=== PATIENT | female | born 1935 | race Caucasian/White ===

== ENCOUNTER 2017-06-17 20:29 | Inpatient (IN) | payer MEDICARE ==
[~2017-06-17] VITALS: Ht 157.5 cm; Wt 78.5 kg
[~2017-06-17 20:29] MED LIST: ACCUNEB0.63 MG/3; ADVIL200 M1 PO; ANASTROZOLE1 GM PO; ASPIR 8181 MG PO; AZOR 10-20 MG1 EACH PO; BETIMOL5 M1 OU; CARVEDILOL6.25 MG PO; CLOPIDOGREL75 MG PO; FEXOFENADINE H180 MG PO; FLONASE16 GM; GLIPIZIDE ER2.5 MG PO; GLUCOPHAGE500 MG PO; HYDROCHLOROTH12.5 MG PO; NEXIUM40 MG PO; OMEPRAZOLE20 M1 PO; PANTOPRAZOLE SO40 MG PO; PROAIR HFA INH8.5 GM IH; REGLAN10 MG PO; SIMVASTATIN20 MG PO; SYMBICORT 80-10.2 GM INH; VITAMIN C60 MG PO; VITAMIN D400 UNIT PO; ZYRTEC5 M1 PO; [UNRECOGNIZED DRUG - OTHER] PO; nasacort
[2017-06-17] MEDS ORDERED: ASPIRIN 81 MG CHEW TAB PO ONE (20:45)
[2017-06-17] MEDS ORDERED: NITROGLYCERIN 2% OINT 1 GM PKT TOP ONE (20:45)
[2017-06-17] MEDS ORDERED: ASPIRIN 81 MG CHEW TAB ONE (20:54)
[2017-06-17 21:00] LABS: BASOPHILS # (AUTO) 0.1 (0.0-0.1); BASOPHILS % 0.6 % (0.0-1.0); EOSINOPHILS # (AUTO) 0.2 (0.0-0.4); EOSINOPHILS % 1.5 % (0.0-6.0); HEMATOCRIT 43.5 % (34.2-44.1); HEMOGLOBIN 14.6 g/dL (12.0-16.0); LYMPHOCYTES # (AUTO) 1.7 (1.0-3.2); MEAN CORPUSCULAR HEMOGLOBIN 29.6 pg (28-32); MEAN CORPUSCULAR HGB CONC 33.6 g/dL (31-35); MEAN CORPUSCULAR VOLUME 88.1 fL (81-99); MONOCYTES # (AUTO) 0.5 (0.2-0.8); MONOCYTES % 5.4 % (4.4-11.3); NEUTROPHILS # (AUTO) 7.5 (2.1-6.9); NEUTROPHILS % 74.9 % (38.7-80.0); PLATELET COUNT 231 x10e3/uL (140-360); RED BLOOD COUNT 4.94 x10e6/uL (3.6-5.1); RED CELL DISTRIBUTION WIDTH 14.5 % (11.7-14.4)
[2017-06-17 21:03] LABS: BILIRUBIN,URINE NEGATIVE (NEGATIVE); CLARITY,URINE CLEAR (CLEAR); COLOR,URINE YELLOW (YELLOW); KETONES,URINE NEGATIVE (NEGATIVE); LEUKOCYTE ESTERASE ,URINE NEGATIVE (NEGATIVE); NITRITE,URINE NEGATIVE (NEGATIVE); PROTEIN,URINE DIPSTICK NEGATIVE (NEGATIVE); URINE UROBILINOGEN 0.2 mg/dL (0.2 - 1)
[2017-06-17 21:12] LABS: ALANINE AMINOTRANSFERASE 8 IU/L (0-55); ALBUMIN 3.7 g/dL (3.5-5.0); ALBUMIN/GLOBULIN RATIO 1.1 (0.8-2.0); ALKALINE PHOSPHATASE 84 IU/L (40-150); ANION GAP 15.7 mmol/L (8-16); BLOOD UREA NITROGEN 15 mg/dL (7-26); BUN/CREATININE RATIO 18 (6-25); CALCIUM 8.9 mg/dL (8.4-10.2); CARBON DIOXIDE 22 mmol/L (22-29); CHLORIDE 107 mmol/L (98-107); CREATINE KINASE 49 IU/L (29-168); CREATININE, SERUM 0.85 mg/dL (0.57-1.11); EST GLOMERULAR FILTRATION RATE > 60 ML/MIN (60-); GLUCOSE 156 mg/dL (74-118); POTASSIUM 3.7 mmol/L (3.5-5.1); SODIUM 141 mmol/L (136-145)
[2017-06-17] MEDS ORDERED: BIVALIRUDIN 250 MG/VIAL IV ONE ×2 (21:23→23:12)
[2017-06-17] MEDS ORDERED: HEPARIN SOD (PORCINE) 1000 UNIT/ML 30ML ONE (21:23)
[2017-06-17] MEDS ORDERED: NITROGLYCERIN/D5W 200 MCG/ML 0 ML ONE (21:24)
[2017-06-17] MEDS ORDERED: LIDOCAINE HCL 2% LOCAL 20 ML VIAL ONE (21:24)
[2017-06-17] MEDS ORDERED: HEPARIN SOD/SOD CHLORIDE 2,000 ML ONE (21:24)
[2017-06-17] MEDS ORDERED: SODIUM CHLORIDE 0.9% 1000ML 1,000 ML ONE ×2 (21:24→22:27)
[2017-06-17] MEDS ORDERED: IOPAMIDOL 300MG/ML 100 ML INFUS..BTL IV ONE (21:25)
--- OUTSIDE RECORDS SUMMARY | 2017-06-17 21:29 | XMS REPORT | Continuity of Care Document ---
Author Author [facility] Organization [facility] Address [address] [place] [address] Phone Unavailable Care Team Providers Care Mangle Tender Cloth Name Role Phone NONSTAFF PCP Unavailable Insurance Providers Guarantor Silverio Polanco Address [address] [place] [address] Email NONE Payer [employer] Medicare Advantage Policy Number [id number] Subscriber's Name Silverio Polanco Relationship 18 Self / Same As Patient Effective Date 13 Advance Directives Directive Response Recorded Date/Time Does the patient have an advance directive? No 02/13/16 5:15pm If yes, is advance directive on file with [facility]? No 02/13/16 5:15pm If not on file with [facility] will patient provide a copy? Yes 06/17/17 8:33pm Do you have a Directive to Physician? No 06/17/17 8:33pm Do you have a Medical Power of Ledger Clerk? No 06/17/17 8:33pm Do you have an out of hospital Do Not Resuscitate Order? No 06/17/17 8:33pm Do you have any special needs we should be aware of? No 06/17/17 8:33pm Do you have a support person here with you today? Yes 06/17/17 8:33pm Did patient receive Notice of Privacy Practices? Yes 06/17/17 8:33pm Did patient receive patient rights and responsibilities? Yes 06/17/17 8:33pm Problems Medical Problem Onset Date Status Esophageal stricture 02/24/2015 Acute History of esophageal stricture 02/24/2015 Acute History of esophageal stricture 02/24/2015 Acute History of esophageal stricture 02/24/2015 Acute Stricture esophagus 02/24/2015 Acute Stricture esophagus 02/24/2015 Acute Vomiting 02/24/2015 Acute Medications Current Home Medications Medication Dose Units Route Directions Days Qty Instructions Start Date Albuterol Sulfate (Proair Hfa Inhaler*) 8.5 Gm Inh 2 Inh Inhalation Every 6 Hours for Shortness Of Breath Amlodipine Bes/Olmesartan Med (Tushar 10-20 Mg Tablet) 1 Each Tablet 5 Mg Oral Twice A Day Anastrozole 1 Gm Powder 1 Mg Oral Daily Budesonide/Formoterol Fumarate (Symbicort 80-4.5 Mcg Inhaler) 10.2 Gm Hfa.aer.ad 1 Each Inhalation Twice A Day Carvedilol 6.25 Mg Tablet 6.25 Mg Oral Twice A Day Cholecalciferol (Vitamin D3) (Vitamin D) 400 Unit Capsule Oral Daily Clopidogrel Bisulfate (Clopidogrel) 75 Mg Tablet 75 Mg Oral Daily 30 Tab Fexofenadine Hcl 180 Mg Tablet 180 Mg Oral Bedtime THERAPEUTICALLY SUBSTITUTED WITH LORATIDINE Glipizide (Glipizide Er) 2.5 Mg Tab.er.24 2.5 Mg Oral Am Ibuprofen (Advil) 200 Mg Capsule 200 Mg Oral As Needed Metoclopramide Hcl (Reglan) 10 Mg Tablet 10 Mg Oral Before Meals And At Bedtime 30 Days 02/26/15 Nasacort 1 [place] Nasal Daily as needed for Nasal Congestion Pantoprazole Sodium (Protonix) 40 Mg Tablet.dr 40 Mg Oral Daily Simvastatin 20 Mg Tablet 20 Mg Oral Qhs Timolol (Betimol) 5 Ml Drops 0.5 Past Home Medications Medication Directions Ordered Status Albuterol Sulfate (Accuneb) 0.63 Mg/3 Ml Vial.neb, 90 Mcg Four Times Daily Discontinued Ascorbic Acid (Vitamin C) 60 Mg Lozenge, Oral Daily Discontinued Aspirin (Aspir 81) 81 Mg Tablet.dr, 81 Mg Oral Daily Discontinued Cetirizine Hcl (Zyrtec) 5 Mg Tab.chew, Oral Daily Discontinued Esomeprazole Magnesium (Nexium) 40 Mg Capsule.dr, 40 Mg Oral Before Breakfast 02/26/15 Discontinued Fluticasone Propionate (Flonase) 16 Gm [place].susp, 2 Daily Discontinued Hydrochlorothiazide 12.5 Mg Tablet, 12.5 Mg Oral Daily 02/26/15 Discontinued Metformin Hcl (Glucophage) 500 Mg Tablet, 500 Mg Oral Twice A Day Discontinued Omeprazole 20 Mg Tablet.dr, 20 Mg Oral Daily Discontinued Pseudoephed/Chlorpheniramine (Chlorphen-Pse Drops) 30 Ml Drops, Oral Discontinued Social History Social History Problem Response Recorded Date/Time Onset Date Status Hx Psychiatric Problems No 02/13/2016 5:15pm Not Applicable Not Applicable Hx Eating Disorder No 02/13/2016 5:15pm Not Applicable Not Applicable Hx Substance Use Disorder No 02/13/2016 5:15pm Not Applicable Not Applicable Hx Depression No 02/13/2016 5:15pm Not Applicable Not Applicable Hx Alcohol Use No 02/13/2016 5:15pm Not Applicable Not Applicable Hx Substance Use Treatment No 02/13/2016 5:15pm Not Applicable Not Applicable Hx Physical Abuse No 02/13/2016 5:15pm Not Applicable Not Applicable Smoking Status Start Date Stop Date Never Smoker Hospital Discharge Instructions No hospital discharge instruction information available. Plan of Care Discharge Date 06/17/17 9:08pm Disposition ADMITTED Condition at Discharge Stable Forms Provided Work/School Excuse Prescriptions See Medication Section Functional Status No functional status information available. Allergies, Adverse Reactions, Alerts Allergen Type Severity Reaction Status Last Updated Tramadol Adverse Reaction Unknown NAUSEA Active 02/13/16 ALPHANGAN Allergy Intermediate ITCHING Active 02/13/16 PCN Allergy Unknown UNKNOWN Active 02/13/16 Immunizations No immunization information available. Vital Signs Acute Vital Signs Vital Response Date/Time Height 5 ft 3 in 06/17/2017 8:32pm Weight 163 lb 06/17/2017 8:32pm Body Mass Index 28.9 kg/m^2 06/17/2017 8:32pm Results Laboratory Results Test Name Result Units Flags Reference Collection Date/Time Result Date/ Time Comments White Blood Count 9.97 x10e3/uL 4.8-10.8 06/17/2017 8:45pm 06/17/2017 9 :06pm Red Blood Count 4.94 x10e6/uL 3.6-5.1 06/17/2017 8:45pm 06/17/2017 9: 06pm Hemoglobin 14.6 g/dL 12.0-16.0 06/17/2017 8:45pm 06/17/2017 9:06pm Hematocrit 43.5 % 34.2-44.1 06/17/2017 8:45pm 06/17/2017 9:06pm Mean Corpuscular Volume 88.1 fL 81-99 06/17/2017 8:45pm 06/17/2017 9: 06pm Mean Corpuscular Hemoglobin 29.6 pg 28-32 06/17/2017 8:45pm 06/17/2017 9:06pm Mean Corpuscular Hemoglobin Concent 33.6 g/dL 31-35 06/17/2017 8:45pm 06/17/2017 9:06pm Red Cell Distribution Width 14.5 % H 11.7-14.4 06/17/2017 8:45pm 2017 9:06pm Platelet Count 231 x10e3/uL 140-360 06/17/2017 8:45pm 06/17/2017 9: 06pm Neutrophils (%) (Auto) 74.9 % 38.7-80.0 06/17/2017 8:45pm 06/17/2017 9: 06pm Lymphocytes (%) (Auto) 17.0 % L 18.0-39.1 06/17/2017 8:45pm 06/17/2017 9 :06pm Monocytes (%) (Auto) 5.4 % 4.4-11.3 06/17/2017 8:45pm 06/17/2017 9: 06pm Eosinophils (%) (Auto) 1.5 % 0.0-6.0 06/17/2017 8:45pm 06/17/2017 9: 06pm Basophils (%) (Auto) 0.6 % 0.0-1.0 06/17/2017 8:45pm 06/17/2017 9:06pm IM GRANULOCYTES % 0.6 % 0.0-1.0 06/17/2017 8:45pm 06/17/2017 9:06pm Neutrophils # (Auto) 7.5 H 2.1-6.9 06/17/2017 8:45pm 06/17/2017 9: 06pm Lymphocytes # (Auto) 1.7 1.0-3.2 06/17/2017 8:45pm 06/17/2017 9:06pm Monocytes # (Auto) 0.5 0.2-0.8 06/17/2017 8:45pm 06/17/2017 9:06pm Eosinophils # (Auto) 0.2 0.0-0.4 06/17/2017 8:45pm 06/17/2017 9:06pm Basophils # (Auto) 0.1 0.0-0.1 06/17/2017 8:45pm 06/17/2017 9:06pm Absolute Immature Granulocyte (auto 0.06 x10e3/uL 0-0.1 06/17/2017 8: 45pm 06/17/2017 9:06pm Urine Color YELLOW YELLOW 06/17/2017 8:45pm 06/17/2017 9:05pm Urine Clarity CLEAR CLEAR 06/17/2017 8:45pm 06/17/2017 9:05pm Urine Specific [place] 1.020 1.010-1.025 06/17/2017 8:45pm 2017 9:05pm Urine pH 6.5 5 - 7 06/17/2017 8:45pm 06/17/2017 9:05pm Urine Leukocyte Esterase NEGATIVE NEGATIVE 06/17/2017 8:45pm 2017 9:05pm Urine Nitrite NEGATIVE NEGATIVE 06/17/2017 8:45pm 06/17/2017 9:05pm Urine Protein NEGATIVE NEGATIVE 06/17/2017 8:45pm 06/17/2017 9:05pm Urine Glucose (UA) TRACE H NEGATIVE 06/17/2017 8:45pm 06/17/2017 9: 05pm Urine Ketones NEGATIVE NEGATIVE 06/17/2017 8:45pm 06/17/2017 9:05pm Urine Urobilinogen 0.2 mg/dL 0.2 - 1 06/17/2017 8:45pm 06/17/2017 9: 05pm Urine Bilirubin NEGATIVE NEGATIVE 06/17/2017 8:45pm 06/17/2017 9: 05pm Urine Blood TRACE H NEGATIVE 06/17/2017 8:45pm 06/17/2017 9:05pm Sodium Level 141 mmol/L 136-145 06/17/2017 8:45pm 06/17/2017 9:13pm Potassium Level 3.7 mmol/L 3.5-5.1 06/17/2017 8:45pm 06/17/2017 9:13pm Chloride Level 107 mmol/L 98-107 06/17/2017 8:45pm 06/17/2017 9:13pm Carbon Dioxide Level 22 mmol/L 22-29 06/17/2017 8:45pm 06/17/2017 9: 13pm Anion Gap 15.7 mmol/L 8-16 06/17/2017 8:45pm 06/17/2017 9:13pm Blood Urea Nitrogen 15 mg/dL 7-26 06/17/2017 8:45pm 06/17/2017 9:13pm Creatinine 0.85 mg/dL 0.57-1.11 06/17/2017 8:45pm 06/17/2017 9:13pm BUN/Creatinine Ratio 18 6-25 06/17/2017 8:45pm 06/17/2017 9:13pm Estimat Glomerular Filtration Rate > 60 ML/MIN 60- 06/17/2017 8:45pm 9:13pm Ranges were taken from the National Kidney Disease Education Program and the National Kid[employer] Foundation literature. Reference ranges: 60 or greater: Normal 16-59 (for 3 consecutive months): Chronic kidney disease 15 or less: Kidney failure Glucose Level 156 mg/dL H 74-118 06/17/2017 8:45pm 06/17/2017 9:13pm Calcium Level 8.9 mg/dL 8.4-10.2 06/17/2017 8:45pm 06/17/2017 9:13pm Total Bilirubin 0.5 mg/dL 0.2-1.2 06/17/2017 8:45pm 06/17/2017 9:13pm Aspartate Amino Transf (AST/SGOT) 13 IU/L 5-34 06/17/2017 8:45pm 2017 9:13pm Alanine Aminotransferase (ALT/SGPT) 8 IU/L 0-55 06/17/2017 8:45pm 06/17 9:13pm Total Protein 7.2 g/dL 6.5-8.1 06/17/2017 8:45pm 06/17/2017 9:13pm Albumin 3.7 g/dL 3.5-5.0 06/17/2017 8:45pm 06/17/2017 9:13pm Globulin 3.5 g/dL 2.3-3.5 06/17/2017 8:45pm 06/17/2017 9:13pm Albumin/Globulin Ratio 1.1 0.8-2.0 06/17/2017 8:45pm 06/17/2017 9: 13pm Alkaline Phosphatase 84 IU/L 40-150 06/17/2017 8:45pm 06/17/2017 9: 13pm Creatine Kinase 49 IU/L 29-168 06/17/2017 8:45pm 06/17/2017 9:13pm Procedures No procedure information available. Encounters Encounter Location Arrival/Admit Date Discharge/Depart Date Attending Provider Departed Emergency Room [facility] 06/17/17 8:29pm 9:08pm LEONORA BUTTERFIELD MD
--- NOTE | 2017-06-17 21:32 | Diagnostic Imaging Report ---
EXAMINATION: CHEST SINGLE (PORTABLE) INDICATION: Chest pain COMPARISON: None FINDINGS: TUBES and LINES: None. LUNGS: Lungs are not well inflated. There are bibasilar atelectasis. Scarring at the level of the right suprahilar region PLEURA: No pleural effusion or pneumothorax. HEART AND MEDIASTINUM: The cardiomediastinal silhouette is remarkable for right hilar calcification, most likely postsurgical. There are atherosclerotic calcifications within the aorta. BONES AND SOFT TISSUES: No acute osseous lesion. Dextrorotoscoliosis of the thoracic spine. Soft tissues are unremarkable. UPPER ABDOMEN: No free air under the diaphragm. IMPRESSION: 1. No acute thoracic abnormality. 2. Postsurgical changes noted in the right hilar region with prominent calcification compatible with lymph node Signed by: Dr. Jamie Cevallos M.D. on 06/17/2017 9:29 PM
[2017-06-17] MEDS ORDERED: SODIUM CHLORIDE 0.9% 100 ML 100 ML ONE ×2 (21:35→23:12)
[2017-06-17 21:52] LABS: BACTERIA,URINE FEW /HPF; EPITHELIAL CELLS,URINE MODERATE /LPF; RBC,URINE 0-5 /HPF (0-5); WBC,URINE (MAN) 0-5 /HPF (0-5)
[2017-06-17] MEDS ORDERED: MORPHINE SULFATE 2 MG/ML SYR ONE (22:09)
[2017-06-17] MEDS ORDERED: ATROPINE SULFATE 0.1 MG/ML 10ML SYR ONE ×2 (22:20→22:22)
[2017-06-17] MEDS ORDERED: NOREPINEPHRINE BITARTRATE/ NS 250 ML ONE (22:30)
[2017-06-17] MEDS ORDERED: ASPIRIN 325 MG TAB ONE (22:36)
[2017-06-17] MEDS ORDERED: CLOPIDOGREL BISULFATE 75 MG TAB ONE (22:36)
[2017-06-17] MEDS ORDERED: ONDANSETRON HCL INJ 2 MG/ML VIAL ONE ×2 (22:47→23:21)
[2017-06-17 23:54] VITALS: BP 65/40
--- OUTSIDE RECORDS SUMMARY | 2017-06-17 23:54 | XMS REPORT ---
[facility] Address Unknown Phone Unavailable Care Team Providers Care Food Safety Field Specialist Name Role Phone PAULINE HUGHES Unavailable Unavailable Problems This patient has no known problems. Allergies, Adverse Reactions, Alerts This patient has no known allergies or adverse reactions. Medications This patient has no known medications. Results Test Description Test Time Test Comments Text Results Atomic Results Result Comments CHEST SINGLE (PORTABLE) [place] [address] Patient Name: SILVERIO SANTOS MR #: [id number] : 1935 Age/Sex: 81/F Req #: [id number] Adm Physician: Ordered by: LEONORA BUTTERFIELD MD Report #: [id number] Location: COMPLETION ENGINEER Room/Bed: Procedure: [id number] DX/CHEST SINGLE (PORTABLE) Exam Date: Exam Time: 2100 REPORT STATUS: Signed EXAMINATION: CHEST SINGLE (PORTABLE) INDICATION: Chest pain COMPARISON: None FINDINGS: TUBES and LINES: None. LUNGS: Lungs are not well inflated. There are bibasilar atelectasis. Scarring at the level of the right suprahilar region PLEURA: No pleural effusion or pneumothorax. HEART AND MEDIASTINUM: The cardiomediastinal silhouette is remarkable for right hilar calcification, most likely postsurgical. There are atherosclerotic calcifications within the aorta. BONES AND SOFT TISSUES: No acute osseous lesion. Dextrorotoscoliosis of the thoracic spine. Soft tissues are unremarkable. UPPER ABDOMEN: No free air under the diaphragm. IMPRESSION: 1. No acute thoracic abnormality. 2. Postsurgical changes noted in the right hilar region with prominent calcification compatible with lymph node Signed by: Dr. Jamie Cevallos M.D. on 06/17/2017 9:29 PM Dictated By: JAMIE MENDOZA MD 28 Transcribed By: FLORENCIO on 06/17/172128 COPY TO: LEONORA BUTTERFIELD MD
[2017-06-18] VITALS (51 sets, daily range): BP systolic 65–141; BP diastolic 40–129
--- NOTE | 2017-06-18 01:13 | Operative Report ---
DATE OF PROCEDURE: June 17, 2017 PROCEDURES: 1. Left heart catheterization. 2. Selective coronary angiogram. 3. Balloon angioplasty of the right coronary artery. 4. Stent placement in the right coronary artery. INDICATIONS: Acute inferolateral wall myocardial infarction. ANESTHESIA: 2% lidocaine for local anesthesia. BLOOD LOSS: 20 mL. DESCRIPTION OF PROCEDURE: After informed consent, patient was brought to the cardiac catheterization laboratory and placed on table. Both groins were painted and draped in a sterile fashion. Lidocaine was injected in the right groin for local anesthesia. Right femoral artery was accessed by Seldinger technique. However, a J-wire would not advance and so a Wholey wire was used. Wholey wire also would not advance and the needle had to be flushed. Subsequently, the Wholey wire would advance. There was calcification in the artery, which was pretty obvious while accessing the artery. The Wholey wire buckled in the right iliac artery. A 6-Bolivian sheath was placed in the right femoral artery. The Wholey wire was manipulated and advanced into the aorta. The right coronary artery was cannulated using a JR4 5-Bolivian catheter. A coronary angiogram was performed and images obtained in multiple views. The left main was cannulated using JL4 5-Bolivian catheter. Coronary angiogram was performed and images were obtained in multiple views. The catheters were exchanged over THE Wholey wire. Attempts were made to cannulate the right coronary artery using an AL 0.75 and JR4 6-Bolivian guides. However, it would access the ostium very partially without good support. It was difficult to manipulate the guides and also the guide was kinking. So, the 6-Bolivian sheath on the femoral artery was removed and exchanged for a long 6-Bolivian sheath. The right coronary artery was eventually cannulated using a hockey stick 6-Bolivian guide with side holes. A Runthrough wire was advanced through the right coronary artery and placed in the distal posterior descending artery. The lesion was dilated at 8 to 10 atmospheres using a 2 x 12 mm Emerge balloon. Multiple dilatations were performed. Subsequently, attempts were made to pass a 2.75 x 20 mm Synergy drug-eluting stent. However, the stent would not advance beyond the lesion. So, a ChoICE PT wire used as a daren wire. Since the position of the ChoICE PT wire was in a better position, the 2 x 12 mm Emerge balloon was advanced and the lesion was dilated again multiple times. Still the stent would not advance. So, a 2.5 x 12 mm Emerge balloon was advanced over the wire and the lesion was dilated at 8 atmospheres for about 15 to 20 seconds. The balloon was removed and subsequently a 2.75 x 20 mm Emerge stent was deployed across the lesion at 8 atmospheres for about 15 to 20 seconds. All this was performed under constant fluoroscopic guidance. High-pressure inflation was not performed due to the sizing of the vessel. Excellent results were obtained and there was ALLIE-3 flow into the distal right coronary artery. Patient was given Angiomax, aspirin, and Plavix during the procedure. Patient tolerated the procedure without any complications. REPORT: LEFT MAIN: Normal caliber, has luminal irregularities. LEFT ANTERIOR DESCENDING: Normal caliber, has luminal irregularities. LEFT CIRCUMFLEX: Normal caliber, has luminal irregularities. RIGHT CORONARY ARTERY: Normal caliber. There is 20% to 30% proximal lesion and a 100% distal lesion which did appear to be calcified. BALLOON USED: A 2 x 12 mm Emerge and a 2.5 x 12 mm Emerge. STENT USED: A 2.75 x 20 mm Synergy drug-eluting stent in the distal right coronary artery. There was ALLIE-3 flow and less than 10% residual stenosis. Job#: [id number] DR MENG
[2017-06-18] MEDS ORDERED: DEXTROSE 50% SYRINGE 50 ML IV PRN (01:30)
[2017-06-18] MEDS ORDERED: ONDANSETRON HCL INJ 2 MG/ML VIAL IV PRN (01:30)
[2017-06-18] MEDS ORDERED: MORPHINE SULFATE 4 MG/ML SYR IV PRN (01:30)
[2017-06-18] MEDS: SODIUM CHLORIDE 0.45% 1,000 ML IV SCH ×2 (01:51→14:50)
[2017-06-18 01:56] LABS: BILIRUBIN,URINE NEGATIVE (NEGATIVE); KETONES,URINE 1+ (NEGATIVE); LEUKOCYTE ESTERASE ,URINE NEGATIVE (NEGATIVE); NITRITE,URINE NEGATIVE (NEGATIVE); PROTEIN,URINE DIPSTICK NEGATIVE (NEGATIVE); URINE UROBILINOGEN 0.2 mg/dL (0.2 - 1)
[2017-06-18 03:06] LABS: CLARITY,URINE CLEAR (CLEAR); COLOR,URINE YELLOW (YELLOW)
[2017-06-18 03:08] LABS: EPITHELIAL CELLS,URINE RARE /LPF; RBC,URINE 0-5 /HPF (0-5); WBC,URINE (MAN) 0-5 /HPF (0-5)
[2017-06-18] MEDS ORDERED: MORPHINE SULFATE 2 MG/ML SYR IV PRN (03:22)
[2017-06-18] MEDS: MORPHINE SULFATE 2 MG/ML SYR IV PRN ×2 (03:23→05:18)
[2017-06-18 05:48] LABS: BASOPHILS % 0.3 % (0.0-1.0); HEMATOCRIT 37.5 % (34.2-44.1); HEMOGLOBIN 12.8 g/dL (12.0-16.0); LYMPHOCYTES # (AUTO) 1.5 (1.0-3.2); LYMPHOCYTES % 11.7 % (18.0-39.1); MEAN CORPUSCULAR HEMOGLOBIN 29.8 pg (28-32); MEAN CORPUSCULAR HGB CONC 34.1 g/dL (31-35); MEAN CORPUSCULAR VOLUME 87.4 fL (81-99); MONOCYTES # (AUTO) 1.1 (0.2-0.8); MONOCYTES % 8.3 % (4.4-11.3); NEUTROPHILS # (AUTO) 10.1 (2.1-6.9); PLATELET COUNT 231 x10e3/uL (140-360); RED BLOOD COUNT 4.29 x10e6/uL (3.6-5.1); RED CELL DISTRIBUTION WIDTH 14.2 % (11.7-14.4)
--- NOTE | 2017-06-18 05:55 | Consultation ---
DATE OF CONSULTATION: June 17, 2017 REQUESTING PHYSICIAN: Dr. Soliz. REASON FOR CONSULT: Inferolateral myocardial infarction. HISTORY OF PRESENT ILLNESS: Ms. Polanco is an 81-year-old lady with past medical history as listed below, reportedly developed chest pain at 4 p.m. this evening. She thought it was heartburn; so, the daughter gave her some antacids. The pain continued to persist; so, they called [facility] where she goes in and they were asked to call 911. However, the patient refused and so the daughter brought her by ambulance. On her EKG, patient was noted to have ST elevations in the inferolateral leads and so I was called for cardiac catheterization and possible PCI. Patient is much more comfortable apparently after she was placed on oxygen. Her pain has decreased and almost resolved. She was a little short of breath. Denies any abdominal pain, vomiting, or diarrhea. REVIEW OF SYMPTOMS CONSTITUTIONAL: Has some fatigue and weakness. HEENT: No headache, blurring of vision, seizures, or syncope. CARDIOVASCULAR: Had chest pain. Has some dyspnea. No orthopnea or PND. RESPIRATORY: No cough, fever, or expectoration. GI: No abdominal pain, vomiting, or diarrhea. : No dysuria, frequency, or incontinence. ALLERGIES: SEE LIST. MEDICATIONS: See list. PAST MEDICAL HISTORY 1. History of hypertension. 2. History of PAD. SOCIAL HISTORY: Quit smoking some 12 years back. Does not drink alcohol. FAMILY HISTORY: Noncontributory. PHYSICAL EXAMINATION GENERAL: Well built, nourished lady, alert, oriented, not in obvious distress. VITALS: Heart rate is 84, blood pressure is 126/74. HEENT: Atraumatic. NECK: No JVD, bruit, thyromegaly, or lymphadenopathy. CARDIOVASCULAR: First and 2nd heart sounds heard. No murmurs, rubs, or gallops appreciated. CHEST: Decreased air entry at the bases. No adventitious sounds appreciated. ABDOMEN: Soft and nontender. EXTREMITIES: No edema. LABS: EKG shows sinus rhythm at 88 beats per minute. Normal axis, normal intervals. ST elevations at 1 to 3 mm, II, III, aVF, V3 to V6 and ST depression I, aVL, V1 and V2. Other labs are pending. IMPRESSIONS 1. Acute inferolateral wall myocardial infarction. 2. History of hypertension. 3. Tobacco use. 4. Peripheral arterial disease. PLAN 1. Due to EKG changes and symptoms, patient is being taken to the cardiac catheterization laboratory for cardiac cath and possible primary PCI. Patient and the family have been explained about the procedure, risks, benefits, complications, and alternatives. They understand and agree to it. 2. Will treat patient with appropriate medications including aspirin, statins, beta blockers, anticoagulants, antiplatelet agents, etc., as indicated. 3. At the time of dictation, patient is being brought from the ER the research lab assistant. As always, I appreciate and thank you very much for your referral. Job#: [id number] CF
[2017-06-18 06:09] LABS: ALANINE AMINOTRANSFERASE 14 IU/L (0-55); ALBUMIN 3.1 g/dL (3.5-5.0); ALBUMIN/GLOBULIN RATIO 1.1 (0.8-2.0); ALKALINE PHOSPHATASE 63 IU/L (40-150); ANION GAP 14.9 mmol/L (8-16); BLOOD UREA NITROGEN 14 mg/dL (7-26); BUN/CREATININE RATIO 18 (6-25); CALCIUM 7.6 mg/dL (8.4-10.2); CARBON DIOXIDE 18 mmol/L (22-29); CHLORIDE 107 mmol/L (98-107); EST GLOMERULAR FILTRATION RATE > 60 ML/MIN (60-); GLUCOSE 253 mg/dL (74-118); SODIUM 137 mmol/L (136-145)
[2017-06-18 06:13] LABS: POTASSIUM 2.9 mmol/L (3.5-5.1)
[2017-06-18] MEDS ORDERED: POTASSIUM CHLORIDE 20 MEQ TAB CR PO STA (06:21)
[2017-06-18 06:56] LABS: ALBUMIN 3.1 g/dL (3.5-5.0); BILIRUBIN,DIRECT 0.4 mg/dL (0.0-0.5); CHOL/HDL RATIO 2.5 (3.0-3.6)
[2017-06-18] MEDS: INSULIN LISPRO 100 UNIT/1 ML 3ML VIAL SQ SCH ×4 (07:30→21:00)
[2017-06-18] MEDS ORDERED: POTASSIUM CHLORIDE 20 MEQ TAB CR PO SCH (07:30)
[2017-06-18] MEDS: FAMOTIDINE 20 MG/2 ML VIAL IV SCH ×2 (09:00→17:00)
[2017-06-18] MEDS: CLOPIDOGREL BISULFATE 75 MG TAB PO SCH (09:00)
[2017-06-18] MEDS: ASPIRIN 325 MG TAB PO SCH (09:00)
[2017-06-18] MEDS ORDERED: POTASSIUM CHLORIDE 10 MEQ TABCR PO ONE (15:00)
[2017-06-18] MEDS: ATORVASTATIN 20 MG TAB PO SCH (21:55)
[2017-06-19] VITALS (15 sets, daily range): BP systolic 94–123; BP diastolic 52–73
[2017-06-19] MEDS: SODIUM CHLORIDE 0.45% 1,000 ML IV SCH ×2 (04:10→11:30)
[2017-06-19 06:00] LABS: BASOPHILS % 0.4 % (0.0-1.0); EOSINOPHILS # (AUTO) 0.1 (0.0-0.4); EOSINOPHILS % 1.8 % (0.0-6.0); HEMATOCRIT 32.4 % (34.2-44.1); HEMOGLOBIN 10.4 g/dL (12.0-16.0); LYMPHOCYTES # (AUTO) 1.5 (1.0-3.2); LYMPHOCYTES % 19.5 % (18.0-39.1); MEAN CORPUSCULAR HEMOGLOBIN 29.7 pg (28-32); MEAN CORPUSCULAR HGB CONC 32.1 g/dL (31-35); MEAN CORPUSCULAR VOLUME 92.6 fL (81-99); MONOCYTES # (AUTO) 0.8 (0.2-0.8); MONOCYTES % 10.5 % (4.4-11.3); NEUTROPHILS # (AUTO) 5.1 (2.1-6.9); NEUTROPHILS % 67.5 % (38.7-80.0); PLATELET COUNT 160 x10e3/uL (140-360); RED CELL DISTRIBUTION WIDTH 14.9 % (11.7-14.4)
[2017-06-19 06:20] LABS: ANION GAP 10.2 mmol/L (8-16); BLOOD UREA NITROGEN 8 mg/dL (7-26); BUN/CREATININE RATIO 12 (6-25); CALCIUM 7.6 mg/dL (8.4-10.2); CARBON DIOXIDE 23 mmol/L (22-29); CHLORIDE 113 mmol/L (98-107); CREATININE, SERUM 0.69 mg/dL (0.57-1.11); EST GLOMERULAR FILTRATION RATE > 60 ML/MIN (60-); GLUCOSE 103 mg/dL (74-118); POTASSIUM 4.2 mmol/L (3.5-5.1); SODIUM 142 mmol/L (136-145)
[2017-06-19] MEDS: INSULIN LISPRO 100 UNIT/1 ML 3ML VIAL SQ SCH ×4 (07:30→20:46)
[2017-06-19] MEDS: ASPIRIN 325 MG TAB PO SCH (09:00)
[2017-06-19] MEDS: CLOPIDOGREL BISULFATE 75 MG TAB PO SCH (09:00)
[2017-06-19] MEDS: FAMOTIDINE 20 MG/2 ML VIAL IV SCH (09:00)
[2017-06-19] MEDS: FAMOTIDINE 20 MG TAB PO SCH (17:16)
[2017-06-19] MEDS: ATORVASTATIN 20 MG TAB PO SCH (20:46)
[2017-06-20] VITALS: BP 126/58
[2017-06-20 04:00] VITALS: BP 119/56
[2017-06-20] MEDS: INSULIN LISPRO 100 UNIT/1 ML 3ML VIAL SQ SCH (07:30)
[2017-06-20] MEDS: FAMOTIDINE 20 MG TAB PO SCH (07:30)
[2017-06-20 08:35] VITALS: BP 129/60
--- NOTE | 2017-06-20 08:58 | Discharge Summary ---
FINAL DIAGNOSES 1. ST-elevation myocardial infarction. 2. Status post right coronary artery drug-eluting stent placement. 3. Systolic congestive heart failure. Ejection fraction 35%, compensated. 4. Peripheral vascular disease. 5. Diabetes. 6. Chronic obstructive pulmonary disease. 7. History of breast cancer. 8. History of lung cancer. 9. Previous esophageal dilation. 10. Dyslipidemia. CONSULTANTS: Dr. Webber, cardiology. PROCEDURES/STUDIES PERFORMED: Left heart catheterization. PRIMARY CARE DOCTOR: Dr. Ubaldo Ching. HOSPITAL COURSE: The patient was admitted with ST-elevation AR. The patient was emergently taken to the blood bank laboratory technologist by Dr. Webber. A drug-eluting stent was placed in the right coronary artery. Briefly, the patient was on dopamine drip for transient cardiogenic shock. Her EF is 35%. I have informed the family potentially in a month or 2 her EF may bounce back some after her acute AR. At the time of discharge, her blood pressure is much better. I will send her out on very low dose Coreg and lisinopril. The patient is to continue aspirin and Plavix and statin. I have also informed the patient how important it is to be on both aspirin and Plavix for 1 year. As far as her peripheral vascular disease, I had discussed this with Dr. Webber. She needs to continue her outpatient followup with her [facility] specialist. The patient was seen and examined today. It took 33 minutes total to discharge this patient. I have updated her PCP as well of this hospitalization. PARDEEP GUZMAN M.D. Job#: [id number] RI cc: UBALDO CHING MD
[2017-06-20] MEDS: CLOPIDOGREL BISULFATE 75 MG TAB PO SCH (09:00)
[2017-06-20] MEDS: ASPIRIN 325 MG TAB PO SCH (09:00)
== END 2017-06-20 09:40 | disposition home or self-care (01) | DRG 246 ==
LOC: ER 20:29 → CATH LAB 21:08 → ICU 23:45 → MED/SURG 06-19 15:48
PROVIDERS: ADMIT Internal Medicine; ATTEND Internal Medicine
PROC: 4A023N7 Measurement of Cardiac Sampling and Pressure, Left Heart, Percutaneous Approach (ICD-10-PCS; principal; 2017-06-17)
PROC: 027034Z Dilation of Coronary Artery, One Artery with Drug-eluting Intraluminal Device, Percutaneous Approach (ICD-10-PCS; 2017-06-17)
PROC: 02703ZZ Dilation of Coronary Artery, One Artery, Percutaneous Approach (ICD-10-PCS; 2017-06-17)
PROC: B2111ZZ Fluoroscopy of Multiple Coronary Arteries using Low Osmolar Contrast (ICD-10-PCS; 2017-06-17)
DX: I21.19 ST elevation (STEMI) myocardial infarction involving other coronary artery of inferior wall (principal); I50.23 Acute on chronic systolic (congestive) heart failure; R57.0 Cardiogenic shock; E11.51 Type 2 diabetes mellitus with diabetic peripheral angiopathy without gangrene; J44.9 Chronic obstructive pulmonary disease, unspecified; I11.0 Hypertensive heart disease with heart failure; Z79.4 Long term (current) use of insulin; E78.5 Hyperlipidemia, unspecified; Z87.891 Personal history of nicotine dependence; E87.6 Hypokalemia
CPT/HCPCS: 36140; 36415; 51701; 71045; 77002; 80048; 80053; 80061; 80076; 81001; 82550; 82553; 82948; 83735; 84484; 85025; 85347; 92920; 93005; 93306; 93458; 93925; 96361; 99284; C1766; C9600; J0583; J1644; J2001; J2270; J2405; J7030; Q9967

== ENCOUNTER 2017-07-01 17:33 | Inpatient (IN) | payer MEDICARE ==
[~2017-07-01] VITALS: Ht 157.5 cm; Wt 77.1 kg
[2017-07-01] VITALS (8 sets, daily range): BP systolic 115–156; BP diastolic 69–88
--- OUTSIDE RECORDS SUMMARY | 2017-07-01 17:36 | XMS REPORT | Continuity of Care Document ---
Author Author [facility] Organization [facility] Address [address] [place] [address] Phone Unavailable Care Team Providers Care Actuarial Mathematician Name Role Phone NONSTAFF PCP Unavailable Insurance Providers Guarantor Silverio Polanco Address [address] [place] [address] Email [email or web address] [email or web address] [employer] Medicare Advantage Policy Number [id number] Subscriber's Name CollinSilverio Hill Relationship 18 Self / Same As Patient Effective Date 13 Advance Directives Directive Response Recorded Date/Time Does the patient have an advance directive? No 06/18/17 12:31am If yes, is advance directive on file with [facility]? No 06/18/17 12:31am If not on file with [facility] will patient provide a copy? No 06/18/17 12:31am Do you have a Directive to Physician? No 06/17/17 8:33pm Do you have a Medical Power of Hair Boiler Operator? No 06/17/17 8:33pm Do you have an [...] At Bedtime 30 Days 02/26/15 Nasacort 1 [place] Nasal Daily as needed for Nasal Congestion [...] 02/26/15 Discontinued Fluticasone Propionate (Flonase) 16 Gm [place].susp, 2 Daily Discontinued Hydrochlorothiazide 12.5 Mg Tablet, 12.5 Mg Oral Daily 02/26/15 Discontinued Metformin Hcl (Glucophage) 500 Mg Tablet, 500 Mg Oral Twice A Day Discontinued Omeprazole 20 Mg Tablet.dr, 20 Mg Oral Daily Discontinued Pseudoephed/Chlorpheniramine (Chlorphen-Pse Drops) 30 Ml Drops, Oral Discontinued Social History Social History Problem Response Recorded Date/Time Onset Date Status Hx Psychiatric Problems No 06/18/2017 12:31am Not Applicable Not Applicable Hx Eating Disorder No 06/18/2017 12:31am Not Applicable Not Applicable Hx Substance Use Disorder No 06/18/2017 12:31am Not Applicable Not Applicable Hx Depression No 06/18/2017 12:31am Not Applicable Not Applicable Hx Alcohol Use No 06/18/2017 12:31am Not Applicable Not Applicable Hx Substance Use Treatment No 06/18/2017 12:31am Not Applicable Not Applicable Hx Physical Abuse No 06/18/2017 12:31am Not Applicable Not Applicable Smoking Status Start Date Stop Date Former smoker Hospital Discharge Instructions No hospital discharge instruction information available. Plan of Care Discharge Date 06/20/17 9:40am Disposition HOME, SELF-CARE Instructions/Education Provided Chest Pain - Chest Wall Prescriptions See Medication Section Additional Instructions/Education CONTINUE CARDIAC DIET AND ACTIVITY TOLERATED. FOLLOW UP WITH DR GUZMAN AND DR WEBBER IN ONE WEEK. Functional Status Query Response Date Recorded Assistive Devices None June 18, 2017 12:00am Ambulation Ability Standby Assistance June 18, 2017 12:00am Toileting Ability Total Assistance June 19, 2017 7:15am Allergies, Adverse Reactions, Alerts Allergen Type Severity Reaction Status Last Updated Penicillin Allergy Unknown Active 06/19/17 Tramadol Adverse Reaction Unknown NAUSEA Active 02/13/16 Brimonidine Allergy Intermediate ITCHING/ ALLERGIC TO "ALPHANGAN" Active 06/19/17 ALPHANGAN Allergy Intermediate ITCHING Active 02/13/16 Immunizations No immunization information available. Vital Signs Acute Vital Signs Vital Response Date/Time Temperature (Fahrenheit) 98.4 degrees F (97.6 - 99.5) 06/20/2017 8:35am Pulse Pulse Rate (adult) 75 bpm (60 - 90) 06/20/2017 8:35am Respiratory Rate 18 bpm (12 - 24) 06/20/2017 8:35am Blood Pressure 129/60 mm Hg 06/20/2017 8:35am Height 5 ft 2 in 06/18/2017 12:31am Weight 173 lb 06/18/2017 1:00am Body Mass Index 31.6 kg/m^2 06/18/2017 1:00am Results Laboratory Results Test Name Result Units Flags Reference Collection Date/Time Result Date/ Time Comments White Blood Count 7.59 x10e3/uL 4.8-10.8 06/19/2017 5:50am 06/19/2017 6 :13am Red Blood Count 3.50 x10e6/uL L 3.6-5.1 06/19/2017 5:50am 06/19/2017 6: 13am Hemoglobin 10.4 g/dL L 12.0-16.0 06/19/2017 5:50am 06/19/2017 6:13am Hematocrit 32.4 % L 34.2-44.1 06/19/2017 5:50am 06/19/2017 6:13am Mean Corpuscular Volume 92.6 fL # 81-99 06/19/2017 5:50am 06/19/2017 6: 13am Mean Corpuscular Hemoglobin 29.7 pg 28-32 06/19/2017 5:50am 06/19/2017 6:13am Mean Corpuscular Hemoglobin Concent 32.1 g/dL 31-35 06/19/2017 5:50am 06/19/2017 6:13am Red Cell Distribution Width 14.9 % H 11.7-14.4 06/19/2017 5:50am 2017 6:13am Platelet Count 160 x10e3/uL 140-360 06/19/2017 5:50am 06/19/2017 6: 13am Neutrophils (%) (Auto) 67.5 % 38.7-80.0 06/19/2017 5:50am 06/19/2017 6: 13am Lymphocytes (%) (Auto) 19.5 % 18.0-39.1 06/19/2017 5:50am 06/19/2017 6: 13am Monocytes (%) (Auto) 10.5 % 4.4-11.3 06/19/2017 5:50am 06/19/2017 6: 13am Eosinophils (%) (Auto) 1.8 % 0.0-6.0 06/19/2017 5:50am 06/19/2017 6: 13am Basophils (%) (Auto) 0.4 % 0.0-1.0 06/19/2017 5:50am 06/19/2017 6:13am IM GRANULOCYTES % 0.3 % 0.0-1.0 06/19/2017 5:50am 06/19/2017 6:13am Neutrophils # (Auto) 5.1 2.1-6.9 06/19/2017 5:50am 06/19/2017 6:13am Lymphocytes # (Auto) 1.5 1.0-3.2 06/19/2017 5:50am 06/19/2017 6:13am Monocytes # (Auto) 0.8 0.2-0.8 06/19/2017 5:50am 06/19/2017 6:13am Eosinophils # (Auto) 0.1 0.0-0.4 06/19/2017 5:50am 06/19/2017 6:13am Basophils # (Auto) 0.0 0.0-0.1 06/19/2017 5:50am 06/19/2017 6:13am Absolute Immature Granulocyte (auto 0.02 x10e3/uL 0-0.1 06/19/2017 5: 50am 06/19/2017 6:13am Urine Color YELLOW YELLOW 06/18/2017 1:30am 06/18/2017 3:06am Urine Clarity CLEAR CLEAR 06/18/2017 1:30am 06/18/2017 3:06am Urine Specific Alpine 1.010 1.010-1.025 06/18/2017 1:30am 2017 3:06am Urine pH 6.5 5 - 7 06/18/2017 1:30am 06/18/2017 3:06am Urine Leukocyte Esterase NEGATIVE NEGATIVE 06/18/2017 1:30am 2017 3:06am Urine Nitrite NEGATIVE NEGATIVE 06/18/2017 1:30am 06/18/2017 3:06am Urine Protein NEGATIVE NEGATIVE 06/18/2017 1:30am 06/18/2017 3:06am Urine Glucose (UA) 1+ H NEGATIVE 06/18/2017 1:30am 06/18/2017 3:06am Urine Ketones 1+ H NEGATIVE 06/18/2017 1:30am 06/18/2017 3:06am Urine Urobilinogen 0.2 mg/dL 0.2 - 1 06/18/2017 1:30am 06/18/2017 3: 06am Urine Bilirubin NEGATIVE NEGATIVE 06/18/2017 1:30am 06/18/2017 3: 06am Urine Blood TRACE H NEGATIVE 06/18/2017 1:30am 06/18/2017 3:06am Urine WBC 0-5 /HPF 0-5 06/18/2017 1:30am 06/18/2017 3:08am Urine RBC 0-5 /HPF 0-5 06/18/2017 1:30am 06/18/2017 3:08am Urine Bacteria NONE /HPF NONE 06/18/2017 1:30am 06/18/2017 3:08am Urine Epithelial Cells RARE /LPF NONE 06/18/2017 1:30am 06/18/2017 3: 08am Sodium Level 142 mmol/L 136-145 06/19/2017 5:50am 06/19/2017 6:24am Potassium Level 4.2 mmol/L # 3.5-5.1 06/19/2017 5:50am 06/19/2017 6:24am Chloride Level 113 mmol/L H 98-107 06/19/2017 5:50am 06/19/2017 6:24am Carbon Dioxide Level 23 mmol/L 22-29 06/19/2017 5:50am 06/19/2017 6: 24am Anion Gap 10.2 mmol/L 8-16 06/19/2017 5:50am 06/19/2017 6:24am Blood Urea Nitrogen 8 mg/dL 7-26 06/19/2017 5:50am 06/19/2017 6:24am Creatinine 0.69 mg/dL 0.57-1.11 06/19/2017 5:50am 06/19/2017 6:24am BUN/Creatinine Ratio 12 6-25 06/19/2017 5:50am 06/19/2017 6:24am Estimat Glomerular Filtration Rate > 60 ML/MIN 60- 06/19/2017 5:50am 6:24am Ranges were taken from the National Kidney Disease Education Program and the National Kidney Foundation literature. Reference ranges: 60 or greater: Normal 16-59 (for 3 consecutive months): Chronic kidney disease 15 or less: Kidney failure Glucose Level 103 mg/dL 74-118 06/19/2017 5:50am 06/19/2017 6:24am Calcium Level 7.6 mg/dL L 8.4-10.2 06/19/2017 5:50am 06/19/2017 6:24am Bedside Glucose 115 mg/dL 70-120 06/20/2017 7:46am 06/20/2017 8:17am Meter ID: [id number] Magnesium Level 1.5 MG/DL 1.3-2.1 06/19/2017 5:50am 06/19/2017 6:32am Total Bilirubin 0.8 mg/dL 0.2-1.2 06/18/2017 5:20am 06/18/2017 7:00am Direct Bilirubin 0.4 mg/dL 0.0-0.5 06/18/2017 5:20am 06/18/2017 7:00am Aspartate Amino Transf (AST/SGOT) 80 IU/L H 5-34 06/18/2017 5:20am 06/18 7:00am Alanine Aminotransferase (ALT/SGPT) 15 IU/L 0-55 06/18/2017 5:20am 02/2018 7:00am Total Protein 6.0 g/dL L 6.5-8.1 06/18/2017 5:20am 06/18/2017 7:00am Albumin 3.1 g/dL L 3.5-5.0 06/18/2017 5:20am 06/18/2017 7:00am Globulin 2.8 g/dL 2.3-3.5 06/18/2017 5:20am 06/18/2017 6:13am Albumin/Globulin Ratio 1.1 0.8-2.0 06/18/2017 5:20am 06/18/2017 6: 13am Alkaline Phosphatase 63 IU/L 40-150 06/18/2017 5:20am 06/18/2017 7: 00am Triglycerides Level 49 MG/DL 0-149 06/18/2017 5:20am 06/18/2017 7:00am Cholesterol Level 100 MD/DL 0-199 06/18/2017 5:20am 06/18/2017 7:00am Less than 200 mg/dL Low Risk 201 - 239 mg/dL Borderline Risk 240 mg/dl and greater High Risk LDL Cholesterol 50 MG/DL L 60-130 06/18/2017 5:20am 06/18/2017 7:00am HDL Cholesterol 40 MG/DL 40-60 06/18/2017 5:20am 06/18/2017 7:00am Cholesterol/HDL Ratio 2.5 L 3.0-3.6 06/18/2017 5:20am 06/18/2017 7: 00am Creatine Kinase 49 IU/L 29-168 06/17/2017 8:45pm 06/17/2017 9:13pm Creatine Kinase MB 2.20 ng/mL 0-5.0 06/17/2017 8:45pm 06/17/2017 9: 35pm Troponin I 0.096 ng/mL 0-0.300 06/17/2017 8:45pm 06/17/2017 9:35pm Activated Clotting Time 95 sec 06/18/2017 5:02am 06/18/2017 10:21am Line pull <170 sec or baseline Peripheral and Neuroradiology <400 sec Angioplasty 220 sec [place] [address] Patient Name: SILVERIO POLANCO MR # :[id number] : 1935 Age/Sex: 81/F Admit Physician: PARDEEP GUZMAN MD Admit Date: 06/17/17 Location/Room/Bed: [facility] [address] Discharge Date: Report: Discharge Summary FINAL DIAGNOSES 1. ST-elevation myocardial infarction. 2. Status post right coronary artery drug-eluting stent placement. 3. Systolic congestive heart failure. Ejection fraction 35%, compensated. 4. Peripheral vascular disease. 5. Diabetes. 6. Chronic obstructive pulmonary disease. 7. History of breast cancer. 8. History of lung cancer. 9. Previous esophageal dilation. 10. Dyslipidemia. CONSULTANTS: Dr. Webber, cardiology. PROCEDURES/STUDIES PERFORMED: Left heart catheterization. PRIMARY CARE DOCTOR: Dr. Ubaldo Foley. HOSPITAL COURSE: The patient was admitted with ST-elevation WA. The patient was emergently taken to the agriculture laboratory technician by Dr. Webber. A drug-eluting stent was placed in the right coronary artery. Briefly, the patient was on dopamine drip for transient cardiogenic shock. Her EF is 35%. I have informed the family potentially in a month or 2 her EF may bounce back some after her acute WA. At the time of discharge, her blood pressure is much better. I will send her out on very low dose Coreg and lisinopril. The patient is to continue aspirin and Plavix and statin. I have also informed the patient how important it is to be on both aspirin and Plavix for 1 year. As far as her peripheral vascular disease, I had discussed this with Dr. Webber. She needs to continue her outpatient followup with her [facility] specialist. The patient was seen and examined today. It took 33 minutes total to discharge this patient. I have updated her PCP as well of this hospitalization. PARDEEP GUZMAN M.D. Job#: [id number] RI cc: UBALDO FOLEY MD Dictated By: PARDEEP GUZMAN MD Transcribed By: EMILY on 06/20/17 <Electronically signed by PARDEEP GUZMAN MD>06/20/17 0914 Procedures No procedure information available. Encounters Encounter Location Arrival/Admit Date Discharge/Depart Date Attending Provider Discharged Inpatient [facility] 06/17/17 11:45pm 9:40am PARDEEP GUZMAN MD
[2017-07-01] MEDS ORDERED: MORPHINE SULFATE 2 MG/ML SYR IV STA (18:00)
[2017-07-01] MEDS ORDERED: METOPROLOL TARTRATE INJ 1 MG/ML VIAL IV SCH (18:00)
[2017-07-01] MEDS ORDERED: SODIUM CHLORIDE 0.9% 1000ML 1,000 ML IV STA (18:00)
[2017-07-01] MEDS ORDERED: ASPIRIN 81 MG CHEW TAB ONE (18:05)
[2017-07-01] MEDS ORDERED: HEPARIN SOD/SOD CHLORIDE 2,000 ML ONE (18:27)
[2017-07-01] MEDS ORDERED: IOPAMIDOL 370 MG/ML 200 ML INFUS..BTL INJ ONE (18:27)
[2017-07-01] MEDS ORDERED: LIDOCAINE HCL 2% LOCAL 20 ML VIAL ONE (18:27)
[2017-07-01] MEDS ORDERED: MIDAZOLAM HCL 2 MG/2 ML VIAL ONE ×2 (18:29→18:50)
[2017-07-01] MEDS ORDERED: HEPARIN SOD (PORCINE) 1000 UNIT/ML 30ML ONE (18:29)
[2017-07-01] MEDS ORDERED: NITROGLYCERIN/D5W 200 MCG/ML 250 ML ONE (18:29)
[2017-07-01] MEDS ORDERED: FENTANYL CITRATE/PF 100MCG/2 ML INJ ONE (18:29)
[2017-07-01] MEDS ORDERED: SODIUM CHLORIDE 0.9% 1000ML 1,000 ML ONE (18:29)
[2017-07-01] MEDS ORDERED: ONDANSETRON HCL INJ 2 MG/ML VIAL IV ONE (18:30)
[2017-07-01] MEDS ORDERED: ASPIRIN 81 MG CHEW TAB PO ONE (18:30)
[2017-07-01 18:43] LABS: BASOPHILS % 0.5 % (0.0-1.0); EOSINOPHILS # (AUTO) 0.1 (0.0-0.4); EOSINOPHILS % 2.3 % (0.0-6.0); LYMPHOCYTES # (AUTO) 0.9 (1.0-3.2); LYMPHOCYTES % 23.6 % (18.0-39.1); MEAN CORPUSCULAR HEMOGLOBIN 30.3 pg (28-32); MEAN CORPUSCULAR HGB CONC 33.6 g/dL (31-35); MEAN CORPUSCULAR VOLUME 90.2 fL (81-99); MONOCYTES # (AUTO) 0.3 (0.2-0.8); MONOCYTES % 8.1 % (4.4-11.3); NEUTROPHILS # (AUTO) 2.5 (2.1-6.9); NEUTROPHILS % 64.7 % (38.7-80.0); PLATELET COUNT 206 x10e3/uL (140-360); RED BLOOD COUNT 2.44 x10e6/uL (3.6-5.1); RED CELL DISTRIBUTION WIDTH 14.6 % (11.7-14.4)
[2017-07-01 18:50] LABS: INR 1.82; PROTHROMBIN TIME 19.8 seconds (11.9-14.5)
[2017-07-01 18:51] LABS: PARTIAL THROMBOPLASTIN TIME 31.4 seconds (23.8-35.5)
[2017-07-01] MEDS ORDERED: SODIUM CHLORIDE 0.9% 50ML 0 ML ONE (18:51)
[2017-07-01] MEDS ORDERED: BIVALIRUDIN 250 MG/VIAL IV ONE (18:51)
[2017-07-01 18:53] LABS: HEMOGLOBIN 7.4 g/dL (12.0-16.0)
[2017-07-01] MEDS ORDERED: EPTIFIBATIDE 100 ML ONE (18:57)
[2017-07-01] MEDS ORDERED: EPTIFIBATIDE 20 ML ONE (18:57)
[2017-07-01] MEDS ORDERED: ATROPINE SULFATE 0.1 MG/ML 10ML SYR ONE ×2 (18:57→19:05)
[2017-07-01] MEDS ORDERED: SODIUM CHLORIDE FLUSH 10 ML SYR INJ PRN (19:00)
[2017-07-01] MEDS: FAMOTIDINE 20 MG TAB PO SCH (19:00)
[2017-07-01] MEDS ORDERED: NITROGLYCERIN 0.4 MG SUBL SL PRN (19:00)
[2017-07-01] MEDS ORDERED: HEPARIN 25,000 UNIT/D5W 250ML 250 ML IV SCH ×2 (20:00→22:30)
[2017-07-01] MEDS ORDERED: HYDRALAZINE HCL 20 MG/ML VIAL IV PRN (20:00)
[2017-07-01] MEDS ORDERED: HEPARIN 25,000U/0.45% NS 250ML 250 ML ONE (21:43)
[2017-07-01] MEDS: ONDANSETRON HCL INJ 2 MG/ML VIAL IV PRN (21:47)
[2017-07-01 22:05] LABS: ALANINE AMINOTRANSFERASE 7 IU/L (0-55); ALBUMIN 2.8 g/dL (3.5-5.0); ALKALINE PHOSPHATASE 61 IU/L (40-150); BLOOD UREA NITROGEN 13 mg/dL (7-26); BUN/CREATININE RATIO 17 (6-25); CALCIUM 7.6 mg/dL (8.4-10.2); CARBON DIOXIDE 24 mmol/L (22-29); CHLORIDE 108 mmol/L (98-107); CREATINE KINASE 156 IU/L (29-168); CREATININE, SERUM 0.75 mg/dL (0.57-1.11); EST GLOMERULAR FILTRATION RATE > 60 ML/MIN (60-); GLUCOSE 179 mg/dL (74-118); SODIUM 140 mmol/L (136-145)
[2017-07-01 22:36] LABS: BASOPHILS % 0.4 % (0.0-1.0); EOSINOPHILS # (AUTO) 0.1 (0.0-0.4); EOSINOPHILS % 0.8 % (0.0-6.0); HEMATOCRIT 35.8 % (34.2-44.1); HEMOGLOBIN 11.8 g/dL (12.0-16.0); LYMPHOCYTES # (AUTO) 1.2 (1.0-3.2); LYMPHOCYTES % 17.1 % (18.0-39.1); MEAN CORPUSCULAR HEMOGLOBIN 29.4 pg (28-32); MEAN CORPUSCULAR VOLUME 89.1 fL (81-99); MONOCYTES # (AUTO) 0.3 (0.2-0.8); MONOCYTES % 4.2 % (4.4-11.3); NEUTROPHILS # (AUTO) 5.4 (2.1-6.9); NEUTROPHILS % 76.5 % (38.7-80.0); PLATELET COUNT 349 x10e3/uL (140-360); RED BLOOD COUNT 4.02 x10e6/uL (3.6-5.1); RED CELL DISTRIBUTION WIDTH 14.6 % (11.7-14.4)
[2017-07-01] MEDS ORDERED: POTASSIUM CHLORIDE 20MEQ/100ML 100 ML ONE (22:42)
[2017-07-01] MEDS ORDERED: POTASSIUM CHLORIDE 20MEQ/100ML 200 ML IV ONE (23:00)
[2017-07-01] MEDS ORDERED: SODIUM CHLORIDE 0.9% 250ML 250 ML ONE (23:28)
--- NOTE | 2017-07-01 23:44 | Consultation ---
DATE OF CONSULTATION: July 01, 2017 REASON FOR CONSULTATION: Myocardial infarction. HISTORY: Ms. Polanco is 81 years old. She was recently seen for ST-elevation myocardial infarction. She underwent angiography by Dr. Webber. She had an occluded distal right coronary artery for which she had a single stent placed. The procedure was complicated, but successful. She has been compliant with dual-antiplatelet therapy; however, comes in with substernal chest pain for the last several hours. EKG showed ST-elevation. I was called to assess her at the bedside. PAST MEDICAL HISTORY: 1. Ischemic cardiomyopathy with last ejection fraction 35%. 2. Peripheral arterial disease. 3. History of breast cancer, history of lung cancer. SOCIAL HISTORY: Patient does not smoke or drink. No family is present. DRUG ALLERGIES: INCLUDES PENICILLIN, TRAMADOL, AND BRIMONIDINE (ALPHAGAN). REVIEW OF SYSTEMS: Negative except as dictated in the history of present illness. PHYSICAL EXAMINATION: VITAL SIGNS: Afebrile, heart rate is 83, blood pressure 206/90, O2 sat is 95%. CARDIOVASCULAR: Regular rhythm. S3 gallop. Systolic murmur. LUNGS: Decreased breath sounds bilaterally. ABDOMEN: Distended. EXTREMITIES: 1+ edema. Pedal pulses are absent. LABS: Pending. EKG showed inferior ST-elevation. ASSESSMENT: Acute inferior ST-elevation myocardial infarction. RECOMMENDATION: Emergency coronary angiography intervention is needed. The risks, benefits, and alternatives of this procedure were discussed with the patient. She is agreeable for the same. Further recommendations based on the outcome of angiography. Overall, previously the procedure was complicated, and the added risk was also mentioned to the patient. Job#: [id number]
[2017-07-02] VITALS (59 sets, daily range): BP systolic 75–148; BP diastolic 50–92
[2017-07-02] MEDS ORDERED: AZOR 10-40 MG1 EACH PO (00:29)
[2017-07-02] MEDS ORDERED: OYSTER SHELL C1 EACH PO (00:31)
[2017-07-02] MEDS ORDERED: CILOSTAZOL100 MG PO (00:32)
[2017-07-02] MEDS ORDERED: MECLIZINE HCL12.5 MG PO (00:35)
[2017-07-02] MEDS ORDERED: MULTIVITAMINS1 EAC6 PEG (00:35)
[2017-07-02] MEDS ORDERED: GABAPENTIN100 MG PO (00:35)
--- NOTE | 2017-07-02 00:50 | History and Physical ---
DATE OF ENCOUNTER: July 01, 2017 Patient is a [facility] patient. HOSPITAL PHYSICIAN: Dr. Khan This is in coverage for Dr. Khan. Ms. Polanco is a pleasant 81-year-old female with shortness of breath. Patient explained the symptoms could be contributing with the chest tightness. Patient is having some associated shortness of breath. Patient's saturation was 98% on room air oxygen. EKG in triage, however, showed ST elevation. STEMI protocol was immediately implemented. Patient was emergently taken to catheterization lab for procedure. Blood pressure is 206/90 at presentation. It was noted that patient had a June 15, 2017 left heart catheterization with balloon angioplasty to RCA and stent placement in the RCA after coming in for ST elevation ND. So far, in this cardiac catheterization procedure, it was noted that patient has an occluded RCA stent as the cause of the ST elevation. Multiple attempts to balloon are difficult, although positions being noted with wire entry and mildly diminished ST changes. Patient's with vital signs somewhat improved with 136 blood pressure at this time. Pacemaker placed for the procedure anticipating possibility of arrhythmias due to reperfusion. Consideration for hospital admission is there and patient will be admitted. PAST MEDICAL HISTORY: Hypertension, peripheral artery disease, coronary artery disease, status post June 2017 PCI with stent of RCA, reported COPD, diabetes, history of breast cancer, history of lung cancer, previous esophageal dilatation, dyslipidemia, systolic congestive heart failure, ejection fraction 35%. MEDICATIONS: Medication list reported per record; however, inconsistent report and unclear what medicines the patient is actually taking at home. ALLERGIES: ALPHAGAN, PENICILLIN, BRIMONIDINE, TRAMADOL. SOCIAL HISTORY: No alcohol, no drugs. Quit smoking 12 years ago. FAMILY HISTORY: Noncontributory. REVIEW OF SYSTEMS: Limited as patient being prepared for emergency procedure. EXAM VITALS: Temperature 98, heart rate 85, respiratory rate 18, blood pressure came down to 135/83, pulse oximeter 100%. GENERAL: In bed prep. HEENT: Normocephalic, atraumatic. NECK: Supple. Throat midline. LUNGS: Limited with prep. CARDIAC: Limited with prep. ABDOMEN: Limited with prep. NEUROLOGIC: Patient awake, alert. LAB: 3.8 white count, 7 hemoglobin, 22 hematocrit, 206,000 platelets. INR 1.82. Chemistry still pending. IMPRESSIONS AND PLAN 1. Acute ST elevation myocardial infarction. 2. Right coronary artery in-stent thrombosis. 3. Hyperlipidemia. 4. Diabetes. 5. Hypertension. 6. Reported chronic obstructive pulmonary disease. 7. Peripheral vascular disease. 8. History of lung cancer and right lobectomy. 9. Breast cancer history. 10. Dyslipidemia. 11. Esophageal dilatation history. Continue followup with attempts to balloon the artery. Cardiac medications are indicated. Will probably still await the chemistry and the creatinine. Of note, the hemoglobin is significantly decreased from discharge. GI consultation given the recent blood thinners that she has been on. Will follow along closely. Patient remains in critical condition. Discussed with staff at length. Thank you very much, Dr. Khan, for allowing me to chance help participate in the care of Ms Bhavik Polanco. Will coordinate care with [facility] physicians as well as time needed. Greater than 30 minutes of critical care, multiple coordination of care today\E\. Job#: [id number] CQ
--- NOTE | 2017-07-02 01:26 | Operative Report ---
DATE OF PROCEDURE: July 01, 2017 INDICATIONS: Inferior ST elevation myocardial infarction. PROCEDURES PERFORMED 1. Left heart catheterization, selective coronary angiography. 2. Percutaneous transluminal coronary angioplasty and drug-eluting stent placement to the proximal and distal right coronary artery with myocardial infarction. 3. Placement of central venous catheter for placement of temporary transvenous pacemaker. COMPLICATIONS: None. RECOMMENDATIONS: Aggressive 3-agent antiplatelet, anticoagulant therapy including aspirin, Xarelto, and clopidogrel. Access obtained in the right femoral artery. A 6-Indonesian sheath was placed. Access obtained in the right femoral vein. A 7-Indonesian sheath was placed. Temporary transvenous pacemaker, central line was inserted, and a right ventricular capture and pacing was initiated. The right coronary artery was cannulated using a hockey stick side-hole 6-Indonesian guiding catheter. There was complete occlusion of the previously placed stent due to thrombosis in the distal right coronary artery. Proximal right coronary artery had 70% stenosis. Multiple wires attempted to cross the lesion; however, a wire with the help of a guide liner was used to negotiate through. Post dilatation of the stent was performed with a 2.5-mm balloon with large amounts of difficulty. ALLIE-3 flow was established; however, some minimal residual thrombus remained within the stent. There was inability to pass the thrombectomy catheter. The proximal right coronary artery lesion was stented using a 3.0 x 18-mm Promus stent with excellent end result, ALLIE-3 flow in all vessels. Minimal thrombus remained within the distal right coronary artery stent. The patient was maintained on intravenous heparin and Integrilin, as well as oral Effient during the procedure. She was transferred to the ICU in stable condition. Sheath was secured in place. Hemodynamically stable. Job#: [id number] CQ
[2017-07-02] MEDS: EPTIFIBATIDE 100 ML IV SCH ×2 (02:38→10:16)
[2017-07-02 04:45] LABS: BASOPHILS % 0.5 % (0.0-1.0); EOSINOPHILS % 0.5 % (0.0-6.0); HEMATOCRIT 33.3 % (34.2-44.1); LYMPHOCYTES # (AUTO) 1.5 (1.0-3.2); LYMPHOCYTES % 18.3 % (18.0-39.1); MEAN CORPUSCULAR HEMOGLOBIN 29.3 pg (28-32); MEAN CORPUSCULAR VOLUME 88.8 fL (81-99); MONOCYTES # (AUTO) 0.7 (0.2-0.8); MONOCYTES % 8.3 % (4.4-11.3); NEUTROPHILS # (AUTO) 5.8 (2.1-6.9); NEUTROPHILS % 71.4 % (38.7-80.0); PLATELET COUNT 328 x10e3/uL (140-360); RED BLOOD COUNT 3.75 x10e6/uL (3.6-5.1); RED CELL DISTRIBUTION WIDTH 14.7 % (11.7-14.4)
[2017-07-02 04:54] LABS: INR 1.22; PROTHROMBIN TIME 14.5 seconds (11.9-14.5)
[2017-07-02 04:55] LABS: PARTIAL THROMBOPLASTIN TIME 62.1 seconds (23.8-35.5)
[2017-07-02 05:03] LABS: ALANINE AMINOTRANSFERASE 8 IU/L (0-55); ALBUMIN 2.6 g/dL (3.5-5.0); ALBUMIN/GLOBULIN RATIO 1.1 (0.8-2.0); ALKALINE PHOSPHATASE 53 IU/L (40-150); ANION GAP 8.7 mmol/L (8-16); BLOOD UREA NITROGEN 11 mg/dL (7-26); BUN/CREATININE RATIO 15 (6-25); CALCIUM 7.3 mg/dL (8.4-10.2); CARBON DIOXIDE 26 mmol/L (22-29); CHLORIDE 110 mmol/L (98-107); CREATININE, SERUM 0.72 mg/dL (0.57-1.11); EST GLOMERULAR FILTRATION RATE > 60 ML/MIN (60-); GLUCOSE 170 mg/dL (74-118); POTASSIUM 3.7 mmol/L (3.5-5.1); SODIUM 141 mmol/L (136-145)
[2017-07-02 05:28] LABS: CREATINE KINASE MB 24.8 ng/mL (0-5.0)
[2017-07-02] MEDS: FAMOTIDINE 20 MG TAB PO SCH ×2 (07:31→19:30)
[2017-07-02] MEDS: CLOPIDOGREL BISULFATE 75 MG TAB PO SCH (08:20)
[2017-07-02] MEDS: ASPIRIN 81 MG ENTERIC COATED PO SCH (08:20)
[2017-07-02] MEDS: MORPHINE SULFATE 2 MG/ML SYR IV PRN ×3 (09:19→22:38)
[2017-07-02] MEDS ORDERED: ATROPINE SULFATE 0.1 MG/ML 10ML SYR ONE (09:29)
[2017-07-02] MEDS ORDERED: EPTIFIBATIDE 100 ML ONE ×2 (10:12→18:28)
--- NOTE | 2017-07-02 12:25 | Progress Note ---
DATE: CARDIOLOGY PROGRESS NOTE SUBJECTIVE: Patient is without any complaints. She states that her chest pain and shortness of breath has resolved. She is status post PCI last night. CARDIOVASCULAR MEDICATIONS 1. Eptifibatide IV drip. 2. Plavix 75 mg. 3. Aspirin 81 mg. 4. Metoprolol 5 mg q. 5 hours p.r.n. IV. 5. Hydralazine 10 mg q. 4 hours p.r.n. IV. OBJECTIVE VITAL SIGNS: Temperature 98.7, pulse 73, respiratory rate 18, blood pressure 96/52, and oxygen saturation 99% on 2 liters nasal cannula. GENERAL: Alert and oriented x3. Resting comfortably in bed. Does not appear to be in any acute distress. Daughter is at the bedside. LUNGS: Clear to auscultation throughout. No wheezing. No rhonchi or crackles. CARDIOVASCULAR: Regular rate and rhythm. Sinus rhythm with PACs on telemetry. ABDOMEN: Rounded, soft, and nontender. EXTREMITIES: Lower extremities, diminished pedal pulses right lower extremity. Left lower extremity 2+ pedal pulses. Trace edema bilaterally. LAB: WBC 8.18, hemoglobin 11.0, hematocrit 33.3, and platelets 328. Sodium 141, potassium 3.7, BUN 11, creatinine 0.72, and calcium 7.3. AST 36, ALT 8. Creatinine kinase 324, CK-MB 24.80, and troponin 7.466. ASSESSMENT 1. Acute inferior ST-elevation myocardial infarction, status post drug-eluting stent percutaneous coronary intervention to the right coronary artery with right coronary artery thrombus noted. 2. Coronary artery disease. 3. Venous insufficiency. 4. Dyslipidemia. RECOMMENDATIONS: Continue the above-listed cardiac medications. Discontinue Integrilin tomorrow morning. Initiate Xarelto 50 mg. Continue aspirin and Plavix. Maintain on telemetry. Maintain in ICU. Monitor closely. Repeat CBC this evening. We will continue to follow. Thank you for this consultation. Dictated By: Valeria Mkceon NP Job#: [id number] HANS
[2017-07-02] MEDS ORDERED: ACETAMINOPHEN 325 MG TAB PO PRN (12:45)
[2017-07-02] MEDS ORDERED: ACETAMINOPHEN 325 MG TAB ONE (12:46)
[2017-07-02 13:08] LABS: CREATINE KINASE MB 16.8 ng/mL (0-5.0)
[2017-07-02] MEDS ORDERED: ACETAMINOPHEN/CODEINE 300MG - 30MG TAB PO PRN (13:30)
[2017-07-02] MEDS ORDERED: POTASSIUM CHLORIDE 20 MEQ TAB CR PO ONE ×2 (14:00→16:20)
--- NOTE | 2017-07-02 14:15 | Progress Note ---
DATE: July 02, 2017 INTERNAL MEDICINE PROGRESS NOTE COVERING FOR: Dr. Khan. SUBJECTIVE: Ms. Polanco was seen and examined at bedside. She is in the ICU at this time. Pacemaker still in place at this time. Entry via right femoral sheath noted and patient remains on bedrest. She remains on the Integrilin infusion. Family was updated as multiple family members are at bedside right now. Patient with small amounts of back pain, probably due to lying in bed a lot. She is not eating very much yet; however, she is talking with good neurologic exam. REVIEW OF SYSTEMS: No double vision. No headaches. OBJECTIVE: VITAL SIGNS: Afebrile. Vital signs noted per electronic record. GENERAL: No acute distress, alert, calm, and pleasant in bed. HEENT: Normocephalic, atraumatic. NECK: Supple. Throat midline. LUNGS: Bilateral air entry, clear. CARDIOVASCULAR: S1 and S2. Very small flow murmur. No gallops. ABDOMEN: Soft, nontender. EXTREMITIES: No clubbing, no cyanosis, no edema. INTEGUMENT: No rash, no purpura. LABS: BUN 11, creatinine 0.7, potassium 3.7. White count 8, hematocrit 33, platelets 328. IMPRESSION AND PLAN 1. Status post acute inferior myocardial infarction. 2. Complicated heart catheterization with reestablishment of coronary perfusion in right coronary artery via percutaneous intervention. 3. Hypertension. 4. Peripheral artery disease. 5. Diabetes. 6. History of breast cancer. 7. History of lung cancer. 8. Dyslipidemia. 9. Systolic congestive heart failure. 10. Chronic obstructive pulmonary disease. Per cardiology, pacer wire to be discontinued. Furthermore, patient will have the sheath left in place. Continue bedrest and maintain leg straightened for now. Continue Integrilin. They wish to start Xarelto and get it loaded and Integrilin likely going to end later today. We will follow along closely. Follow up for symptoms and serial EKG. Chest x-ray screening to be done tomorrow. Furthermore, repeat blood work in the morning. Job#: [id number] VAS
[2017-07-02] MEDS ORDERED: POTASSIUM CHLORIDE 20MEQ/100ML 200 ML IV ONE (14:30)
[2017-07-02] MEDS ORDERED: ONDANSETRON HCL INJ 2 MG/ML VIAL IV PRN (17:00)
[2017-07-02] MEDS: ATORVASTATIN 10 MG TAB PO SCH (19:31)
[2017-07-02] MEDS: ONDANSETRON HCL INJ 2 MG/ML VIAL IV PRN (19:31)
[2017-07-02 19:33] LABS: BASOPHILS % 0.4 % (0.0-1.0); EOSINOPHILS # (AUTO) 0.2 (0.0-0.4); HEMATOCRIT 29.4 % (34.2-44.1); HEMOGLOBIN 9.8 g/dL (12.0-16.0); LYMPHOCYTES # (AUTO) 1.4 (1.0-3.2); LYMPHOCYTES % 16.1 % (18.0-39.1); MEAN CORPUSCULAR HEMOGLOBIN 29.8 pg (28-32); MEAN CORPUSCULAR HGB CONC 33.3 g/dL (31-35); MEAN CORPUSCULAR VOLUME 89.4 fL (81-99); MONOCYTES # (AUTO) 0.7 (0.2-0.8); NEUTROPHILS # (AUTO) 6.1 (2.1-6.9); NEUTROPHILS % 72.9 % (38.7-80.0); PLATELET COUNT 284 x10e3/uL (140-360); RED BLOOD COUNT 3.29 x10e6/uL (3.6-5.1); RED CELL DISTRIBUTION WIDTH 14.9 % (11.7-14.4)
[2017-07-03] VITALS (43 sets, daily range): BP systolic 96–118; BP diastolic 44–70
[2017-07-03] MEDS: ONDANSETRON HCL INJ 2 MG/ML VIAL IV PRN ×2 (01:32→13:12)
[2017-07-03] MEDS: MORPHINE SULFATE 2 MG/ML SYR IV PRN ×3 (01:32→21:49)
[2017-07-03] MEDS ORDERED: EPTIFIBATIDE 100 ML ONE ×2 (01:52→11:51)
[2017-07-03] MEDS: EPTIFIBATIDE 100 ML IV SCH ×2 (01:55→12:30)
[2017-07-03 05:46] LABS: BASOPHILS % 0.5 % (0.0-1.0); EOSINOPHILS # (AUTO) 0.2 (0.0-0.4); EOSINOPHILS % 2.7 % (0.0-6.0); HEMATOCRIT 28.2 % (34.2-44.1); HEMOGLOBIN 9.1 g/dL (12.0-16.0); LYMPHOCYTES # (AUTO) 1.1 (1.0-3.2); LYMPHOCYTES % 13.6 % (18.0-39.1); MEAN CORPUSCULAR HEMOGLOBIN 29.5 pg (28-32); MEAN CORPUSCULAR HGB CONC 32.3 g/dL (31-35); MEAN CORPUSCULAR VOLUME 91.6 fL (81-99); MONOCYTES # (AUTO) 0.6 (0.2-0.8); MONOCYTES % 7.1 % (4.4-11.3); NEUTROPHILS # (AUTO) 6.2 (2.1-6.9); NEUTROPHILS % 75.4 % (38.7-80.0); PLATELET COUNT 283 x10e3/uL (140-360); RED BLOOD COUNT 3.08 x10e6/uL (3.6-5.1)
[2017-07-03 06:08] LABS: INR 1.2; PROTHROMBIN TIME 14.3 seconds (11.9-14.5)
[2017-07-03 06:09] LABS: PARTIAL THROMBOPLASTIN TIME 29.3 seconds (23.8-35.5)
[2017-07-03 06:16] LABS: ALANINE AMINOTRANSFERASE 6 IU/L (0-55); ALBUMIN 2.4 g/dL (3.5-5.0); ALKALINE PHOSPHATASE 44 IU/L (40-150); ANION GAP 9.3 mmol/L (8-16); BLOOD UREA NITROGEN 7 mg/dL (7-26); BUN/CREATININE RATIO 11 (6-25); CALCIUM 7.4 mg/dL (8.4-10.2); CARBON DIOXIDE 27 mmol/L (22-29); CHLORIDE 108 mmol/L (98-107); CREATININE, SERUM 0.62 mg/dL (0.57-1.11); EST GLOMERULAR FILTRATION RATE > 60 ML/MIN (60-); GLUCOSE 156 mg/dL (74-118); MAGNESIUM 1.3 MG/DL (1.3-2.1); POTASSIUM 3.3 mmol/L (3.5-5.1); SODIUM 141 mmol/L (136-145)
--- NOTE | 2017-07-03 06:46 | Diagnostic Imaging Report ---
EXAM: XR CHEST 1 VIEW DATE: 07/03/2017 5:00 AM INDICATION: Chest pain COMPARISON: 06/17/2017 FINDINGS: Lines and Tubes: None Heart and Mediastinum: There is mild prominence of the cardiac silhouette. Aortic vascular calcifications are present. Lungs and Pleura: Nodular right suprahilar fullness. Patchy opacity right lung base with obscuration right costophrenic sulcus. Bones and Soft Tissues: No acute findings. IMPRESSION: 1. Patchy opacity right lung base could represent atelectasis/scarring and/or pneumonia. Blunting of costophrenic sulcus could represent small effusion or pleural-parenchymal scarring. 2. Nodular right suprahilar fullness. CT chest with contrast recommended. Signed by: Dr. Davie Gee MD on 07/03/2017 6:41 AM
[2017-07-03] MEDS: FAMOTIDINE 20 MG TAB PO SCH ×2 (08:02→18:08)
[2017-07-03] MEDS: CLOPIDOGREL BISULFATE 75 MG TAB PO SCH (08:02)
[2017-07-03] MEDS: ASPIRIN 81 MG ENTERIC COATED PO SCH (08:02)
[2017-07-03] MEDS: METOPROLOL SUCCINATE 25 MG TAB XL PO SCH (08:03)
[2017-07-03] MEDS ORDERED: POTASSIUM CHLORIDE 20 MEQ TAB CR PO STA (11:47)
[2017-07-03] MEDS ORDERED: POTASSIUM CHLORIDE 20MEQ/15ML UDC PO ONE (12:00)
[2017-07-03] MEDS: CEFEPIME HCL 1 GM VIAL IV SCH (13:05)
--- NOTE | 2017-07-03 13:15 | Progress Note ---
DATE: July 03, 2017 PULMONARY MEDICINE PROGRESS NOTE SUBJECTIVE: Mrs. Polanco was seen and examined at bedside. She did have some hemoptysis on a few events. These globules of hemoptysis are dark red. She is having intermittent cough at baseline. There is report she is mildly more dyspneic today although it is not excessive. REVIEW OF SYSTEMS: No headaches, no rash. OBJECTIVE VITAL SIGNS: Afebrile. Vital signs noted per electronic record. GENERALLY: No acute distress, alert and calm. HEENT: Normocephalic, atraumatic. NECK: Supple. Throat midline. LUNGS: Bilateral air entry, rare rhonchi. CARDIOVASCULAR: S1 and S2. No murmurs, rubs or gallops. ABDOMINAL: Soft, nontender. EXTREMITIES: No clubbing, no cyanosis. There is no edema. INTEGUMENT: No rash. No purpura. LABS: Labs reviewed per electronic record. H\T\H stable. IMPRESSION AND PLAN 1. Hemoptysis. 2. History of lung cancer 2001. Status post curative lung resective surgery. 3. Abnormal chest radiography, possible subsegmental right lower lobe atelectasis versus other etiology. 4. Former smoker, quit 2001. 5. Admit for ST-elevation myocardial infarction, on multiple blood thinners right now. Hemoptysis noted. I asked nursing to quantify all hemoptysis. Blood thinners as needed per medical secretary. If the hemoptysis goes away, we will allow the patient to have just observation and outpatient followup. If the hemoptysis continues, then we will be forced to do inpatient workup expedited as the patient is expected to be on multiple blood thinners including anticoagulation at discharge. Will follow up closely. Of note, the patient is in cured state from this lung cancer as it was so many years ago, but the patient will still need observation for new process or for new bronchiectatic or other changes secondary to surgery or COPD. Job#: [id number] LILLIAN
[2017-07-03] MEDS ORDERED: RIVAROXABAN 15 MG TABLET PO ONE (18:00)
--- NOTE | 2017-07-03 18:45 | Progress Note ---
DATE: July 03, 2017 CARDIOLOGY PROGRESS NOTE SUBJECTIVE: The patient denies chest pain or shortness of breath. She continues to have a right groin venous sheath. OBJECTIVE VITAL SIGNS: Temperature 97.8 degrees, pulse 82, respiratory rate 18, blood pressure 96/51, oxygen saturation 98% on 2 liters nasal cannula. GENERAL: An elderly woman in no acute distress, awake and alert. LUNGS: Clear to auscultation bilaterally. No wheezes or crackles. CARDIOVASCULAR: Normal rate, regular rhythm. No murmurs. Normal S1 and S2. ABDOMEN: Soft and nontender. EXTREMITIES: No edema. Right groin without hematoma or bruit. Venous sheath is present. CARDIAC MEDICATIONS: 1. Eptifibatide infusion. 2. Metoprolol succinate 12.5 mg p.o. daily. 3. Plavix 75 mg p.o. daily. 4. Aspirin 81 mg p.o. daily. 5. Atorvastatin 10 mg p.o. nightly. 6. Xarelto 15 mg p.o. daily. LABORATORY DATA: WBC 8.22, hemoglobin 9.1, hematocrit 28.2, platelets 283,000, sodium 141, potassium 3.3, chloride 108, CO2 of 27, BUN 7, creatinine 0.62. TELEMETRY: Normal sinus rhythm. IMPRESSION 1. Acute inferior ST elevation myocardial infarction, status post drug-eluting stent to the RCA with right coronary artery thrombus noted. 2. Coronary artery disease. 3. Dyslipidemia. 4. Hypertension. 5. Peripheral arterial disease. 6. Diabetes. 7. Chronic obstructive pulmonary disease. 8. History of breast cancer. 9. History of lung cancer. 10. Chronic systolic heart failure. 11. Venous insufficiency. RECOMMENDATIONS: Continue current cardiac medications. We will start Xarelto 15 mg p.o. daily. Discontinue Integrilin. Continue dual antiplatelet therapy. Venous sheath can be removed. Monitor in ICU overnight. Thank you for this consult. We will continue to follow. Job#: [id number] GH MTDD
[2017-07-03] MEDS: ATORVASTATIN 10 MG TAB PO SCH (21:00)
[2017-07-04] VITALS (45 sets, daily range): BP systolic 83–130; BP diastolic 43–85
[2017-07-04] MEDS: CEFEPIME HCL 1 GM VIAL IV SCH ×2 (00:04→13:12)
[2017-07-04 06:16] LABS: BASOPHILS % 0.6 % (0.0-1.0); EOSINOPHILS # (AUTO) 0.3 (0.0-0.4); EOSINOPHILS % 3.4 % (0.0-6.0); HEMATOCRIT 26.9 % (34.2-44.1); HEMOGLOBIN 8.8 g/dL (12.0-16.0); LYMPHOCYTES # (AUTO) 1.2 (1.0-3.2); LYMPHOCYTES % 16.6 % (18.0-39.1); MEAN CORPUSCULAR HEMOGLOBIN 29.7 pg (28-32); MEAN CORPUSCULAR HGB CONC 32.7 g/dL (31-35); MEAN CORPUSCULAR VOLUME 90.9 fL (81-99); MONOCYTES # (AUTO) 0.6 (0.2-0.8); MONOCYTES % 8.6 % (4.4-11.3); NEUTROPHILS # (AUTO) 5.1 (2.1-6.9); NEUTROPHILS % 70.1 % (38.7-80.0); PLATELET COUNT 252 x10e3/uL (140-360); RED BLOOD COUNT 2.96 x10e6/uL (3.6-5.1); RED CELL DISTRIBUTION WIDTH 15.1 % (11.7-14.4)
--- NOTE | 2017-07-04 06:28 | Diagnostic Imaging Report ---
CHEST SINGLE (PORTABLE), 07/04/2017 5:29 AM Technique: CHEST SINGLE (PORTABLE) Comparison: 07/03/2017 Clinical history: Cough Findings: See Impression Impression: 1. Stable mildly enlarged cardiac silhouette and right hilar fullness with postsurgical change/surgical clips. 2. Stable volume loss in the right lung with atelectasis/scarring. Signed by: Dr Bernadine Nash MD on 07/04/2017 6:24 AM
[2017-07-04 06:42] LABS: ANION GAP 9.9 mmol/L (8-16); BLOOD UREA NITROGEN 11 mg/dL (7-26); BUN/CREATININE RATIO 18 (6-25); CALCIUM 7.6 mg/dL (8.4-10.2); CARBON DIOXIDE 28 mmol/L (22-29); CHLORIDE 108 mmol/L (98-107); CHOL/HDL RATIO 2.8 (3.0-3.6); CHOLESTEROL 87 MD/DL (0-199); CREATININE, SERUM 0.61 mg/dL (0.57-1.11); EST GLOMERULAR FILTRATION RATE > 60 ML/MIN (60-); GLUCOSE 139 mg/dL (74-118); HDL CHOLESTEROL 31 MG/DL (40-60); LDL CHOLESTEROL 41 MG/DL (60-130); MAGNESIUM 1.5 MG/DL (1.3-2.1); POTASSIUM 3.9 mmol/L (3.5-5.1); SODIUM 142 mmol/L (136-145); TRIGLYCERIDES 75 MG/DL (0-149)
[2017-07-04] MEDS: METOPROLOL SUCCINATE 25 MG TAB XL PO SCH (08:30)
[2017-07-04] MEDS: FAMOTIDINE 20 MG TAB PO SCH ×2 (08:30→19:00)
[2017-07-04] MEDS: CLOPIDOGREL BISULFATE 75 MG TAB PO SCH (08:30)
[2017-07-04] MEDS: ASPIRIN 81 MG ENTERIC COATED PO SCH (08:30)
[2017-07-04] MEDS ORDERED: RIVAROXABAN 15 MG TABLET PO SCH (09:00)
[2017-07-04] MEDS ORDERED: LACTULOSE SYRUP 20 GM/30 ML UDC PO ONE (10:30)
--- NOTE | 2017-07-04 12:25 | Progress Note ---
DATE: July 04, 2017 PULMONARY MEDICINE PROGRESS NOTE SUBJECTIVE: Ms. Polanco was seen and examined at bedside. No new chest pain issues. She is sitting up. Sarah in place. She is starting to eat better. The patient on evaluation of her hemoptysis actually filled the bottom of the sputum cup with hemoptysis contents about 1 cm up. REVIEW OF SYSTEMS: No headaches, no rash. OBJECTIVE VITAL SIGNS: Afebrile. Vital signs noted per electronic record. GENERAL: No acute distress, alert and calm. HEENT: Normocephalic, atraumatic. NECK: Supple. Throat midline. LUNGS: Bilateral air entry, a few rhonchi. CARDIOVASCULAR: S1 and S2. No murmurs, rubs or gallops. ABDOMINAL: Soft, nontender. EXTREMITIES: No clubbing, no cyanosis. There is no edema. INTEGUMENT: No rash. No purpura. LABS: Creatinine 0.6, hematocrit 27. IMPRESSION AND PLAN 1. Admit for ST-elevation myocardial infarction. 2. Complicating hemoptysis. 3. History of lung cancer. 4. Postoperative 2001 lung resective surgery. 5. Former smoker, quit 2001. Allow a little bit more washout of contrast from the cardiac catheterization. We plan for CT chest with contrast tomorrow. The day after tentative bronchoscopy, give her another day to heal from this heart attack. However, there are strong plans to put the patient on more powerful blood thinners, so the consideration for early bronchoscopy seems reasonable. However, intervention will be limited at this time because of the blood thinners, but future planning can be made for emergencies if needed. Job#: [id number]
[2017-07-04] MEDS ORDERED: SODIUM CHLORIDE 0.9% 250ML 250 ML IV ONE (13:00)
--- NOTE | 2017-07-04 14:13 | Progress Note ---
DATE: July 04, 2017 CARDIOLOGY PROGRESS NOTE SUBJECTIVE: The patient denies chest pain or shortness of breath. She indicates she has been coughing up some blood. OBJECTIVE VITALS: Temperature 98.2 degrees, pulse 85, respiratory rate 18, blood pressure 104/52, and oxygen saturation is 98% on 2 L nasal cannula. GENERAL: Awake, alert and in no acute distress. Sitting up in chair without complaints. LUNGS: Clear to auscultation bilaterally. No wheezes or crackles. CARDIOVASCULAR: Normal rate. Regular rhythm. No murmur. Normal S1 and S2. ABDOMEN: Soft and nontender. EXTREMITIES: No edema. Right groin without hematoma or bruit. CARDIAC MEDICATIONS 1. Rivaroxaban 15 mg p.o. daily. 2. Metoprolol succinate 12.5 mg p.o. daily. 3. Plavix 75 mg p.o. daily. 4. Aspirin 81 mg p.o. q.a.m. 5. Atorvastatin 10 mg p.o. at bedtime. LABS: WBC 7.25, hemoglobin 8.8, hematocrit 26.9, and platelets 252,000. Sodium 142, potassium 3.9, chloride 109, CO2 28, BUN 11, creatinine 0.61. Telemetry is normal sinus rhythm. IMPRESSION 1. Acute inferior ST-elevation myocardial infarction: Status post drug-eluting stent to the right coronary artery with right coronary artery thrombus noted. 2. Coronary artery disease. 3. Dyslipidemia. 4. Hypertension. 5. Peripheral arterial disease. 6. Diabetes. 7. Chronic obstructive pulmonary disease. 8. History of breast cancer. 9. History of lung cancer. 10. Chronic systolic heart failure. 11. Venous insufficiency. RECOMMENDATIONS: Continue current cardiac medications. If the patient ambulates without symptoms, she may be transferred out of the ICU. ADDENDUM: Subsequently notified by the staff that the patient became hypotensive with large bowel movement that was suspicious for GI bleeding. Maintain the patient in the ICU status. Type and screen. Send stool occult blood. Will give gentle IV fluid bolus given hypotension. Job#: [id number] CB
[2017-07-04] MEDS ORDERED: PANTOPRAZOLE 40 MG 10ML VIAL IV STA (18:49)
[2017-07-04] MEDS: PANTOPRAZOL 40MG/SOD CHL 0.9% 50 ML IV SCH ×2 (19:31→23:07)
[2017-07-04] MEDS: ATORVASTATIN 10 MG TAB PO SCH (20:43)
[2017-07-04] MEDS: SUCRALFATE 1 GM/10 ML SUSP NG SCH (20:43)
[2017-07-05] VITALS (33 sets, daily range): BP systolic 94–154; BP diastolic 39–91
[2017-07-05] MEDS: CEFEPIME HCL 1 GM VIAL IV SCH ×2 (00:25→12:29)
[2017-07-05] MEDS: PANTOPRAZOL 40MG/SOD CHL 0.9% 50 ML IV SCH ×4 (04:43→22:54)
--- NOTE | 2017-07-05 05:43 | Diagnostic Imaging Report ---
CHEST SINGLE (PORTABLE), 07/05/2017 5:21 AM Technique: CHEST SINGLE (PORTABLE) Comparison: Previous day Clinical history: Cough Findings: See Impression Impression: 1. Stable mildly enlarged cardiac silhouette and right hilar fullness with postsurgical change/surgical clips. 2. Stable volume loss in the right lung with right basilar opacity, favor atelectasis/scarring. Signed by: Dr Bernadine Nash MD on 07/05/2017 5:40 AM
[2017-07-05 05:54] LABS: BASOPHILS % 0.7 % (0.0-1.0); EOSINOPHILS # (AUTO) 0.3 (0.0-0.4); EOSINOPHILS % 4.7 % (0.0-6.0); HEMATOCRIT 26.9 % (34.2-44.1); HEMOGLOBIN 8.6 g/dL (12.0-16.0); LYMPHOCYTES # (AUTO) 1.1 (1.0-3.2); MEAN CORPUSCULAR HEMOGLOBIN 29.4 pg (28-32); MEAN CORPUSCULAR VOLUME 91.8 fL (81-99); MONOCYTES # (AUTO) 0.6 (0.2-0.8); MONOCYTES % 10.1 % (4.4-11.3); NEUTROPHILS # (AUTO) 3.6 (2.1-6.9); NEUTROPHILS % 63.8 % (38.7-80.0); PLATELET COUNT 262 x10e3/uL (140-360); RED BLOOD COUNT 2.93 x10e6/uL (3.6-5.1); RED CELL DISTRIBUTION WIDTH 14.9 % (11.7-14.4)
[2017-07-05 06:12] LABS: ANION GAP 9.7 mmol/L (8-16); BLOOD UREA NITROGEN 11 mg/dL (7-26); BUN/CREATININE RATIO 18 (6-25); CARBON DIOXIDE 29 mmol/L (22-29); CHLORIDE 107 mmol/L (98-107); CREATININE, SERUM 0.62 mg/dL (0.57-1.11); EST GLOMERULAR FILTRATION RATE > 60 ML/MIN (60-); GLUCOSE 151 mg/dL (74-118); MAGNESIUM 1.6 MG/DL (1.3-2.1); POTASSIUM 3.7 mmol/L (3.5-5.1); SODIUM 142 mmol/L (136-145)
--- NOTE | 2017-07-05 06:48 | Diagnostic Imaging Report ---
EXAM: CT CHEST W DATE: 07/05/2017 7:00 AM INDICATION: \S\hemoptysis, hx lung cancer, admit for STEMI/blood thinners COMPARISON: 05/01/2011 TECHNIQUE: Multidetector CT scanning of the chest was performed. Coronal and sagittal multiplanar reformations were obtained. IV Contrast: 100 ml Isovue 370/300 FINDINGS: LUNGS AND PLEURA: Emphysema. Postsurgical changes status post right upper lobectomy with stable narrowing of the right middle lobe bronchus. There is a 1 cm irregular nodule abutting the fissure in the left upper lobe on image 29, new from prior. Bilateral lower lobe groundglass and nodular opacities are new. Interval increase in right middle lobe irregular nodule along the fissure measuring 1.8 cm, prior 0.6 cm. Stable right basilar and fissural scarring. Calcified bilateral granulomas. Small right and tiny left pleural effusions. HEART, MEDIASTINUM, VESSELS: Normal heart size without pericardial effusion. Stable calcified mediastinal nodes, likely related to prior granulomatous disease. No evidence of acute pulmonary artery embolism to the segmental level. Coronary artery, mitral annulus and aortic atherosclerotic changes. UPPER ABDOMEN: Unremarkable. MUSCULOSKELETAL: Multilevel degenerative changes and right thoracotomy defect. Right subacromial/bursal calcification. IMPRESSION: 1. No evidence of acute pulmonary artery embolism. 2. Bilateral groundglass and nodular lower lobe opacities most likely infectious. Recommend follow-up in 4-6 weeks after treatment to reassess. 3. New irregular left upper lobe nodule and increased right middle lobe nodule suspicious for neoplasm in the setting of emphysema and prior right upper lobectomy for lung cancer. Signed by: Dr Bernadine Nash MD on 07/05/2017 6:44 AM
[2017-07-05 06:59] LABS: FERRITIN 83.34 ng/mL (4.63-204.00)
[2017-07-05 08:34] LABS: FOLATE 6.5 ng/mL (7.0-15.4)
[2017-07-05] MEDS: SUCRALFATE 1 GM/10 ML SUSP NG SCH ×4 (08:47→20:40)
[2017-07-05] MEDS: ASPIRIN 81 MG ENTERIC COATED PO SCH (08:48)
[2017-07-05] MEDS: CLOPIDOGREL BISULFATE 75 MG TAB PO SCH (08:48)
[2017-07-05] MEDS ORDERED: SODIUM CHLORIDE 0.9% 50ML 50 ML ONE (10:18)
[2017-07-05] MEDS ORDERED: IOPAMIDOL 370 MG/ML 200 ML INFUS..BTL INJ ONE (10:19)
[2017-07-05] MEDS: IRON SUCROSE 100 MG in SODIUM CHLORIDE 0.9% 100 ML 100 ML IV SCH (12:29)
[2017-07-05] MEDS: ATORVASTATIN 10 MG TAB PO SCH (20:40)
--- NOTE | 2017-07-05 21:18 | Progress Note ---
DATE: July 05, 2017 SUBJECTIVE: The patient denies chest pain or shortness of breath. She was transferred out of the ICU. She has had no further bleeding. OBJECTIVE VITAL SIGNS: Temperature 97.5 degrees, pulse 77, respiratory rate 18, blood pressure 131/65, oxygen saturation 100%. GENERAL: Awake, alert and in no acute distress. LUNGS: Clear to auscultation bilaterally. No wheezes or crackles. CARDIOVASCULAR: Normal rate. Regular rhythm. No murmur. Normal S1 and S2. ABDOMEN: Soft and nontender. EXTREMITIES: No edema. CARDIAC MEDICATIONS 1. Plavix 75 mg p.o. daily. 2. Aspirin 81 mg p.o. q.a.m. 3. Atorvastatin 10 mg p.o. at bedtime. LABS: WBC 5.56, hemoglobin 8.6, hematocrit 26.9, platelets 262,000, sodium 142, potassium 3.7, chloride 107, CO2 of 29, BUN 11, creatinine 0.62. TELEMETRY: Normal sinus rhythm. IMPRESSION 1. Acute inferior ST-elevation myocardial infarction: Status post drug-eluting stent to the right coronary artery with right coronary artery thrombus noted. 2. Coronary artery disease. 3. Dyslipidemia. 4. Hypertension. 5. Peripheral arterial disease. 6. Diabetes. 7. Chronic obstructive pulmonary disease. 8. History of breast cancer. 9. History of lung cancer. 10. Chronic systolic heart failure. 11. Venous insufficiency. 12. Gastrointestinal bleeding. RECOMMENDATIONS: Continue current cardiac medications. Watch hemoglobin and hematocrit closely. Xarelto has been held due to this. The patient may sit up and ambulate with assistance. We will monitor for further hypotension or bleeding. It appears GI has decided against endoscopic evaluation due to her dual antiplatelet therapy. We will monitor for further bleeding episodes. Thank you for this consult. We will continue to follow. Job#: [id number] GH
--- NOTE | 2017-07-05 22:52 | Progress Note ---
DATE: July 05, 2017 PULMONARY MEDICINE PROGRESS NOTE SUBJECTIVE: Mrs. Polanco was seen and examined at bedside. She continues to expectorate hemoptysis. The level is about the same as yesterday. She is filling the bottom of a cup with her hemoptysis. I had a long discussion with the patient. She did have a CAT scan which showed multiple findings including different areas of ground-glass opacities as well as new irregular left upper lobe nodule and increased right middle lobe nodule suspicious for neoplasm in setting of emphysema and history. The daughter was present, a son was present and a son-in-law was present during this discussion. Of note, the right middle lobe nodule was previously 0.6 cm on May 01, 2011. No new chest symptoms, and patient remains on blood thinners at this time. REVIEW OF SYSTEMS: No headaches, no vomiting. OBJECTIVE VITAL SIGNS: Afebrile. Vital signs noted per electronic record. GENERALLY: No acute distress, alert and calm. HEENT: Normocephalic, atraumatic. NECK: Supple. Throat midline. LUNGS: Bilateral air entry, a few rhonchi at the bases. CARDIOVASCULAR: S1 and S2. No murmurs, rubs or gallops. ABDOMINAL: Soft, nontender. EXTREMITIES: No clubbing, no cyanosis. There is no edema. INTEGUMENT: No rash. No purpura. LABS: BUN 11, creatinine 0.6. Potassium 3.7. White count 6, hematocrit 27, platelets 262. Vitamin B12 level is 968, folate level 6.5. Fecal occult blood was positive. IMPRESSION AND PLAN 1. Hemoptysis, persistent/recurrent. 2. Acute admit for ST-elevation myocardial infarction status post high-risk stent percutaneous coronary intervention and intervention with stent placement. Need for anticoagulation. 3. Reported chronic obstructive pulmonary disease. 4. History of lung cancer 2002 status post right upper lobectomy. 5. History of breast cancer long ago. 6. History of esophageal dilatation. 7. Dyslipidemia. 8. Hypertension, diabetes, hyperlipidemia. 9. New lung nodules including one increasing in size, suspicious and worrisome for tumor and malignancy. 10. Abnormal chest radiography, bilateral ground-glass opacities not otherwise specified. Differential includes bleeding, pneumonitis, fluid. I discussed with patient the risks, benefits and alternatives of bronchoscopy. We will have the patient overbooked for tomorrow. Patient will have blood thinners on board; so, it is unlikely we are going to biopsy. Will try to localize the hemoptysis and consider if further intervention can be done in an emergency situation or later on as the stent takes better hold in the coronaries and the risk is reduced for myocardial events. Antibiotics are continued. Will follow along closely. Outpatient PET CT seems reasonable, and patient needs updated pulmonary function tests and pulmonary physiology workup in consideration of treatment for this lung nodule. I discussed with the family and patient. Job#: [id number] EV
[2017-07-06] VITALS (8 sets, daily range): BP systolic 128–151; BP diastolic 60–72
[2017-07-06] MEDS: PANTOPRAZOL 40MG/SOD CHL 0.9% 50 ML IV SCH ×5 (01:00→20:45)
[2017-07-06] MEDS: CEFEPIME HCL 1 GM VIAL IV SCH ×2 (01:00→15:00)
[2017-07-06 07:18] LABS: BASOPHILS % 0.7 % (0.0-1.0); EOSINOPHILS # (AUTO) 0.3 (0.0-0.4); EOSINOPHILS % 4.8 % (0.0-6.0); HEMATOCRIT 27.3 % (34.2-44.1); HEMOGLOBIN 8.8 g/dL (12.0-16.0); LYMPHOCYTES # (AUTO) 1.1 (1.0-3.2); LYMPHOCYTES % 18.8 % (18.0-39.1); MEAN CORPUSCULAR HEMOGLOBIN 29.4 pg (28-32); MEAN CORPUSCULAR HGB CONC 32.2 g/dL (31-35); MEAN CORPUSCULAR VOLUME 91.3 fL (81-99); MONOCYTES # (AUTO) 0.5 (0.2-0.8); MONOCYTES % 8.8 % (4.4-11.3); NEUTROPHILS # (AUTO) 3.8 (2.1-6.9); NEUTROPHILS % 66.2 % (38.7-80.0); PLATELET COUNT 311 x10e3/uL (140-360); RED BLOOD COUNT 2.99 x10e6/uL (3.6-5.1); RED CELL DISTRIBUTION WIDTH 15.2 % (11.7-14.4)
[2017-07-06] MEDS: SUCRALFATE 1 GM/10 ML SUSP NG SCH ×4 (07:30→20:45)
[2017-07-06 07:44] LABS: ANION GAP 9.5 mmol/L (8-16); BLOOD UREA NITROGEN 7 mg/dL (7-26); BUN/CREATININE RATIO 11 (6-25); CARBON DIOXIDE 29 mmol/L (22-29); CHLORIDE 108 mmol/L (98-107); CREATININE, SERUM 0.63 mg/dL (0.57-1.11); EST GLOMERULAR FILTRATION RATE > 60 ML/MIN (60-); GLUCOSE 140 mg/dL (74-118); POTASSIUM 3.5 mmol/L (3.5-5.1); SODIUM 143 mmol/L (136-145)
[2017-07-06] MEDS ORDERED: LIDOCAINE HCL 4% 50 ML BTL ONE (10:10)
[2017-07-06] MEDS ORDERED: LIDOCAINE HCL 2% 30 ML TUBE ONE (10:10)
[2017-07-06] MEDS ORDERED: OXYMETAZOLINE HCL 0.05% NAS 1 SPRAY BTL ONE (10:10)
[2017-07-06] MEDS ORDERED: EPINEPHRINE HCL INJ 1 MG/ML AMP ONE (10:10)
--- NOTE | 2017-07-06 11:25 | Progress Note ---
DATE: July 06, 2017 PULMONARY MEDICINE PROGRESS NOTE SUBJECTIVE: Ms. Polanco was seen and examined at bedside. She continues to have hemoptysis, although it is less than previous days. She is coughing up globules rather than filling up the bottom of the cup. The patient is without any increased respiratory distress. She was discussed regarding bronchoscopy, and it appears she agrees to proceed, knowing the risks, benefits and alternatives. REVIEW OF SYSTEMS: No headaches. No rash. OBJECTIVE VITALS: Afebrile. Vital signs noted per electronic record. GENERAL: No acute distress, alert, calm. HEENT: Normocephalic, atraumatic. NECK: Supple. Throat midline. LUNGS: Bilateral air entry, a few rhonchi. CARDIOVASCULAR: S1 and S2. No murmurs, rubs or gallops. ABDOMEN: Soft, nontender. EXTREMITIES: No clubbing, no cyanosis. There is edema. INTEGUMENT: No rash. No purpura. LABS: 3.5 potassium, 0.6 creatinine, 27 hematocrit, 5.6 white count, 311 platelets. IMPRESSION AND PLAN 1. Recurrent intermittent hemoptysis. 2. Lung nodules, multiple, not otherwise specified. 3. Increasing right middle lobe lung nodule. 4. Chronic obstructive pulmonary disease with exacerbation. 5. History of lung cancer, status post right upper lobe lobectomy. We are discussing the risks, benefits and alternatives with the family, cardiology and anesthesia team. Consideration for bronchoscopy given the urgent nature in preparation for any future worsening. Possible intervention in the future if localized can be for directed bronchial angiography and ablation of any bleed. Short-term possible interventions would be argon, but would minimize any possibility of new puncture sites or bleeding, given the patient is on high blood thinners that would be high risk if they have to be reversed. Will continue to follow closely. The patient additionally had some GI blood loss that reportedly GI will be looking at. Will follow along closely. Job#: [id number]
[2017-07-06 13:08] LABS: BODY FLUID TYPE BRONCH
[2017-07-06 13:09] LABS: BODY FLUID APPEARANCE SL.CLOUDY; BODY FLUID COLOR COLORLESS
[2017-07-06] MEDS: CLOPIDOGREL BISULFATE 75 MG TAB PO SCH (13:10)
[2017-07-06] MEDS: ASPIRIN 81 MG ENTERIC COATED PO SCH (13:10)
[2017-07-06 13:11] LABS: RBC,BODY FLUID 389 cells/uL; WBC,BODY FLUID 43 cells/uL
[2017-07-06 14:22] LABS: LYMPHOCYTES,BODY FLUID 33 %; MONO/MACROPHG,BODY FLUID 1 %; OTHER CELLS,BODY FLUID 41 %
[2017-07-06 14:29] LABS: NEUTROPHILS,BODY FLUID 25 %
--- NOTE | 2017-07-06 14:55 | Operative Report ---
DATE OF PROCEDURE: July 06, 2017 PROCEDURE: Fiberoptic flexible bronchoscopy, washes, and bronchoalveolar lavage. INDICATIONS: Persistent recurrent hemoptysis and need for future anticoagulation. CONSENT: Informed consent from the patient and family members additionally. ANESTHESIA: MAC anesthesia per anesthesiology. FINDINGS: Via an oral airway, the flexible bronchoscope was inserted into the airway. Some local lidocaine 4% was given at the vocal cords after atomizing lidocaine with the sprayer. The patient had the vocal cords that seemed to be fully mobile. These were transverse, and the bronchoscope was inserted into the tracheobronchial tree. The patient thereafter had inspection performed. There was normal airway configuration with no evidence of endobronchial lesions with the exception of a closed right upper lobe stump that correlates to the clinical history of lobectomy. There was crimson brown mucoid sputum throughout the airways, and secretions were suctioned easily, although they were moderately thick. There was of interest no active bleeding, but there was a larger amount of the crimson mucoid material in the superior segment of the left lower lobe. Washings were taken, and no recurrence of any bleed occurred throughout the airways, but there was suspicion of this location in the superior segment of the left lower lobe. After no active bleeding was noted, the bronchoscope was wedged into the right middle lobe for bronchoalveolar lavage. At this point, washes and lavage were done, and it was done here to correlate the increasing lung nodule seen on radiography. Thereafter, the bronchoscope was removed. The patient was allowed to recover with anesthesia. IMPRESSION: No active bleeding while the patient is on aspirin and Plavix. Anticoagulants were held previously due to gastrointestinal bleed. Successful bronchoalveolar lavage of right middle lobe and washes taken. RECOMMENDATIONS: Follow the cytology and the mycobacterial and fungal cultures namely and all the other results in 7 to 10 days, although it may take 6 weeks or more to finalize these results. COMPLICATIONS: None. ESTIMATED BLOOD LOSS: None. Job#: [id number]
[2017-07-06] MEDS: IRON SUCROSE 100 MG in SODIUM CHLORIDE 0.9% 100 ML 100 ML IV SCH (15:00)
--- NOTE | 2017-07-06 16:25 | Progress Note ---
DATE: July 06, 2017 CARDIOLOGY PROGRESS NOTE SUBJECTIVE: Patient was seen post bronchoscopy. Remains sedated. OBJECTIVE VITAL SIGNS: Temperature 97.6 degrees, pulse 87, respiratory rate 18, blood pressure 140/63, oxygen saturation 95% on room air. GENERAL: Sedated immediately after bronchoscopy. No acute distress. LUNGS: Clear to auscultation bilaterally. No wheezes or crackles. CARDIOVASCULAR: Normal rate, regular rhythm. No murmur. Normal S1 and S2. ABDOMEN: Soft, nontender. EXTREMITIES: No edema. CARDIAC MEDICATIONS 1. Atorvastatin 10 mg p.o. nightly. 2. Plavix 75 mg p.o. daily. 3. Aspirin 81 mg p.o. q.a.m. LABS: WBC is 5.68, hemoglobin 8.8, hematocrit 27.3, platelets 311. Sodium 143, potassium 3.5, chloride 108, CO2 29, BUN 7, creatinine 0.63. TELEMETRY: Normal sinus rhythm. IMPRESSION 1. Acute inferior ST-elevation myocardial infarction, status post drug-eluting stent to the right coronary artery with right coronary artery thrombus noted. 2. Coronary artery disease. 3. Peripheral arterial disease. 4. Dyslipidemia. 5. Hypertension. 6. Diabetes mellitus. 7. Chronic obstructive pulmonary disease. 8. History of breast cancer. 9. History of lung cancer. 10. Chronic systolic heart failure. 11. Venous insufficiency. 12. Gastrointestinal bleeding. RECOMMENDATIONS: Continue current cardiac medications. Watch hemoglobin and hematocrit closely. Xarelto was held due to GI bleeding. No further episodes have been noted. Patient underwent bronchoscopy today due to continued hemoptysis. No active bleeding was found. Monitor patient on telemetry while admitted. Thank you for this consult. We will continue to follow. Job#: [id number] EV
[2017-07-06] MEDS ORDERED: GLYCOPYRROLATE INJ 1MG/ 5 ML SYR ONE (18:41)
[2017-07-06] MEDS ORDERED: KETAMINE HCL INJ 50 MG/ML 10 ML VIAL ONE (18:55)
[2017-07-06] MEDS ORDERED: MIDAZOLAM HCL 2 MG/2 ML VIAL ONE (18:55)
[2017-07-06] MEDS ORDERED: FENTANYL CITRATE/PF 100MCG/2 ML INJ ONE (18:55)
[2017-07-06] MEDS: METOPROLOL TARTRATE 25 MG TAB PO SCH (19:19)
[2017-07-06] MEDS: ATORVASTATIN 10 MG TAB PO SCH (20:45)
[2017-07-07] VITALS: BP 120/65
[2017-07-07] MEDS: CEFEPIME HCL 1 GM VIAL IV SCH (00:10)
[2017-07-07] MEDS: PANTOPRAZOL 40MG/SOD CHL 0.9% 50 ML IV SCH ×2 (02:28→08:28)
[2017-07-07 04:00] VITALS: BP 127/56
[2017-07-07 06:57] LABS: BASOPHILS % 0.5 % (0.0-1.0); EOSINOPHILS # (AUTO) 0.1 (0.0-0.4); EOSINOPHILS % 1.7 % (0.0-6.0); HEMATOCRIT 27.5 % (34.2-44.1); HEMOGLOBIN 8.8 g/dL (12.0-16.0); LYMPHOCYTES # (AUTO) 1.4 (1.0-3.2); LYMPHOCYTES % 17.7 % (18.0-39.1); MEAN CORPUSCULAR HEMOGLOBIN 29.3 pg (28-32); MEAN CORPUSCULAR VOLUME 91.7 fL (81-99); MONOCYTES # (AUTO) 0.7 (0.2-0.8); MONOCYTES % 8.7 % (4.4-11.3); NEUTROPHILS # (AUTO) 5.5 (2.1-6.9); NEUTROPHILS % 70.8 % (38.7-80.0); PLATELET COUNT 299 x10e3/uL (140-360); RED CELL DISTRIBUTION WIDTH 15.6 % (11.7-14.4)
[2017-07-07 07:24] LABS: ANION GAP 9.1 mmol/L (8-16); BLOOD UREA NITROGEN 7 mg/dL (7-26); BUN/CREATININE RATIO 11 (6-25); CALCIUM 7.9 mg/dL (8.4-10.2); CARBON DIOXIDE 28 mmol/L (22-29); CHLORIDE 104 mmol/L (98-107); CREATININE, SERUM 0.61 mg/dL (0.57-1.11); EST GLOMERULAR FILTRATION RATE > 60 ML/MIN (60-); GLUCOSE 126 mg/dL (74-118); POTASSIUM 3.1 mmol/L (3.5-5.1); SODIUM 138 mmol/L (136-145)
[2017-07-07 08:15] VITALS: BP 111/59
[2017-07-07] MEDS: METOPROLOL TARTRATE 25 MG TAB PO SCH (08:28)
[2017-07-07] MEDS: ASPIRIN 81 MG ENTERIC COATED PO SCH (08:28)
[2017-07-07] MEDS: SUCRALFATE 1 GM/10 ML SUSP NG SCH ×2 (08:28→11:30)
[2017-07-07] MEDS ORDERED: POTASSIUM CHLORIDE 20 MEQ TAB CR PO ONE (11:30)
--- NOTE | 2017-07-07 11:44 | Discharge Summary ---
PRIMARY CARE DOCTOR: Dr. Ubaldo Foley FINAL DIAGNOSIS: ST-elevation myocardial infarction due to stent restenosis. SECONDARY DIAGNOSES 1. Gastrointestinal bleed. 2. Iron deficiency anemia. 3. Pneumonia with hemoptysis. 4. Diabetes. 5. Right coronary artery thrombus. 6. History of lung cancer with possible recurrence. 7. Previous breast cancer. 8. Chronic stable systolic congestive heart failure, ejection fraction 35% to 40%. CONSULTANTS 1. Dr. Zaldivar, pulmonary. 2. Dr. Lanre Crowley, GI. 3. Dr. Sampson, cardiology. PROCEDURES/STUDIES PERFORMED 1. Percutaneous coronary intervention. 2. Bronchoscopy. 3. Chest CT. HISTORY: Per H and P. HOSPITAL COURSE: The patient was admitted with ST-elevation AL, which had happened a couple of weeks ago. Apparently, there was stent restenosis. I discussed this with cardiology. Apparently, even this time, they had difficulty deploying the stent. Therefore, this was not considered a Plavix failure. The patient will be going home on aspirin and Plavix. There was also a thrombus found in the right coronary artery. The hope was to put her on Xarelto as well; however, the patient had GI bleed. Therefore, this was stopped. The patient was evaluated by GI. EGD was not done. The patient was put on Protonix drip and Carafate. Her hemoglobin remained stable. The patient also has hemoptysis. Chest CT showed pneumonia and possible lung cancer recurrence. Bronchoscopy was done, which did not show any active hemoptysis. The patient was treated with IV cefepime and will go home on 3 more days of oral Levaquin to complete a course. The patient will need to follow up with [facility] training representative closely. The patient was seen and examined today. It took 35 minutes total to coordinate this discharge with all the consultants. CONDITION ON DISCHARGE: Stable. DISCHARGE MEDICATIONS: Please see medication reconciliation form. PARDEEP GUZMAN M.D. Job#: [id number] cc:UBALDO FOLEY MD
[2017-07-07] MEDS ORDERED: ASPIR 8181 MG PO (11:46)
[2017-07-07] MEDS ORDERED: PANTOPRAZOLE SO40 MG PO (11:47)
[2017-07-07] MEDS ORDERED: CARAFATE1 GM/10 ML PO (11:48)
[2017-07-07] MEDS ORDERED: TOPROL XL25 MG PO (11:48)
[2017-07-07] MEDS ORDERED: LEVAQUIN500 MG PO (11:49)
[2017-07-07] MEDS ORDERED: XARELTO10 MG PO (11:52)
--- NOTE | 2017-07-07 12:27 | Progress Note ---
DATE: July 07, 2017 CARDIOLOGY PROGRESS NOTE SUBJECTIVE: Patient denies chest pain or shortness of breath. OBJECTIVE VITAL SIGNS: Temperature 97.7 degrees, pulse 77, respiratory rate 20, blood pressure 111/59, oxygen saturation 96% on room air. GENERAL: Awake, alert, in no acute distress. LUNGS: Clear to auscultation bilaterally. No wheezes or crackles. CARDIOVASCULAR: Normal rate, regular rhythm. No murmur. Normal S1 and S2. ABDOMEN: Soft, nontender. EXTREMITIES: No edema. CARDIAC MEDICATIONS 1. Metoprolol 12.5 mg p.o. q.12 h. 2. Aspirin 81 mg p.o. daily. 3. Atorvastatin 10 mg p.o. nightly. 4. Plavix 75 mg p.o. daily. LABS: WBC is 7.7, hemoglobin 8.8, hematocrit 27.5, platelets 299. Sodium 138, potassium 3.1, chloride 104, CO2 28, BUN 7, creatinine 0.61. TELEMETRY: Normal sinus rhythm. IMPRESSION 1. Acute inferior ST-elevation myocardial infarction, status post drug-eluting stent to the right coronary artery with right coronary artery thrombus noted. 2. Coronary artery disease. 3. Peripheral arterial disease. 4. Dyslipidemia. 5. Hypertension. 6. Diabetes mellitus. 7. Chronic obstructive pulmonary disease. 8. History of breast cancer. 9. History of lung cancer. 10. Chronic systolic heart failure. 11. Venous insufficiency. 12. Gastrointestinal bleeding. 13. Hemoptysis. RECOMMENDATIONS: Continue current cardiac medications. Hemoglobin and hematocrit have been stable. The patient reports hemoptysis has stopped. Given the patient's in-stent thrombosis and recurrent ST-elevation myocardial infarction with residual right coronary artery thrombus, recommendation was for dual antiplatelet therapy with aspirin and Plavix with the addition of Xarelto 15 mg p.o. daily. The risks and benefits of this regimen were discussed with the patient and her family. Specifically, we discussed that the patient is an increased risk of bleeding, which could be life threatening. ER warnings were provided to return to the ER if she notices recurrent hemoptysis or GI bleeding. The patient and the family expressed understanding and were in agreement with the plan of care. The patient was recommended to have followup with her outpatient metal products viewer in 1 week. Thank you for this consult. We will continue to follow. Job#: [id number] HEBER
--- NOTE | 2017-07-16 16:41 | Operative Report ---
DATE OF PROCEDURE: July 01, 2017 INDICATIONS: ST-elevation myocardial infarction. PROCEDURES PERFORMED 1. Left heart catheterization, selective coronary angiography. 2. Deployment of right groin temporary transvenous pacemaker. 3. Percutaneous coronary intervention to the proximal and distal right coronary artery. COMPLICATIONS: None. RECOMMENDATIONS: Aggressive medical therapy. Access was obtained in the right femoral artery. Left coronary system had mild coronary artery disease. Right coronary artery previously placed stent was completely occluded with thrombosis. The patient received intravenous heparin for anticoagulation along with Integrilin. The right coronary artery was cannulated using a hockey stick guide, 6 Mongolian. A wire was advanced across the distal stent with extreme difficulty necessitating multiple wires changes. Balloon angioplasty with a 2.5-mm balloon was all that was successful. Unable to advance stents even despite use of a guide line in the right coronary. The proximal right coronary artery was stented primarily using a 3 x 12 mm stent, and angiography demonstrated less than 20% residual stenosis in the distal stent and ALLIE-3 flow. The guidewire and sheath were removed. Sheath was secured in place. Patient transferred to ICU in stable condition. Job#: [id number]
== END 2017-07-07 12:18 | disposition home or self-care (01) | DRG 246 ==
LOC: ER 17:33 → ERHOLD 19:13 → ICU 20:55 → MED/SURG 07-05 15:05
PROVIDERS: ADMIT Internal Medicine; ATTEND Internal Medicine
PROC: 4A023N7 Measurement of Cardiac Sampling and Pressure, Left Heart, Percutaneous Approach (ICD-10-PCS; principal; 2017-07-01)
PROC: 027134Z Dilation of Coronary Artery, Two Arteries with Drug-eluting Intraluminal Device, Percutaneous Approach (ICD-10-PCS; 2017-07-01)
PROC: B2111ZZ Fluoroscopy of Multiple Coronary Arteries using Low Osmolar Contrast (ICD-10-PCS; 2017-07-01)
PROC: B2151ZZ Fluoroscopy of Left Heart using Low Osmolar Contrast (ICD-10-PCS; 2017-07-01)
PROC: 0B958ZX Drainage of Right Middle Lobe Bronchus, Via Natural or Artificial Opening Endoscopic, Diagnostic (ICD-10-PCS; 2017-07-06)
PROC: 3E1F88X Irrigation of Respiratory Tract using Irrigating Substance, Via Natural or Artificial Opening Endoscopic, Diagnostic (ICD-10-PCS; 2017-07-06)
DX: I22.1 Subsequent ST elevation (STEMI) myocardial infarction of inferior wall (principal); J18.9 Pneumonia, unspecified organism; I13.0 Hypertensive heart and chronic kidney disease with heart failure and stage 1 through stage 4 chronic kidney disease, or unspecified chronic kidney disease; E11.51 Type 2 diabetes mellitus with diabetic peripheral angiopathy without gangrene; K92.2 Gastrointestinal hemorrhage, unspecified; I50.22 Chronic systolic (congestive) heart failure; R04.2 Hemoptysis; I21.3 ST elevation (STEMI) myocardial infarction of unspecified site; J44.9 Chronic obstructive pulmonary disease, unspecified; I25.10 Atherosclerotic heart disease of native coronary artery without angina pectoris; Z85.118 Personal history of other malignant neoplasm of bronchus and lung; Z85.3 Personal history of malignant neoplasm of breast; E78.5 Hyperlipidemia, unspecified; N18.9 Chronic kidney disease, unspecified; Z79.01 Long term (current) use of anticoagulants; Z88.0 Allergy status to penicillin; Z88.8 Allergy status to other drugs, medicaments and biological substances; D50.9 Iron deficiency anemia, unspecified; Z87.891 Personal history of nicotine dependence
CPT/HCPCS: 36140; 36415; 71045; 71260; 77002; 80048; 80053; 80061; 82270; 82550; 82553; 82607; 82728; 82746; 82948; 83540; 83735; 84466; 84484; 85025; 85045; 85347; 85610; 85730; 86850; 86900; 87102; 87116; 87205; 87206; 87335; 88112; 88305; 88312; 89051; 92920; 92953; 93005; 96361; 96375; 96376; 99285; C1766; C9606; J0171; J0583; J0692; J1327; J1644; J1756; J2001; J2250; J2270; J2405; J3480; J7030; J7050; Q9967

== ENCOUNTER 2017-07-24 19:45 | Inpatient (IN) | payer MEDICARE ==
[~2017-07-24] VITALS: Ht 157.5 cm; Wt 70.8 kg
[~2017-07-24 19:45] MED LIST changes: +AZOR 10-40 MG1 EACH PO; +CARAFATE1 GM/10 ML PO; +CILOSTAZOL100 MG PO; +GABAPENTIN100 MG PO; +LEVAQUIN500 MG PO; +MECLIZINE HCL12.5 MG PO; +MULTIVITAMINS1 EAC6 PEG; +OYSTER SHELL C1 EACH PO; +TOPROL XL25 MG PO; +XARELTO10 MG PO
--- OUTSIDE RECORDS SUMMARY | 2017-07-24 19:49 | XMS REPORT | Continuity of Care Document ---
Author Author [facility] Organization [facility] Address [address] [address] Phone Unavailable Care Team Providers Care Track Maintainer Name Role Phone NONSTAFF PCP Unavailable Insurance Providers Guarantor Silverio Polanco Address [address] [place] [address] Email [email or web address] Medicare Advantage Policy Number [id number] Subscriber's Name Silverio Polanco Relationship 18 Self / Same As Patient Effective Date 13 Advance Directives Directive Response Recorded Date/Time Does the patient have an advance directive? No 07/02/17 12:18am If yes, is advance directive on file with [facility]? No 07/02/17 12:18am If not on file with [facility] will patient provide a copy? No 07/02/17 12:18am Do you have a Directive to Physician? No 07/01/17 6:01pm Do you have a Medical Power of It Program Engagement Director? No 07/01/17 6:01pm Do you have an out of hospital Do Not Resuscitate Order? No 07/01/17 6:01pm Do you have any special needs we should be aware of? No 07/01/17 6:01pm Do you have a support person here with you today? Yes 07/01/17 6:01pm Did patient receive Notice of Privacy Practices? Yes 07/01/17 6:01pm Did patient receive patient rights and responsibilities? Yes 07/01/17 6:01pm Problems Medical Problem Onset Date Status Esophageal [...] Inh 2 Inh Inhalation Every 6 Hours as needed for Shortness Of Breath Amlodipine Bes/Olmesartan Med (Tushar 10-40 Mg Tablet) 1 Each Tablet 1 Tab Oral Daily Anastrozole 1 Gm Powder 1 Mg Oral Daily Aspirin (Aspir 81) 81 Mg Tablet.dr 81 Mg Oral Daily Budesonide/Formoterol Fumarate (Symbicort 80-4.5 Mcg Inhaler) 10.2 Gm Hfa.aer.ad 1 Each Inhalation Twice A Day Calcium Carbonate/Vitamin D2 (Oyster Shell Calcium-Vit D Tab) 1 Each Tablet 1 Tab Oral Daily Cholecalciferol (Vitamin D3) (Vitamin D) 400 Unit Capsule 1,000 Units Oral Daily Clopidogrel Bisulfate (Clopidogrel) 75 Mg Tablet 75 Mg Oral Daily 30 Tab Fexofenadine Hcl 180 Mg Tablet 180 Mg Oral Bedtime THERAPEUTICALLY SUBSTITUTED WITH LORATIDINE Gabapentin 100 Mg Capsule 100 Mg Oral Bedtime Ibuprofen (Advil) 200 Mg Capsule 200 Mg Oral As Needed Levofloxacin (Levaquin) 500 Mg Tablet 500 Mg Oral Daily Meclizine Hcl 12.5 Mg Tablet 25 Mg Oral Three Times A Day as needed for Dizziness Metoprolol Succinate (Toprol Xl) 25 Mg Tab.er.24h 25 Mg Oral Daily 30 Tab Multivitamin With Minerals (Multivitamins With Minerals) 1 Each Tablet 1 Tab Peg Tube Twice A Day Nasacort 1 [place] Nasal Daily as needed for Nasal Congestion Pantoprazole Sodium (Protonix) 40 Mg Tablet.dr 40 Mg Oral Twice A Day Rivaroxaban (Xarelto) 10 Mg Tablet 15 Mg Oral Daily At 1700 Simvastatin 20 Mg Tablet 20 Mg Oral Qhs Sucralfate (Carafate) 1 Gm/10 Ml Oral.susp 1 Gm Oral Before Meals And At Bedtime Timolol (Betimol) 5 Ml Drops 1 Drop Each Eye Every Morning Past Home Medications Medication Directions Ordered Status Albuterol Sulfate (Accuneb) 0.63 Mg/3 Ml Vial.neb, 90 Mcg Four Times Daily Discontinued Amlodipine Bes/Olmesartan Med (Tushar 10-20 Mg Tablet) 1 Each Tablet, 5 Mg Oral Twice A Day Discontinued Ascorbic Acid (Vitamin C) 60 Mg Lozenge, Oral Daily Discontinued Aspirin (Aspir 81) 81 Mg Tablet.dr, 81 Mg Oral Daily Discontinued Carvedilol 6.25 Mg Tablet, 12.5 Mg Oral Twice A Day Discontinued Cetirizine Hcl (Zyrtec) 5 Mg Tab.chew, Oral Daily Discontinued Cilostazol 100 Mg Tablet, 50 Mg Oral Twice A Day Discontinued Esomeprazole Magnesium (Nexium) 40 Mg Capsule.dr, 40 Mg Oral Before Breakfast 02/26/15 Discontinued Fluticasone Propionate (Flonase) 16 Gm [place].susp, 2 Daily Discontinued Glipizide (Glipizide Er) 2.5 Mg Tab.er.24, 2.5 Mg Oral Am Discontinued Hydrochlorothiazide 12.5 Mg Tablet, 12.5 Mg Oral Daily 02/26/15 Discontinued Metformin Hcl (Glucophage) 500 Mg Tablet, 500 Mg Oral Twice A Day Discontinued Metoclopramide Hcl (Reglan) 10 Mg Tablet, 10 Mg Oral Before Meals And At Bedtime 02/26/15 Discontinued Omeprazole 20 Mg Tablet.dr, 20 Mg Oral Daily Discontinued Pantoprazole Sodium (Protonix) 40 Mg Tablet.dr, 40 Mg Oral Daily Discontinued Pseudoephed/Chlorpheniramine (Chlorphen-Pse Drops) 30 Ml Drops, Oral Discontinued Social History Social History Problem Response Recorded Date/Time Onset Date Status Hx Psychiatric Problems No 07/02/2017 12:18am Not Applicable Not Applicable Hx Eating Disorder No 07/02/2017 12:18am Not Applicable Not Applicable Hx Substance Use Disorder No 07/02/2017 12:18am Not Applicable Not Applicable Hx Depression No 07/02/2017 12:18am Not Applicable Not Applicable Hx Alcohol Use No 07/02/2017 12:18am Not Applicable Not Applicable Hx Substance Use Treatment No 07/02/2017 12:18am Not Applicable Not Applicable Hx Physical Abuse No 07/02/2017 12:18am Not Applicable Not Applicable Smoking Status Start Date Stop Date Former smoker Hospital Discharge Instructions No hospital discharge instruction information available. Plan of Care Discharge Date 07/07/17 12:18pm Disposition HOME, SELF-CARE Instructions/Education Provided Chest Pain - Chest Wall Prescriptions See Medication Section Additional Instructions/Education Diabetic Diet Activity as tolerated Take medications as prescribed Follow up with PCP in one week Functional Status Query Response Date Recorded Assistive Devices None July 02, 2017 3:05am Ambulation Ability Independent July 02, 2017 3:05am Toileting Ability Minimum Assistance July 06, 2017 6:33pm Allergies, Adverse Reactions, Alerts Allergen Type Severity Reaction Status Last Updated Penicillin Allergy Unknown Active 07/01/17 Tramadol Adverse Reaction Unknown NAUSEA Active 07/01/17 Brimonidine Allergy Intermediate ITCHING/ ALLERGIC TO "ALPHANGAN" Active 07/01/17 ALPHANGAN Allergy Intermediate ITCHING Active 02/13/16 Immunizations No immunization information available. Vital Signs Acute Vital Signs Vital Response Date/Time Temperature (Fahrenheit) 97.7 degrees F (97.6 - 99.5) 07/07/2017 8:15am Pulse Pulse Rate (adult) 77 bpm (60 - 90) 07/07/2017 8:15am Respiratory Rate 20 bpm (12 - 24) 07/07/2017 8:15am Blood Pressure 111/59 mm Hg 07/07/2017 8:15am Height 5 ft 2 in 07/01/2017 5:50pm Weight 170 lb 07/05/2017 5:18am Body Mass Index 31.1 kg/m^2 07/05/2017 5:18am Results Laboratory Results Test Name Result Units Flags Reference Collection Date/Time Result Date/ Time Comments Urine Color YELLOW YELLOW 06/18/2017 1:30am 06/18/2017 3:06am Urine Clarity CLEAR CLEAR 06/18/2017 1:30am 06/18/2017 3:06am Urine Specific [place] 1.010 1.010-1.025 06/18/2017 1:30am 2017 3:06am Urine pH 6.5 5 - 7 06/18/2017 1:30am 06/18/2017 3:06am Urine Leukocyte Esterase NEGATIVE NEGATIVE 06/18/2017 1:30am 2017 3:06am Urine Nitrite NEGATIVE NEGATIVE 06/18/2017 1:30am 06/18/2017 3:06am Urine Protein NEGATIVE NEGATIVE 06/18/2017 1:30am 06/18/2017 3:06am Urine Glucose (UA) 1+ H NEGATIVE 06/18/2017 1:3006/18/2017 3:06am Urine Ketones 1+ H NEGATIVE 06/18/2017 [...] /LPF NONE 06/18/2017 1:30am 06/18/2017 3: 08am Direct Bilirubin 0.4 mg/dL 0.0-0.5 06/18/2017 5:20am 06/18/2017 7:00am White Blood Count 7.78 x10e3/uL 4.8-10.8 07/07/2017 6:30am 07/07/2017 7 :20am Red Blood Count 3.00 x10e6/uL L 3.6-5.1 07/07/2017 6:30am 07/07/2017 7: 20am Hemoglobin 8.8 g/dL L 12.0-16.0 07/07/2017 6:30am 07/07/2017 7:20am Hematocrit 27.5 % L 34.2-44.1 07/07/2017 6:30am 07/07/2017 7:20am Mean Corpuscular Volume 91.7 fL 81-99 07/07/2017 6:30am 07/07/2017 7: 20am Mean Corpuscular Hemoglobin 29.3 pg 28-32 07/07/2017 6:30am 07/07/2017 7:20am Mean Corpuscular Hemoglobin Concent 32.0 g/dL 31-35 07/07/2017 6:07/07/2017 7:20am Red Cell Distribution Width 15.6 % H 11.7-14.4 07/07/2017 6:2017 7:20am Platelet Count 299 x10e3/uL 140-360 07/07/2017 6:07/07/2017 7: 20am Neutrophils (%) (Auto) 70.8 % 38.7-80.0 07/07/2017 6:07/07/2017 7: 20am Lymphocytes (%) (Auto) 17.7 % L 18.0-39.1 07/07/2017 6:07/07/2017 7 :20am Monocytes (%) (Auto) 8.7 % 4.4-11.3 07/07/2017 6:07/07/2017 7: 20am Eosinophils (%) (Auto) 1.7 % 0.0-6.0 07/07/2017 6:07/07/2017 7: 20am Basophils (%) (Auto) 0.5 % 0.0-1.0 07/07/2017 6:07/07/2017 7:20am IM GRANULOCYTES % 0.6 % 0.0-1.0 07/07/2017 6:07/07/2017 7:20am Neutrophils # (Auto) 5.5 2.1-6.9 07/07/2017 6:07/07/2017 7:20am Lymphocytes # (Auto) 1.4 1.0-3.2 07/07/2017 6:07/07/2017 7:20am Monocytes # (Auto) 0.7 0.2-0.8 07/07/2017 6:07/07/2017 7:20am Eosinophils # (Auto) 0.1 0.0-0.4 07/07/2017 6:07/07/2017 7:20am Basophils # (Auto) 0.0 0.0-0.1 07/07/2017 6:07/07/2017 7:20am Absolute Immature Granulocyte (auto 0.05 x10e3/uL 0-0.1 07/07/2017 6: 07/07/2017 7:20am Percent Reticulocyte Count 3.7 % H 0.8-2.2 07/05/2017 5:30am 07/05/2017 5:58am Prothrombin Time 14.3 seconds 11.9-14.5 07/03/2017 5:00am 07/03/2017 6: 19am Prothromb Time International Ratio 1.20 07/03/2017 5:00am 2017 6:19am Oral Anticoagulant Therapy INR Values: 1. Low Intensity Therapy 1.5 - 2.0 2. Moderate Intensity Therapy 2.0 - 3.0 3. High Intensity Therapy(1) 2.5 - 3.5 4. High Intensity Therapy(2) 3.0 - 4.0 5. Panic Value INR > 5.0 Activated Partial Thromboplast Time 29.3 seconds 23.8-35.5 07/03/2017 5: 00am 07/03/2017 6:19am Sodium Level 138 mmol/L 136-145 07/07/2017 6:30am 07/07/2017 7:29am Potassium Level 3.1 mmol/L L 3.5-5.1 07/07/2017 6:30am 07/07/2017 7: 29am Chloride Level 104 mmol/L 98-107 07/07/2017 6:30am 07/07/2017 7:29am Carbon Dioxide Level 28 mmol/L 22-07/07/2017 6:30am 07/07/2017 7: 29am Anion Gap 9.1 mmol/L 8-16 07/07/2017 6:30am 07/07/2017 7:29am Blood Urea Nitrogen 7 mg/dL 11-0207/07/2017 6:30am 07/07/2017 7:29am Creatinine 0.61 mg/dL 0.57-1.11 07/07/2017 6:30am 07/07/2017 7:29am BUN/Creatinine Ratio 11 6-07/07/2017 6:30am 07/07/2017 7:29am Estimat Glomerular Filtration Rate > 60 ML/MIN 60- 07/07/2017 6:30am 7:29am Ranges were taken from the National Kidney Disease Education Program and the National [employer] literature. Reference ranges: 60 or greater: Normal 16-59 (for 3 consecutive months): Chronic kidney disease 15 or less: Kidney failure Glucose Level 126 mg/dL H 74-118 07/07/2017 6:30am 07/07/2017 7:29am Calcium Level 7.9 mg/dL L 8.4-10.2 07/07/2017 6:30am 07/07/2017 7:29am Bedside Glucose 125 mg/dL H 70-120 07/07/2017 7:08am 07/07/2017 7:57am Meter ID: [id number] Magnesium Level 1.6 MG/DL 1.3-2.1 07/05/2017 5:30am 07/05/2017 6:16am Iron Level 21 ug/dL L 50-170 07/05/2017 5:30am 07/05/2017 6:52am Total Iron Binding Capacity 267 ug/dL 261-478 07/05/2017 5:30am 2017 6:52am Percent Iron Saturation 8 % L 15-50 07/05/2017 5:30am 07/05/2017 6:52am Transferrin 191 mg/dL 180-382 07/05/2017 5:30am 07/05/2017 6:52am Ferritin 83.34 ng/mL 4.63-204.00 07/05/2017 5:30am 07/05/2017 7:02am Total Bilirubin 0.6 mg/dL 0.2-1.2 07/03/2017 5:00am 07/03/2017 6:20am Aspartate Amino Transf (AST/SGOT) 18 IU/L 5-34 07/03/2017 5:00am 2017 6:20am Alanine Aminotransferase (ALT/SGPT) 6 IU/L 0-55 07/03/2017 5:00am 07/03 6:20am Total Protein 4.7 g/dL L 6.5-8.1 07/03/2017 5:00am 07/03/2017 6:20am Albumin 2.4 g/dL L 3.5-5.0 07/03/2017 5:00am 07/03/2017 6:20am Globulin 2.3 g/dL 2.3-3.5 07/03/2017 5:00am 07/03/2017 6:20am Albumin/Globulin Ratio 1.0 0.8-2.0 07/03/2017 5:00am 07/03/2017 6: 20am Alkaline Phosphatase 44 IU/L 40-150 07/03/2017 5:00am 07/03/2017 6: 20am Triglycerides Level 75 MG/DL 0-149 07/04/2017 5:45am 07/04/2017 6:43am Cholesterol Level 87 MD/DL 0-199 07/04/2017 5:45am 07/04/2017 6:43am Less than 200 mg/dL Low Risk 201 - 239 mg/dL Borderline Risk 240 mg/dl and greater High Risk LDL Cholesterol 41 MG/DL L 60-130 07/04/2017 5:45am 07/04/2017 6:43am HDL Cholesterol 31 MG/DL L 40-60 07/04/2017 5:45am 07/04/2017 6:43am Cholesterol/HDL Ratio 2.8 L 3.0-3.6 07/04/2017 5:45am 07/04/2017 6: 43am Creatine Kinase 244 IU/L H 29-168 07/02/2017 12:15pm 07/02/2017 1:02pm Creatine Kinase MB 16.80 ng/mL H 0-5.0 07/02/2017 12:15pm 07/02/2017 1: 09pm Troponin I 5.207 ng/mL H 0-0.300 07/02/2017 12:15pm 07/02/2017 1:09pm Elevated result called to LENNY JUARES at 1308 on 07/02/17 by Mayela James. Vitamin B12 Level 968 pg/mL H 213-816 07/05/2017 5:30am 07/05/2017 8: 35am Folate 6.5 ng/mL L 7.0-15.4 07/05/2017 5:30am 07/05/2017 8:35am Activated Clotting Time 136 sec 07/03/2017 8:27pm 07/03/2017 9:06pm Line pull <170 sec or baseline Peripheral and Neuroradiology <400 sec Angioplasty 220 sec Body Fluid Type BRONCH 07/06/2017 10:55am 07/06/2017 1:11pm Body Fluid Color COLORLESS 07/06/2017 10:55am 07/06/2017 1:11pm Body Fluid Appearance SL.CLOUDY 07/06/2017 10:55am 07/06/2017 1: 11pm Body Fluid WBC 43 cells/uL 07/06/2017 10:55am 07/06/2017 1:11pm Body Fluid RBC 389 cells/uL 07/06/2017 10:55am 07/06/2017 1:11pm Body Fluid Neutrophils 25 % 07/06/2017 10:55am 07/06/2017 2:29pm Moderate Macrophages are clearly seen on this slide 1426 on 07/06/17 by Brielle Corrales Body Fluid Lymphocytes 33 % 07/06/2017 10:55am 07/06/2017 2:29pm Body Fluid Monocytes 1 % 07/06/2017 10:55am 07/06/2017 2:29pm Body Fluid Other Cells 41 % 07/06/2017 10:55am 07/06/2017 2:29pm Body Fluid Total Cells Counted 100 07/06/2017 10:55am 07/06/2017 2: 29pm Stool Occult Blood POSITIVE H NEGATIVE 07/04/2017 12:27pm 07/04/2017 1 :03pm Procedures Procedure Status Date Provider(s) Bronchoscopy with biopsy Completed 07/06/17 VIANEY DALEY MD Computed tomography of chest with contrast Active 07/05/17 VIANEY DALEY MD Encounters Encounter Location Arrival/Admit Date Discharge/Depart Date Attending Provider Discharged Inpatient [facility] 07/01/17 7:13pm 07/07/17 12:18pm PARDEEP GUZMAN MD Discharged Inpatient [facility] 06/17/17 11:45pm 9:40am PARDEEP GUZMAN MD
[2017-07-24 21:29] LABS: BASOPHILS % 0.6 % (0.0-1.0); EOSINOPHILS # (AUTO) 0.1 (0.0-0.4); HEMOGLOBIN 11.1 g/dL (12.0-16.0); LYMPHOCYTES # (AUTO) 0.8 (1.0-3.2); LYMPHOCYTES % 16.9 % (18.0-39.1); MEAN CORPUSCULAR HEMOGLOBIN 27.5 pg (28-32); MEAN CORPUSCULAR HGB CONC 31.7 g/dL (31-35); MEAN CORPUSCULAR VOLUME 86.8 fL (81-99); MONOCYTES # (AUTO) 0.4 (0.2-0.8); MONOCYTES % 7.5 % (4.4-11.3); NEUTROPHILS # (AUTO) 3.6 (2.1-6.9); NEUTROPHILS % 72.6 % (38.7-80.0); PLATELET COUNT 309 x10e3/uL (140-360); RED BLOOD COUNT 4.03 x10e6/uL (3.6-5.1); RED CELL DISTRIBUTION WIDTH 15.3 % (11.7-14.4)
[2017-07-24 21:39] LABS: INR 1.22; PROTHROMBIN TIME 14.5 seconds (11.9-14.5)
[2017-07-24 21:40] LABS: PARTIAL THROMBOPLASTIN TIME 27.9 seconds (23.8-35.5)
[2017-07-24 21:47] LABS: ALANINE AMINOTRANSFERASE 7 IU/L (0-55); ALBUMIN 3.1 g/dL (3.5-5.0); ALBUMIN/GLOBULIN RATIO 0.9 (0.8-2.0); ALKALINE PHOSPHATASE 48 IU/L (40-150); ANION GAP 13.5 mmol/L (8-16); BLOOD UREA NITROGEN 8 mg/dL (7-26); BUN/CREATININE RATIO 11 (6-25); CALCIUM 8.5 mg/dL (8.4-10.2); CARBON DIOXIDE 25 mmol/L (22-29); CHLORIDE 103 mmol/L (98-107); CREATINE KINASE 29 IU/L (29-168); CREATININE, SERUM 0.75 mg/dL (0.57-1.11); EST GLOMERULAR FILTRATION RATE > 60 ML/MIN (60-); GLUCOSE 144 mg/dL (74-118); SODIUM 139 mmol/L (136-145)
[2017-07-24 21:50] LABS: POTASSIUM 2.5 mmol/L (3.5-5.1)
[2017-07-24] MEDS ORDERED: KCL 20MEQ/.9 SOD CHL 1,000 ML IV ONE (22:00)
[2017-07-24] MEDS ORDERED: SODIUM CHLORIDE 0.9% 50ML 50 ML ONE (22:03)
[2017-07-24] MEDS ORDERED: IOPAMIDOL 370 MG/ML 200 ML INFUS..BTL INJ ONE (22:04)
--- NOTE | 2017-07-24 22:56 | Diagnostic Imaging Report ---
Examination:CT SOFT TISSUE NECK WITH CONTRAST History: Dysphagia. Fluid lodged in the esophagus. Vomiting. Comparison studies: None Technique: Axial images from the skull base to the thoracic inlet Coronal and sagittal reformatted images. Intravenous contrast: 100mL of Isovue-370. Findings: Soft tissues: There are two cutaneous and subcutaneous nodules in the bilateral submandibular regions with the largest measuring 1 cm in the left submandibular region. These lesions most probably represent inclusion cysts. Aerodigestive tract: No abnormality. Lymph nodes: No radiographically significant adenopathy. Vessels: Arteries and veins are patent. Thyroid gland: Normal in size and homogeneous. Submandibular glands: Normal in size bilaterally with mild hypoenhancement of the left gland which is likely related to increased fatty atrophy. Parotid glands: Normal in size and homogeneous. Orbits: No abnormalities. Paranasal sinuses: Clear. Temporal bones: No abnormalities. Skull base and facial bones: Intact. Cervical spine: No disc bulge or herniation or foraminal or canal stenosis. Additional findings: In the distal esophagus, there is a partially visualized soft tissue with proximal air in the cervical esophagus. IMPRESSION: 1. No abnormalities of the aerodigestive tract in the neck. 2. Bilateral submandibular cutaneous and subcutaneous presumed inclusion cysts, as above. Signed by: Dr. Sonja Jolly M.D. on 07/24/2017 10:52 PM
[2017-07-25] VITALS (9 sets, daily range): BP systolic 142–171; BP diastolic 64–77
--- NOTE | 2017-07-25 00:41 | Diagnostic Imaging Report ---
EXAM: CT CHEST WO DATE: 07/24/2017 11:05 PM INDICATION: \S\EVAL FOR IMPACTED FOOD BOLUS IN DISTAL ESOPHAGUS \S\Y COMPARISON: 07/05/2017 TECHNIQUE: Multidetector CT scanning of the chest was performed. Coronal and sagittal multiplanar reformations were obtained. IV Contrast: 0 ml Isovue 370/300 FINDINGS: LUNGS AND PLEURA: Increased size of small loculated bilateral effusions. Emphysema with areas of scarring/atelectasis. Prior right upper lobectomy. Unchanged focal approximately 2 cm right middle lobe nodular opacity and irregular 1 cm left upper lobe nodule abutting the fissure. Previously seen groundglass/consolidative opacity has resolved. Incidental calcified nodules. HEART, MEDIASTINUM, VESSELS: Stable calcified lymph nodes. There is borderline cardiomegaly with severe coronary artery, mitral annulus and aortic calcification and. Diffuse lower esophageal wall thickening with ingested material, much of which appears hyperdense. There is a 1.8 x 1.6 cm peripherally dense structure in the lower esophagus. Mild upstream esophageal dilation with fluid. UPPER ABDOMEN: Unremarkable. MUSCULOSKELETAL: Multilevel degenerative changes and right thoracotomy defect. Right subacromial/bursal calcification. IMPRESSION: 1. Thickened distal esophagus with ingested material/debris. Correlate with direct visualization. 2. Resolved bilateral groundglass/nodular opacities, likely infectious. 3. Stable right middle lobe and left upper lobe nodules which could reflect neoplasm in the setting of emphysema. 4. Increased small loculated pleural effusions. Discussed with Physician: LEONORA BUTTERFIELD MD at 12:30 AM on 07/25/2017. Signed by: Dr Bernadine Nash MD on 07/25/2017 12:37 AM
[2017-07-25] MEDS ORDERED: HEPARIN SOD (PORCINE) 5,000 UNIT/ML VIAL IV ONE (00:45)
[2017-07-25] MEDS ORDERED: ASPIRIN 300 MG SUPP PR STA (00:45)
[2017-07-25] MEDS: SODIUM CHLORIDE 0.9% 1000ML 1,000 ML IV SCH ×3 (01:03→14:51)
[2017-07-25] MEDS ORDERED: HEPARIN 25,000U/0.45% NS 250ML 250 ML ONE (01:07)
[2017-07-25] MEDS: HEPARIN 25,000U/0.45% NS 250ML 25,000 UNIT in SODIUM CHLORIDE 0.9% 250ML 0 ML IV SCH (01:20)
[2017-07-25] MEDS ORDERED: BIOTIN2500 MCG PO (02:50)
[2017-07-25] MEDS ORDERED: GLUCOSAMINE H1500 MG (02:50)
[2017-07-25] MEDS ORDERED: XYZAL5 MG PO (02:50)
[2017-07-25] MEDS ORDERED: OMEPRAZOLE40 MG PO (02:50)
[2017-07-25] MEDS ORDERED: VITAMIN B12-FO1 EACH PO (02:50)
[2017-07-25] MEDS ORDERED: BRILINTA90 MG PO (02:50)
[2017-07-25] MEDS ORDERED: LISINOPRIL2.5 MG PO (02:50)
[2017-07-25] MEDS ORDERED: VITAMIN C500 M1 (02:50)
[2017-07-25] MEDS: ONDANSETRON HCL INJ 2 MG/ML VIAL IV PRN ×2 (05:10→15:12)
[2017-07-25 07:50] LABS: BASOPHILS % 0.7 % (0.0-1.0); EOSINOPHILS # (AUTO) 0.1 (0.0-0.4); EOSINOPHILS % 2.7 % (0.0-6.0); HEMATOCRIT 32.6 % (34.2-44.1); HEMOGLOBIN 10.1 g/dL (12.0-16.0); LYMPHOCYTES # (AUTO) 0.7 (1.0-3.2); LYMPHOCYTES % 15.1 % (18.0-39.1); MEAN CORPUSCULAR VOLUME 87.2 fL (81-99); MONOCYTES # (AUTO) 0.4 (0.2-0.8); MONOCYTES % 8.7 % (4.4-11.3); NEUTROPHILS # (AUTO) 3.2 (2.1-6.9); NEUTROPHILS % 72.3 % (38.7-80.0); PLATELET COUNT 276 x10e3/uL (140-360); RED BLOOD COUNT 3.74 x10e6/uL (3.6-5.1); RED CELL DISTRIBUTION WIDTH 15.4 % (11.7-14.4)
[2017-07-25 08:01] LABS: ALBUMIN 2.7 g/dL (3.5-5.0); ALBUMIN/GLOBULIN RATIO 0.9 (0.8-2.0); ALKALINE PHOSPHATASE 49 IU/L (40-150); ANION GAP 12.8 mmol/L (8-16); BLOOD UREA NITROGEN 6 mg/dL (7-26); BUN/CREATININE RATIO 9 (6-25); CALCIUM 7.8 mg/dL (8.4-10.2); CARBON DIOXIDE 24 mmol/L (22-29); CHLORIDE 108 mmol/L (98-107); CREATININE, SERUM 0.66 mg/dL (0.57-1.11); EST GLOMERULAR FILTRATION RATE > 60 ML/MIN (60-); GLUCOSE 135 mg/dL (74-118); SODIUM 142 mmol/L (136-145)
[2017-07-25 08:02] LABS: ALANINE AMINOTRANSFERASE < 6 IU/L (0-55)
[2017-07-25 08:04] LABS: POTASSIUM 2.8 mmol/L (3.5-5.1)
[2017-07-25] MEDS ORDERED: POTASSIUM CHLORIDE 20MEQ/100ML 200 ML IV ONE ×2 (09:00→13:00)
[2017-07-25] MEDS: ASPIRIN 300 MG SUPP PR SCH (09:05)
[2017-07-25] MEDS ORDERED: PROMETHAZINE 12.5MG/ NACL 0.9% 12.5 MG/50 ML BAG IV PRN (16:00)
[2017-07-25] MEDS: FAMOTIDINE 20 MG/2 ML VIAL IV SCH (16:05)
--- NOTE | 2017-07-25 16:45 | Consultation ---
DATE OF CONSULTATION: July 25, 2017 CARDIOLOGY CONSULTATION REQUESTING PHYSICIAN: Dr. Khan. REASON FOR CONSULTATION: Recent ST-elevation myocardial infarction. HISTORY OF PRESENT ILLNESS: This is an 81-year-old woman with coronary artery disease status post recent inferior ST-elevation myocardial infarction with drug-eluting stent to the right coronary artery, peripheral arterial disease, dyslipidemia, hypertension, diabetes mellitus, chronic systolic heart failure, and COPD, who presents with complaints of inability to tolerate p.o. intake. This patient was recently discharged from [facility]. In the interim she saw her hand clerical verifier, who stopped her Xarelto and Plavix and started her on ticagrelor. Two days prior to presentation, she noted difficulty swallowing which progressively worsened such that now she can no longer tolerate oral intake. Everything she takes in, she will need to vomit back up. She denies any chest pain, shortness of breath, palpitations or edema. REVIEW OF SYSTEMS: Negative except as per HPI. PAST MEDICAL HISTORY 1. Coronary artery disease status post recent inferior ST-elevation myocardial infarction, status post right coronary artery stent. 2. Chronic systolic heart failure. 3. Peripheral arterial disease. 4. Dyslipidemia. 5. Hypertension. 6. COPD. 7. History of lung cancer. 8. History of breast cancer. 9. Venous insufficiency. 10. Recent GI bleeding. PAST SURGICAL HISTORY 1. History of esophageal dilation. 2. RCA stent. 3. Mastectomy. ALLERGIES: PLEASE SEE EMR. MEDICATIONS: Please see medication list. SOCIAL HISTORY: No tobacco, alcohol or illicit drugs. FAMILY HISTORY: Noncontributory. PHYSICAL EXAMINATION VITAL SIGNS: Temperature 97.2 degrees, pulse 77, respiratory rate 18, blood pressure 156/77, oxygen saturation 97% on 2 liters nasal cannula. GENERAL: Elderly woman, awake and alert, in no acute distress. HEENT: Normocephalic, atraumatic. Pupils equal, no scleral icterus. NECK: Supple. No thyromegaly or cervical lymphadenopathy, no carotid bruits. LUNGS: Clear to auscultation bilaterally. No wheezes or crackles. CARDIOVASCULAR: Normal rate, regular rhythm. No murmur. Normal S1 and S2. ABDOMEN: Soft, nontender. EXTREMITIES: No edema. NEURO: Nonfocal exam. LABS: WBC 4.37, hemoglobin 10.1, hematocrit 32.6, platelets 276. Sodium 141, potassium 2.8, chloride 108, CO2 24, BUN 6, creatinine 0.66. CT CHEST: Thickened distal esophagus with ingested material/debris, correlate with direct visualization. EKG: Normal sinus rhythm. Inferior infarct, age undetermined. T-wave abnormality, consider lateral ischemia. IMPRESSION 1. Esophageal stricture. 2. Coronary artery disease status post recent ST-elevation myocardial infarction, status post right coronary artery stent. 3. Chronic systolic heart failure. 4. Peripheral arterial disease. 5. Dyslipidemia. 6. Hypertension. 7. Diabetes mellitus. 8. Chronic obstructive pulmonary disease. 9. History of breast cancer. 10. History of lung cancer. 11. Venous insufficiency. 12. Anemia. RECOMMENDATIONS: Continue current cardiac medications. Specifically, patient needs to be on aspirin. Restart ticagrelor given the very recent stent. Continue with heparin drip. Heparin drip may be stopped for EGD as necessary. Watch volume status closely given her chronic systolic heart failure as she is on IV fluids due to inability to tolerate oral intake. Resume her home cardiac medications including lisinopril, metoprolol and simvastatin. Monitor on telemetry. Thank you for this consult. We will continue to follow. Job#: [id number] EV
[2017-07-25] MEDS ORDERED: LIDOCAINE HCL 2% LOCAL INJ 5 ML SDV VIAL INJ ONE (16:52)
[2017-07-25] MEDS ORDERED: PROPOFOL IV EMULSION 10 MG/ML 50 ML VIAL ONE (16:52)
[2017-07-25] MEDS: METOPROLOL TARTRATE INJ 1 MG/ML VIAL IV SCH (17:16)
[2017-07-25] MEDS: TICAGRELOR 90 MG TABLET PO SCH (21:00)
[2017-07-26] VITALS (8 sets, daily range): BP systolic 120–172; BP diastolic 59–79
[2017-07-26] MEDS: METOPROLOL TARTRATE INJ 1 MG/ML VIAL IV SCH ×4 (00:15→16:54)
[2017-07-26] MEDS: HEPARIN 25,000U/0.45% NS 250ML 25,000 UNIT in SODIUM CHLORIDE 0.9% 250ML 0 ML IV SCH (00:45)
[2017-07-26] MEDS: ONDANSETRON HCL INJ 2 MG/ML VIAL IV PRN ×4 (03:25→14:10)
[2017-07-26] MEDS: SODIUM CHLORIDE 0.9% 1000ML 1,000 ML IV SCH ×2 (03:26→19:40)
[2017-07-26 03:32] LABS: BASOPHILS % 0.8 % (0.0-1.0); EOSINOPHILS # (AUTO) 0.2 (0.0-0.4); EOSINOPHILS % 3.7 % (0.0-6.0); HEMATOCRIT 32.3 % (34.2-44.1); HEMOGLOBIN 9.9 g/dL (12.0-16.0); LYMPHOCYTES % 20.7 % (18.0-39.1); MEAN CORPUSCULAR HEMOGLOBIN 27.3 pg (28-32); MEAN CORPUSCULAR HGB CONC 30.7 g/dL (31-35); MEAN CORPUSCULAR VOLUME 89.2 fL (81-99); MONOCYTES # (AUTO) 0.4 (0.2-0.8); MONOCYTES % 7.7 % (4.4-11.3); NEUTROPHILS # (AUTO) 3.2 (2.1-6.9); NEUTROPHILS % 66.5 % (38.7-80.0); PLATELET COUNT 281 x10e3/uL (140-360); RED BLOOD COUNT 3.62 x10e6/uL (3.6-5.1); RED CELL DISTRIBUTION WIDTH 15.4 % (11.7-14.4)
[2017-07-26 03:45] LABS: ALBUMIN 2.6 g/dL (3.5-5.0); ALBUMIN/GLOBULIN RATIO 0.9 (0.8-2.0); ALKALINE PHOSPHATASE 47 IU/L (40-150); ANION GAP 13.3 mmol/L (8-16); BLOOD UREA NITROGEN 6 mg/dL (7-26); BUN/CREATININE RATIO 9 (6-25); CALCIUM 7.5 mg/dL (8.4-10.2); CARBON DIOXIDE 19 mmol/L (22-29); CHLORIDE 111 mmol/L (98-107); CREATININE, SERUM 0.65 mg/dL (0.57-1.11); EST GLOMERULAR FILTRATION RATE > 60 ML/MIN (60-); GLUCOSE 118 mg/dL (74-118); POTASSIUM 3.3 mmol/L (3.5-5.1); SODIUM 140 mmol/L (136-145)
[2017-07-26 03:52] LABS: ALANINE AMINOTRANSFERASE < 6 IU/L (0-55)
[2017-07-26] MEDS: FAMOTIDINE 20 MG/2 ML VIAL IV SCH (09:00)
[2017-07-26] MEDS: ASPIRIN 300 MG SUPP PR SCH (11:26)
[2017-07-26] MEDS: ALBUTEROL/IPRATROPIUM 3 ML NEB NEB SCH ×2 (14:35→21:00)
--- NOTE | 2017-07-26 15:27 | Diagnostic Imaging Report ---
PROCEDURE: A single AP view of the chest. COMPARISON: [facility], CT, CT CHEST W, 07/05/2017, 6:04. Patients [facility], DX, CHEST SINGLE (PORTABLE), 07/05/2017, 5:10. INDICATIONS: SHORTNESS OF BREATH FINDINGS: See impression. IMPRESSION: 1. interval increase in small bilateral pleural effusions and likely associated bilateral lower lobe atelectasis. 2. Central pulmonary venous congestion and bilateral interstitial opacities extending from the ina, consistent with interstitial pulmonary edema. 3. Cardiac silhouette is obscured. Elie Mckee M.D. Dictated by: Elie Mckee M.D. on 07/26/2017 at 15:28 Electronically approved by: Elie Mckee M.D. on 07/26/2017 at 15:28
[2017-07-26] MEDS ORDERED: PANTOPRAZOLE 40 MG 10ML VIAL IV ONE (16:15)
[2017-07-26] MEDS: PANTOPRAZOL 40MG/SOD CHL 0.9% 50 ML IV SCH ×2 (16:53→21:35)
[2017-07-26] MEDS: TICAGRELOR 90 MG TABLET PO SCH ×2 (16:53→21:35)
[2017-07-26] MEDS ORDERED: POTASSIUM CHLORIDE 20 MEQ TAB CR PO STA (17:26)
[2017-07-26] MEDS ORDERED: FUROSEMIDE INJ 10 MG/ML 2 ML VIAL IV ONE (17:30)
--- NOTE | 2017-07-26 17:30 | Operative Report ---
DATE OF PROCEDURE: July 26, 2017 REFERRING PHYSICIAN: Pardeep Guzman MD PROCEDURE PERFORMED: Esophagogastroduodenoscopy with foreign body removal from the esophagus and esophageal dilatation. INDICATIONS FOR PROCEDURE: Dysphagia to solids and liquids. MEDICATION: Patient was done under MAC. Please see anesthesiologist's note. PROCEDURE: Patient in left lateral decubitus position. Flexible fiberoptic Olympus gastroscope was introduced into the esophagus under direct visualization without any difficulty. A large food bolus was noted to be obstructing the distal esophagus. There was some patchy erythema noted above the food bolus. The bolus was removed partially per Gene forceps as well as per the polypectomy snare. The scope was then advanced into the GE junction which was strictured. That was dilated to size 48-[place]ai[place] Miles. The scope was then advanced with ease into the stomach. Mucosa overlying the antrum and the body revealed some patchy areas of erythema. Pylorus was of normal contour and shape, was intubated with ease and the scope was advanced all the way to the 2nd portion of the duodenum. The scope was then withdrawn slowly. Mucosa overlying the proximal 2nd portion and the duodenal bulb appeared to be within normal limits. The scope was then withdrawn back into the stomach and retroflexed and mucosa overlying the fundus and the cardia grossly appeared to be within normal limits. The scope was then straightened out. The stomach was decompressed. Scope subsequently withdrawn. Patient tolerated procedure well. IMPRESSION 1. Distal esophagitis. 2. Large food bolus obstructing the distal esophagus removed per the polypectomy snare and the Gene forceps. 3. Esophageal stricture at gastroesophageal junction dilated to a size 48-[place] Miles. 4. Gastritis. PLAN: Initiate full liquid diet. Start PPI therapy. Job#: [id number] DG cc:PARDEEP GUZMAN MD
[2017-07-26] MEDS ORDERED: LISINOPRIL 2.5 MG TAB PO NR (21:00)
[2017-07-26] MEDS: GABAPENTIN 100 MG CAP PO SCH (21:35)
[2017-07-26] MEDS: SIMVASTATIN 20 MG TAB PO SCH (21:35)
[2017-07-26] MEDS: SUCRALFATE 1 GM/10 ML SUSP PO SCH (22:02)
--- NOTE | 2017-07-26 23:12 | Progress Note ---
DATE: July 26, 2017 CARDIOLOGY PROGRESS NOTE SUBJECTIVE: Patient denies chest pain or shortness of breath. She is n.p.o. for EGD with esophageal dilation. OBJECTIVE: VITAL SIGNS: Temperature 99.3 degrees, pulse 90, respiratory rate 18, blood pressure 172/79, oxygen saturation 99% on room air. GENERAL: Awake, alert, in no acute distress. LUNGS: Clear to auscultation bilaterally. No wheezes or crackles. CARDIOVASCULAR: Normal rate, regular rhythm. No murmur. Normal S1, S2. ABDOMEN: Soft, nontender. EXTREMITIES: No edema. CARDIAC MEDICATIONS: 1. Lisinopril 2.5 mg p.o. daily. 2. Metoprolol succinate 25 mg p.o. daily. 3. Simvastatin 20 mg p.o. nightly. 4. Aspirin 81 mg p.o. daily. LABS: WBC 4.8, hemoglobin 9.9, hematocrit 32.3, platelets 281,000. Sodium 140, potassium 3.3, chloride 111, CO2 19, BUN 6, creatinine 0.65. IMPRESSION: 1. Esophageal stricture. 2. Coronary artery disease, status post recent ST elevation myocardial infarction, status post right coronary artery stent. 3. Chronic systolic heart failure. 4. Peripheral arterial disease. 5. Dyslipidemia. 6. Hypertension. 7. Diabetes mellitus. 8. Chronic obstructive pulmonary disease. 9. History of breast cancer. 10. History of lung cancer. 11. Venous insufficiency. 12. Anemia. RECOMMENDATIONS: Continue current cardiac medications. Patient needs to resume aspirin and ticagrelor as soon as p.o. intake is permitted. Heparin drip may be stopped after dual antiplatelet therapy is resumed. Monitor volume status closely given her chronic systolic heart failure. Home cardiac medications have otherwise been resumed. We will place the patient on telemetry while in-house. Thank you for this consult. We will continue to follow. Job#: [id number]
[2017-07-27] VITALS: BP 140/65
[2017-07-27] MEDS: ALBUTEROL/IPRATROPIUM 3 ML NEB NEB SCH ×5 (01:20→23:32)
[2017-07-27] MEDS: PANTOPRAZOL 40MG/SOD CHL 0.9% 50 ML IV SCH ×5 (02:49→23:35)
[2017-07-27 04:00] VITALS: BP 142/63
--- NOTE | 2017-07-27 06:23 | Diagnostic Imaging Report ---
CHEST SINGLE (PORTABLE), 07/27/2017 6:00 AM Technique: CHEST SINGLE (PORTABLE) Comparison: CT from 07/24/2017 Clinical history: Shortness of breath Findings: See Impression Impression: 1. Mildly enlarged cardiac silhouette, partially obscured. 2. Postsurgical changes of the right lung. Diffuse pulmonary opacities, favor edema with atelectasis and moderate pleural effusions. Underlying nodules better seen on CT. Signed by: Dr Bernadine Nash MD on 07/27/2017 6:20 AM
[2017-07-27 07:58] VITALS: BP 146/66
[2017-07-27] MEDS ORDERED: TICAGRELOR 90 MG TABLET PO SCH (09:00)
[2017-07-27] MEDS ORDERED: METOPROLOL SUCCINATE 25 MG TAB XL PO SCH (09:00)
[2017-07-27] MEDS: SUCRALFATE 1 GM/10 ML SUSP PO SCH ×4 (10:14→20:33)
[2017-07-27] MEDS: TICAGRELOR 90 MG TABLET PO SCH ×2 (10:14→20:33)
[2017-07-27] MEDS: ASPIRIN 81 MG CHEW TAB PO SCH (10:14)
[2017-07-27] MEDS: LISINOPRIL 2.5 MG TAB PO SCH (10:15)
[2017-07-27] MEDS ORDERED: METOPROLOL TARTRATE INJ 1 MG/ML VIAL IV ONE (11:00)
[2017-07-27] MEDS ORDERED: METOPROLOL TARTRATE INJ 1 MG/ML VIAL IV PRN (11:00)
[2017-07-27] MEDS ORDERED: ONDANSETRON HCL 4 MG ORAL DISINTEGRATING TAB PO PRN (11:15)
--- NOTE | 2017-07-27 13:10 | Progress Note ---
DATE: July 27, 2017 CARDIOLOGY PROGRESS NOTE SUBJECTIVE: Patient denies chest pain or shortness of breath. She had esophageal dilatation by GI yesterday. However she converted to atrial fibrillation with rapid ventricular response this morning with heart rates in the 140s to 150s. OBJECTIVE VITAL SIGNS: Temperature 98.3 degrees, pulse 114, respiratory rate 18, blood pressure 164/82, oxygen saturation 100% on 2 liters nasal cannula. GENERAL: Awake, alert, in no acute distress. LUNGS: Clear to auscultation bilaterally. No wheezes or crackles. CARDIOVASCULAR: Normal rate, regular rhythm. No murmur. Normal S1, S2. ABDOMEN: Soft, nontender. EXTREMITIES: No edema. CARDIAC MEDICATIONS 1. Metoprolol succinate 25 mg p.o. daily. 2. Aspirin 81 mg p.o. daily. 3. Lisinopril 2.5 p.o. daily. 4. Simvastatin 20 mg p.o. nightly. LABS: None today. CHEST X-RAY: Mildly enlarged cardiac silhouette, partially obscured, post surgical changes of the right lung, diffuse pulmonary opacities, fair edema with atelectasis and moderate pleural effusions. Underlying nodules better seen on CT. TELEMETRY: Atrial fibrillation with rapid ventricular response. IMPRESSION 1. Atrial fibrillation with rapid ventricular response newly diagnosed. 2. Coronary artery disease status post recent ST elevation myocardial infarction status post right coronary artery stent. 3. Esophageal stricture status post esophageal dilatation. 4. Chronic systolic heart failure. 5. Peripheral arterial disease. 6. Dyslipidemia. 7. Hypertension. 8. Diabetes mellitus. 9. Chronic obstructive pulmonary disease. 10. History of breast cancer. 11. History of lung cancer. 12. Venous insufficiency. 13. Anemia. RECOMMENDATIONS: Check a BMP and TSH. Titrate up metoprolol succinate. Resume aspirin. Given patient's newly diagnosed atrial fibrillation, we will need to start anticoagulation. We will therefore change ticagrelor back to Plavix. Continue monitoring patient on telemetry. Thank you for this consult. We will continue to follow. Job#: [id number] JANNET
[2017-07-27 16:42] VITALS: BP 126/73
[2017-07-27] MEDS: APIXABAN 5 MG TABLET PO SCH (17:19)
[2017-07-27] MEDS: METOPROLOL SUCCINATE 25 MG TAB XL PO SCH (17:19)
[2017-07-27] MEDS: FUROSEMIDE INJ 10 MG/ML 4 ML VIAL IV SCH (18:37)
[2017-07-27] MEDS ORDERED: IPRATROPIUM BROMIDE 0.02% 2.5 ML NEB NEB SCH (19:00)
[2017-07-27 20:00] VITALS: BP 132/62
[2017-07-27] MEDS: SIMVASTATIN 20 MG TAB PO SCH (20:33)
[2017-07-27] MEDS: GABAPENTIN 100 MG CAP PO SCH (20:33)
[2017-07-27 20:35] VITALS: BP 132/62
[2017-07-28] VITALS: BP 112/55
[2017-07-28 04:00] VITALS: BP 126/60
[2017-07-28] MEDS: PANTOPRAZOL 40MG/SOD CHL 0.9% 50 ML IV SCH ×3 (04:30→13:39)
[2017-07-28 07:20] LABS: BASOPHILS % 0.6 % (0.0-1.0); EOSINOPHILS # (AUTO) 0.3 (0.0-0.4); EOSINOPHILS % 5.5 % (0.0-6.0); HEMATOCRIT 30.7 % (34.2-44.1); HEMOGLOBIN 9.8 g/dL (12.0-16.0); LYMPHOCYTES # (AUTO) 0.7 (1.0-3.2); LYMPHOCYTES % 13.3 % (18.0-39.1); MEAN CORPUSCULAR HEMOGLOBIN 27.5 pg (28-32); MEAN CORPUSCULAR HGB CONC 31.9 g/dL (31-35); MEAN CORPUSCULAR VOLUME 86.2 fL (81-99); MONOCYTES # (AUTO) 0.4 (0.2-0.8); MONOCYTES % 8.6 % (4.4-11.3); NEUTROPHILS # (AUTO) 3.5 (2.1-6.9); NEUTROPHILS % 71.4 % (38.7-80.0); PLATELET COUNT 252 x10e3/uL (140-360); RED BLOOD COUNT 3.56 x10e6/uL (3.6-5.1); RED CELL DISTRIBUTION WIDTH 15.8 % (11.7-14.4)
[2017-07-28 07:35] LABS: ANION GAP 10.7 mmol/L (8-16); BLOOD UREA NITROGEN 5 mg/dL (7-26); BUN/CREATININE RATIO 7 (6-25); CALCIUM 8.1 mg/dL (8.4-10.2); CARBON DIOXIDE 28 mmol/L (22-29); CHLORIDE 108 mmol/L (98-107); CREATININE, SERUM 0.72 mg/dL (0.57-1.11); EST GLOMERULAR FILTRATION RATE > 60 ML/MIN (60-); GLUCOSE 147 mg/dL (74-118); MAGNESIUM 1.2 MG/DL (1.3-2.1); SODIUM 144 mmol/L (136-145)
[2017-07-28 07:36] LABS: POTASSIUM 2.7 mmol/L (3.5-5.1)
[2017-07-28] MEDS ORDERED: POTASSIUM CHLORIDE 20 MEQ TAB CR PO STA ×2 (07:39→16:02)
[2017-07-28 07:40] VITALS: BP 126/60
[2017-07-28] MEDS ORDERED: MAGNESIUM SULFATE 2GM/50ML 50 ML IV ONE (07:45)
[2017-07-28 08:01] VITALS: BP 125/62
[2017-07-28] MEDS: SUCRALFATE 1 GM/10 ML SUSP PO SCH ×3 (08:42→16:32)
[2017-07-28] MEDS: METOPROLOL SUCCINATE 25 MG TAB XL PO SCH ×2 (08:43→16:32)
[2017-07-28] MEDS: APIXABAN 5 MG TABLET PO SCH ×2 (08:43→16:32)
[2017-07-28] MEDS: ASPIRIN 81 MG CHEW TAB PO SCH (08:43)
[2017-07-28] MEDS: LISINOPRIL 2.5 MG TAB PO SCH (08:43)
[2017-07-28] MEDS: FUROSEMIDE INJ 10 MG/ML 4 ML VIAL IV SCH ×2 (08:43→16:32)
[2017-07-28] MEDS ORDERED: CLOPIDOGREL BISULFATE 75 MG TAB PO SCH (09:00)
[2017-07-28] MEDS ORDERED: POTASSIUM CHLORIDE 20 MEQ TAB CR PO SCH ×2 (10:00)
[2017-07-28 11:46] VITALS: BP 104/52
[2017-07-28] MEDS ORDERED: GLUCAGON FOR INJ 1 MG VIAL IV ONE (13:30)
[2017-07-28 13:31] LABS: MAGNESIUM 1.6 MG/DL (1.3-2.1); POTASSIUM 3.4 mmol/L (3.5-5.1)
--- NOTE | 2017-07-28 14:34 | Progress Note ---
DATE: July 28, 2017 CARDIOLOGY PROGRESS NOTE SUBJECTIVE: Patient denies chest pain or shortness of breath. Extensive discussion was held with the patient and her family regarding her indication for anticoagulation in the setting of atrial fibrillation as well as antiplatelet therapy given her recent ST-elevation myocardial infarction. OBJECTIVE VITAL SIGNS: Temperature 97.9 degrees, pulse 71, respiratory rate 20, blood pressure 104/52, oxygen saturation 100% on 2 L nasal cannula. GENERAL: Awake, alert, in no acute distress. LUNGS: Clear to auscultation bilaterally. No wheezes or crackles. CARDIOVASCULAR: Normal rate, regular rhythm. No murmur. Normal S1, S2. ABDOMEN: Soft, nontender. EXTREMITIES: No edema. CARDIAC MEDICATIONS 1. Apixaban 5 mg p.o. b.i.d. 2. Plavix 75 mg p.o. daily. 3. Lasix 20 mg IV b.i.d. 4. Metoprolol succinate 25 mg p.o. b.i.d. 5. Lisinopril 2.5 mg p.o. daily. 6. Aspirin 81 mg p.o. daily. 7. Simvastatin 20 mg p.o. nightly. LABS: WBC 4.88, hemoglobin 9.8, hematocrit 30.7, platelets 252. Sodium 144, potassium 2.7, chloride 108, CO2 28, BUN 5, creatinine 0.72. TELEMETRY: Normal sinus rhythm. IMPRESSION 1. Atrial fibrillation with rapid ventricular response, now sinus rhythm. 2. Coronary artery disease status post recent ST-elevation myocardial infarction, status post right coronary artery stent. 3. Esophageal stricture, status post esophageal dilatation. 4. Chronic systolic heart failure. 5. Peripheral arterial disease. 6. Dyslipidemia. 7. Hypertension. 8. Diabetes mellitus. 9. Chronic obstructive pulmonary disease. 10. History of breast cancer. 11. History of lung cancer. 12. Venous insufficiency. 13. Anemia. RECOMMENDATIONS: Given the patient's indication for dual antiplatelet therapy and anticoagulation, the patient is now on aspirin, Plavix and Eliquis. Risks and benefits of these medications were discussed with the patient and her family, who expressed an understanding. The patient's outpatient poultry buyer, Dr. Zhong, was updated as to her new diagnosis of atrial fibrillation as well. Continue current cardiac medications. Continue monitoring the patient on telemetry. Thank you for this consult. We will continue to follow. Job#: [id number] MH
[2017-07-28 16:13] VITALS: BP 114/58
[2017-07-28] MEDS ORDERED: LASIX20 MG PO (17:54)
== END 2017-07-28 18:25 | disposition home or self-care (01) | DRG 394 ==
LOC: ER 19:45 → ERHOLD 07-25 01:33 → MED/SURG 07-25 01:38
PROVIDERS: ADMIT Internal Medicine; ATTEND Internal Medicine
PROC: 0DC58ZZ Extirpation of Matter from Esophagus, Via Natural or Artificial Opening Endoscopic (ICD-10-PCS; principal; 2017-07-26 15:00)
PROC: 0D738ZZ Dilation of Lower Esophagus, Via Natural or Artificial Opening Endoscopic (ICD-10-PCS; principal; 2017-07-26 15:00)
DX: T18.128A Food in esophagus causing other injury, initial encounter (principal); J96.10 Chronic respiratory failure, unspecified whether with hypoxia or hypercapnia; I50.22 Chronic systolic (congestive) heart failure; I11.0 Hypertensive heart disease with heart failure; I48.0 Paroxysmal atrial fibrillation; K22.2 Esophageal obstruction; J44.9 Chronic obstructive pulmonary disease, unspecified; I73.9 Peripheral vascular disease, unspecified; K29.70 Gastritis, unspecified, without bleeding; K21.0 Gastro-esophageal reflux disease with esophagitis; I25.10 Atherosclerotic heart disease of native coronary artery without angina pectoris; I25.2 Old myocardial infarction; Z95.5 Presence of coronary angioplasty implant and graft; E78.5 Hyperlipidemia, unspecified; I87.2 Venous insufficiency (chronic) (peripheral); Z85.3 Personal history of malignant neoplasm of breast; Z85.118 Personal history of other malignant neoplasm of bronchus and lung; E87.6 Hypokalemia; E78.1 Pure hyperglyceridemia; D50.9 Iron deficiency anemia, unspecified; Z79.82 Long term (current) use of aspirin
CPT/HCPCS: 36415; 43235; 43450; 70491; 71045; 71250; 80048; 80053; 82550; 82553; 82948; 83735; 83880; 84132; 84443; 84484; 85025; 85610; 85730; 93005; 94640; 96360; 99284; J1610; J1644; J1940; J2001; J2405; J2550; J3480; J7030; Q9967

== ENCOUNTER 2019-07-11 13:53 | Observation (INO) | payer MEDICARE ==
[~2019-07-11] VITALS: Ht 157.5 cm; Wt 70.8 kg
[~2019-07-11 13:53] MED LIST changes: +BIOTIN2500 MCG PO; +BRILINTA90 MG PO; +GLUCOSAMINE H1500 MG; +LASIX20 MG PO; +LISINOPRIL2.5 MG PO; +OMEPRAZOLE40 MG PO; +VITAMIN B12-FO1 EACH PO; +VITAMIN C500 M1; +XYZAL5 MG PO
[2019-07-11] MEDS ORDERED: GLUCAGON FOR INJ 1 MG VIAL IV ONE (14:00)
[2019-07-11] MEDS ORDERED: PANTOPRAZOLE 40 MG 10ML VIAL IV STA (14:02)
[2019-07-11] MEDS ORDERED: SODIUM CHLORIDE 0.9% 500ML 500 ML IV ONE (14:15)
[2019-07-11] MEDS ORDERED: SODIUM CHLORIDE 0.9% 1000ML 1,000 ML IV SCH (14:50)
[2019-07-11] MEDS ORDERED: MORPHINE SULFATE 2 MG/ML SYR 1ML IV PRN (15:00)
[2019-07-11] MEDS ORDERED: ONDANSETRON HCL INJ 2MG/ML 2ML 2 MG/ML VIAL IV PRN (15:00)
[2019-07-11] MEDS ORDERED: LORATADINE 10 MG TAB PO PRN (16:00)
[2019-07-11] MEDS ORDERED: ALBUTEROL/IPRATROPIUM 3 ML NEB ONE (17:13)
--- NOTE | 2019-07-11 17:23 | History and Physical ---
PRIMARY CARE DOCTOR: Dr. Ubaldo Foley. CHIEF COMPLAINT: Food getting stuck in her chest. HISTORY OF PRESENT ILLNESS: The patient presented with dysphagia for two days now, she did not want to come. This happened after she ate a piece of chicken. The patient was here almost two years ago for the same. At that time, the patient's esophagus was dilated. The patient denies chest pain. No shortness of breath. No nausea or vomiting. No fever or chills. No cough. PAST MEDICAL AND SURGICAL HISTORY: 1. Hypertension. 2. Coronary artery disease. 3. Lungs cancer. 4. Throat cancer. 5. Previous esophageal stricture needing dilation. 6. CHF with EF of 35%. 7. Iron deficiency anemia. 8. Peripheral vascular disease. 9. COPD. 10. Diabetes. MEDICATIONS: Please see medication reconciliation form. ALLERGIES: PENICILLIN AND TRAMADOL. SOCIAL HISTORY: Quit smoking. FAMILY HISTORY: Significant for hypertension and coronary artery disease. PHYSICAL EXAMINATION: VITAL SIGNS: Temperature 97.5, pulse 100, respiratory rate 18, blood pressure 133/71. GENERAL: No acute distress. SKIN: No rash. HEENT: Anicteric. Oropharynx is clear. LUNGS: Clear. HEART: Regular rate and rhythm. Normal S1, S2. ABDOMEN: Soft, nondistended. : Deferred. MUSCULOSKELETAL: Painless range of motion. NEUROLOGIC: Alert and oriented x3. Cranial nerves 2 through 12 grossly intact. PSYCHIATRIC: No hallucination. LABORATORY DATA: Still pending. ASSESSMENT AND PLAN: 1. Dysphagia. Awaiting for GI evaluation and esophageal dilation. At this time, I will keep her on clear liquid diet. 2. Congestive heart failure with coronary artery disease. We will continue her home medicine. 3. Diabetes. We will put her on sliding scale. 4. Gastrointestinal/deep vein thrombosis prophylaxis. No chemical deep vein thrombosis prophylaxis due to planned procedure. MD VIDHYA Andrew/ADAN /[id number] cc: [facility] YUSRA
[2019-07-11] MEDS: SUCRALFATE 1 GM/10 ML SUSP PO SCH ×2 (18:08→21:00)
[2019-07-11] MEDS: PANTOPRAZOLE SOD 40 MG TABEC PO SCH (18:08)
--- NOTE | 2019-07-11 19:01 | NUR ---
Noted infiltration to TUTU piv, removed iv, gauze and coban applied.
--- NOTE | 2019-07-11 19:10 | NUR ---
RECEIVED REPORT FROM JAVIER PT RESTING, VITAL SIGNS STABLE, PT VOICES NO COMPLAINTS AT THIS TIME, PT AWARE OF POC
[2019-07-11] MEDS ORDERED: IBUPROFEN 400 MG TAB PO PRN (20:30)
[2019-07-11 20:56] VITALS: BP 117/61
[2019-07-11 20:59] VITALS: BP 117/61
[2019-07-11] MEDS: GABAPENTIN 100 MG CAP PO SCH (21:00)
[2019-07-11] MEDS: SIMVASTATIN 20 MG TAB PO SCH (21:00)
[2019-07-11 21:28] LABS: BASOPHILS # (AUTO) 0.1 (0.0-0.1); BASOPHILS % 0.6 % (0.0-1.0); EOSINOPHILS # (AUTO) 0.1 (0.0-0.4); EOSINOPHILS % 1.5 % (0.0-6.0); HEMATOCRIT 40.9 % (34.2-44.1); HEMOGLOBIN 13.3 g/dL (12.0-16.0); LYMPHOCYTES # (AUTO) 1.7 (1.0-3.2); LYMPHOCYTES % 19.1 % (18.0-39.1); MEAN CORPUSCULAR HEMOGLOBIN 30.6 pg (28-32); MEAN CORPUSCULAR HGB CONC 32.5 g/dL (31-35); MONOCYTES # (AUTO) 0.8 (0.2-0.8); MONOCYTES % 8.4 % (4.4-11.3); NEUTROPHILS # (AUTO) 6.4 (2.1-6.9); PLATELET COUNT 252 x10e3/uL (140-360); RED BLOOD COUNT 4.35 x10e6/uL (3.6-5.1); RED CELL DISTRIBUTION WIDTH 13.8 % (11.7-14.4)
[2019-07-11 21:39] LABS: INR 1.21; PROTHROMBIN TIME 16.1 seconds (11.9-14.5)
[2019-07-11 21:40] LABS: PARTIAL THROMBOPLASTIN TIME 30.9 seconds (23.8-35.5)
[2019-07-11 21:55] LABS: ALBUMIN 3.7 g/dL (3.5-5.0); ALBUMIN/GLOBULIN RATIO 1.3 (0.8-2.0); ANION GAP 15.9 mmol/L (8-16); CALCIUM 9.4 mg/dL (8.4-10.2); CREATININE, SERUM 1.29 mg/dL (0.57-1.11); POTASSIUM 3.9 mmol/L (3.5-5.1)
[2019-07-11] MEDS: BUDESONIDE/FORMOTEROL FUMARATE 80/4.5MCG 6.9 GM INH AEROSOL IH SCH (22:36)
[2019-07-12] VITALS (9 sets, daily range): BP systolic 95–117; BP diastolic 49–61
--- NOTE | 2019-07-12 01:10 | NUR ---
LATE [id number]. LIU NOTIFED OF PATIENTS ABNORMAL GFR-39 ELEVATED CREATINE- 1.29 AND ELEVATED BUN-29. ASKED IF STILL OK TO PLACE PICC LINE AND WAS TOLD YES AND AFTER INSERTION TO BEGIN IVF AT 125CC/HR.
[2019-07-12] MEDS ORDERED: 1/2 NS IV SCH (01:15)
--- NOTE | 2019-07-12 02:24 | Diagnostic Imaging Report ---
EXAMINATION: CHEST X-RAY LINE PLACEMENT COMPARISON: Chest x-ray 07/27/2017 INDICATION: PICC line placement ^PICC PLACED ^Y DISCUSSION: Frontal view of the chest obtained at 0207 hours. HEART AND MEDIASTINUM: Stable cardiomegaly. There are calcifications of the mitral valve and aortic arch LINES: Right PICC line terminates in the SVC without pneumothorax LUNGS: Stable surgical clips in the right hilum. Diffuse hyperinflation suggestive of small airways disease. No mass or infiltrate. No interstitial edema. PLEURA: No pleural effusion or pneumothorax. BONES AND SOFT TISSUES: Diffuse demineralization. Degenerative changes of the spine and shoulders. The soft tissues are normal. IMPRESSION: Right PICC line terminates in the SVC without pneumothorax. Pulmonary hyperinflation suggestive of COPD. Stable postoperative changes of the right lung. Signed by: Dr. Susan Arechiga MD on 07/12/2019 2:21 AM
[2019-07-12] MEDS: SODIUM CHLORIDE 0.45% 1,000 ML IV SCH ×2 (04:59→13:28)
[2019-07-12] MEDS: BUDESONIDE/FORMOTEROL FUMARATE 80/4.5MCG 6.9 GM INH AEROSOL IH SCH ×2 (07:05→19:15)
[2019-07-12 07:25] LABS: BASOPHILS % 0.4 % (0.0-1.0); EOSINOPHILS # (AUTO) 0.2 (0.0-0.4); EOSINOPHILS % 3.1 % (0.0-6.0); HEMATOCRIT 35.2 % (34.2-44.1); HEMOGLOBIN 11.5 g/dL (12.0-16.0); LYMPHOCYTES # (AUTO) 1.6 (1.0-3.2); LYMPHOCYTES % 22.4 % (18.0-39.1); MEAN CORPUSCULAR HEMOGLOBIN 30.3 pg (28-32); MEAN CORPUSCULAR HGB CONC 32.7 g/dL (31-35); MEAN CORPUSCULAR VOLUME 92.9 fL (81-99); MONOCYTES # (AUTO) 0.7 (0.2-0.8); MONOCYTES % 9.5 % (4.4-11.3); NEUTROPHILS # (AUTO) 4.5 (2.1-6.9); NEUTROPHILS % 64.2 % (38.7-80.0); PLATELET COUNT 219 x10e3/uL (140-360); RED BLOOD COUNT 3.79 x10e6/uL (3.6-5.1); RED CELL DISTRIBUTION WIDTH 13.9 % (11.7-14.4)
[2019-07-12] MEDS: PANTOPRAZOLE SOD 40 MG TABEC PO SCH ×2 (07:30→16:49)
[2019-07-12] MEDS: SUCRALFATE 1 GM/10 ML SUSP PO SCH ×4 (07:30→21:17)
[2019-07-12 07:43] LABS: ALBUMIN 3.3 g/dL (3.5-5.0); ALBUMIN/GLOBULIN RATIO 1.3 (0.8-2.0); ANION GAP 12.4 mmol/L (8-16); CALCIUM 8.5 mg/dL (8.4-10.2); CREATININE, SERUM 1.04 mg/dL (0.57-1.11); POTASSIUM 3.4 mmol/L (3.5-5.1)
--- NOTE | 2019-07-12 08:50 | NUR ---
Notified of low potassium 3.4. See orders.
[2019-07-12] MEDS: METOPROLOL SUCCINATE 25 MG TAB XL PO SCH (09:00)
[2019-07-12] MEDS: LISINOPRIL 2.5 MG TAB PO SCH (09:00)
[2019-07-12] MEDS ORDERED: SODIUM CHLORIDE 0.9% IV ONE (09:30)
[2019-07-12] MEDS ORDERED: POTASSIUM CHLORIDE IV ONE (09:30)
[2019-07-12] MEDS ORDERED: POTASSIUM CHLORIDE 20 MEQ TAB CR PO STA (14:00)
[2019-07-12] MEDS ORDERED: PROPOFOL IV EMULSION 10 MG/ML 20 ML VIAL ONE (15:14)
[2019-07-12] MEDS ORDERED: LIDOCAINE HCL 2% LOCAL INJ 5 ML SDV VIAL INJ ONE (15:14)
--- NOTE | 2019-07-12 16:13 | NUR ---
Nutrition Screen Note RD Recommendation for Physician: -Advance to cardiac diet when medically appropriate Plan of Care: RD following, monitoring for tolerance and adequacy Nutrition reason for involvement: Nutrition Risk Trigger MST 5 Primary Diagnose(s):esophageal foreign body, esophageal stricture PMH: HTN, coronary artery disease, lung cancer, previous esophageal stricture, CHF, iron deficiency anemia, PVD, COPD, diabetes Ht: 62 in Wt:156 lb BMI: 28.5 kg/m2 IBW:[address] Assessment: (Date) Chart reviewed. Labs and meds reviewed. Pt is an 83 year old female admitted with esophageal foreign body and esophageal stricture. Pt was NPO at time of visit and is now on a full liquid diet. Pt reports she usually has a good appetite but was unable to quantify amount she usually consumes. Pt was unsure of any recent weight changes and declared she usually weighs 150 lbs. Pt currently has a weight of 156 lbs in chart. No N/V/D/C reported at this time. Will continue to monitor. Current Diet: full liquid Malnutrition Evaluation (07/12/19) The patient does not meet criteria for a specified degree of malnutrition at this time. Will re-evaluate at follow-up as appropriate. Diet Education Needs Assessment: Diet education not indicated Nutrition Care Level: low Signed: Eliana Rosado, RD, LD
[2019-07-12] MEDS: ASPIRIN 81 MG CHEW TAB PO SCH (16:48)
[2019-07-12] MEDS: FUROSEMIDE 20 MG TAB PO SCH (16:49)
[2019-07-12] MEDS ORDERED: GLUCAGON FOR INJ 1 MG VIAL ONE (17:27)
--- NOTE | 2019-07-12 19:03 | Operative Report ---
DATE OF PROCEDURE: 07/12/2019 SURGEON: Lanre Crowley MD An EGD with foreign body removal, esophageal dilatation and biopsies. INDICATIONS FOR PROCEDURE: Dysphagia to solids. MEDICATIONS: The patient was done under MAC. Please see anesthesiologist's note. PROCEDURE IN DETAIL: With the patient in left lateral decubitus position, a flexible fiberoptic Olympus gastroscope was introduced into the esophagus under direct visualization without any difficulty. A large bolus of food was noted to be stuck in the distal esophagus and that was removed per the polypectomy snare. The scope was then reintroduced into the esophagus and there was some patchy erythema noted in distal esophagus. A mild stricture was noted at the GE junction that was dilated to size 52-[place] Miles. The scope was then advanced with ease into the stomach. Mucosa overlying the antrum and the body revealed some patchy intense erythema and [id number] edema, and biopsies were obtained, sent to stain for H. pylori. Pylorus was of normal contour and shape was intubated with ease and the scope was advanced all the way to the second portion of the duodenum. Mucosa overlying the proximal second portion and duodenal bulb appeared to be within normal limits. The scope was then withdrawn back into the stomach and retroflexed. Mucosa overlying the fundus and cardia appeared to be within normal limits. The scope was then straightened out, it was subsequently withdrawn. The patient tolerated the procedure well. IMPRESSION: 1. Distal esophagitis, mild. 2. Large food bolus lodged in distal esophagus removed per polypectomy snare. 3. Esophageal stricture GE junction, dilated to size 52-[place] Miles. 4. Gastritis, biopsied. Biopsies sent to stain for H. pylori. PLAN: Follow up histology. Initiate Protonix 40 mg one p.o. before meal b.i.d. Lanre Crowley MD [facility] [place] [facility] [place] /[id number] cc: Jovani Khan MD
--- NOTE | 2019-07-12 19:08 | NUR ---
Report given to oncoming nurse at bedside. AAOx3. Resting in bed. Bed alarm on, bed locked and in low position. Non skid socks, possessions and call light within reach. 1/2 NS at 75ml/hr via PICC line. No signs of infiltration.
[2019-07-12] MEDS: GABAPENTIN 100 MG CAP PO SCH (21:17)
[2019-07-12] MEDS: SIMVASTATIN 20 MG TAB PO SCH (21:17)
[2019-07-13 00:31] VITALS: BP 108/62
[2019-07-13 04:00] VITALS: BP 102/78
[2019-07-13] MEDS: SODIUM CHLORIDE 0.45% 1,000 ML IV SCH ×2 (06:23→09:54)
--- NOTE | 2019-07-13 07:00 | NUR ---
BESIDE SHIFT REPORT RECEIVED FROM SPECIAL DELIVERY MAIL CARRIER NURSE. PT DENIES NEEDS AT THIS TIME.
[2019-07-13] MEDS: BUDESONIDE/FORMOTEROL FUMARATE 80/4.5MCG 6.9 GM INH AEROSOL IH SCH (07:30)
[2019-07-13] MEDS: SUCRALFATE 1 GM/10 ML SUSP PO SCH ×2 (07:47→12:44)
[2019-07-13] MEDS: PANTOPRAZOLE SOD 40 MG TABEC PO SCH (07:47)
[2019-07-13 07:55] VITALS: BP 153/80
[2019-07-13 08:27] VITALS: BP 153/80
[2019-07-13] MEDS: METOPROLOL SUCCINATE 25 MG TAB XL PO SCH (09:43)
[2019-07-13] MEDS: LISINOPRIL 2.5 MG TAB PO SCH (09:43)
[2019-07-13] MEDS: FUROSEMIDE 20 MG TAB PO SCH (09:43)
[2019-07-13] MEDS: ASPIRIN 81 MG CHEW TAB PO SCH (09:43)
[2019-07-13 11:35] VITALS: BP 142/81
--- NOTE | 2019-07-13 13:55 | Discharge Summary ---
PRIMARY CARE DOCTOR: Dr. Ubaldo Foley. FINAL DIAGNOSES: 1. Dysphagia with foreign body, food bolus in esophagus. 2. Esophageal stricture. CONSULTANTS: Dr. Crowley, GI. PROCEDURES AND STUDIES PERFORMED: 1. PICC line placement due to poor access. 2. EGD with food bolus retrieval an esophageal stricture and dilation. HISTORY: Per H and P. HOSPITAL COURSE: The patient underwent an EGD. Food bolus was retrieved. Esophageal stricture was dilated. Currently, the patient is tolerating p.o. The patient was seen and examined today. The patient will follow up with her primary care doctor in one week, will follow up with Dr. Crowley in two weeks for biopsy results. The patient will go home on Protonix 40 mg twice a day and Carafate. CONDITION ON DISCHARGE: Improved. DISCHARGE MEDICATIONS: Please see medication reconciliation form. Again, the patient was seen and examined today. [facility] MD VIDHYA Ramírez/ADAN /[id number]
--- NOTE | 2019-07-13 14:14 | NUR ---
PICC LINE DC'D WITH TIP INTACT AT 37CM. PRESSURE HELD FOR 5 MINS. DRESSING PLACED. PT TOLERATED WELL.
[2019-07-13 16:00] VITALS: BP 133/66
== END 2019-07-13 14:35 | disposition home or self-care (01) ==
LOC: ER 13:53 → ERHOLD 14:50 → MED/SURG2 20:23
PROVIDERS: ADMIT Internal Medicine; ATTEND Internal Medicine
DX: T18.128A Food in esophagus causing other injury, initial encounter (principal); K22.2 Esophageal obstruction; I25.10 Atherosclerotic heart disease of native coronary artery without angina pectoris; J44.9 Chronic obstructive pulmonary disease, unspecified; K20.9 Esophagitis, unspecified; K29.70 Gastritis, unspecified, without bleeding; Z85.3 Personal history of malignant neoplasm of breast; Z85.118 Personal history of other malignant neoplasm of bronchus and lung; I73.9 Peripheral vascular disease, unspecified; D50.9 Iron deficiency anemia, unspecified; Z08 Encounter for follow-up examination after completed treatment for malignant neoplasm; Z85.01 Personal history of malignant neoplasm of esophagus; E11.9 Type 2 diabetes mellitus without complications; I11.0 Hypertensive heart disease with heart failure; I50.9 Heart failure, unspecified
CPT/HCPCS: 36415 ×2; 36569; 43239; 43247; 43248; 80053 ×2; 82550; 82553; 82948; 84484; 85025 ×2; 85610; 85730; 88305; 88312; 93005; 96361; 99284; C9113; G0378 ×3; J1610; J2001; J2704; J3480; J7030; J7050; S0164 ×3; 43450

== ENCOUNTER → 2021-08-12 | Day surgery (SDC) | payer MEDICARE ==
[~2021-08-12] MED LIST changes: +CETIRIZINE HCL10 MG PO; +ELIQUIS5 MG PO; +EYE HEALTH COMPLEX PO; +LIDOCAINE HCL 2% LOCAL INJ 5 ML SDV VIAL INJ ONE; +LISINOPRIL-HCT1 EAC2 PO; +LORAZEPAM2 MG/1 M1 PO; +OSTEO BI-FLEX1 EACH PO; +PROPOFOL IV EMULSION 10 MG/ML 20 ML VIAL ONE; +TIMOPTIC 0.25%1 EACH OU; +TYLENOL EXTRA500 MG PO; +VENOFER100 MG/5 M PO; +VITAMIN B COMP1 EACH PO; +VITAMIN D310 MCG PO; +VITAMIN E1000 UNI1 PO; +[UNRECOGNIZED DRUG - OTHER] PO
[2021-08-12 08:50] VITALS: BP 147/62
== END | disposition home or self-care (01) ==
LOC: ENDO 06:03
PROVIDERS: ATTEND Internal Medicine Gastroenterology
DX: K22.2 Esophageal obstruction (principal); K31.7 Polyp of stomach and duodenum; K29.70 Gastritis, unspecified, without bleeding; K20.90 Esophagitis, unspecified without bleeding; K21.9 Gastro-esophageal reflux disease without esophagitis; R53.1 Weakness; J44.9 Chronic obstructive pulmonary disease, unspecified; I25.10 Atherosclerotic heart disease of native coronary artery without angina pectoris; I25.2 Old myocardial infarction; I10 Essential (primary) hypertension; E78.5 Hyperlipidemia, unspecified; I48.91 Unspecified atrial fibrillation; I71.4 Abdominal aortic aneurysm, without rupture; M06.9 Rheumatoid arthritis, unspecified; M19.90 Unspecified osteoarthritis, unspecified site; F41.9 Anxiety disorder, unspecified; E11.9 Type 2 diabetes mellitus without complications; Z88.6 Allergy status to analgesic agent; Z88.0 Allergy status to penicillin; Z88.8 Allergy status to other drugs, medicaments and biological substances; Z79.02 Long term (current) use of antithrombotics/antiplatelets; Z79.899 Other long term (current) drug therapy
CPT/HCPCS: 36415; 43235; 43450; 82948; J2001; J2704

== ENCOUNTER 2022-03-11 15:33 | Emergency (ER) | payer MEDICARE ==
[~2022-03-11] VITALS: Ht 157.5 cm; Wt 70.8 kg
[~2022-03-11 15:33] MED LIST changes: +DONEPEZIL HCL10 MG PO; +FUROSEMIDE40 MG PO; -LIDOCAINE HCL 2% LOCAL INJ 5 ML SDV VIAL INJ ONE; +LISINOPRIL10 MG PO; -PROPOFOL IV EMULSION 10 MG/ML 20 ML VIAL ONE; +TRAZODONE HCL100 MG PO
[2022-03-11] MEDS ORDERED: SODIUM CHLORIDE 0.9% 1000ML 1,000 ML IV ONE (16:00)
[2022-03-11] MEDS ORDERED: ONDANSETRON HCL INJ 2MG/ML 2ML 2 MG/ML VIAL IV PRN (16:00)
[2022-03-11 16:03] LABS: BASOPHILS % 0.7 % (0.0-1.0); EOSINOPHILS # (AUTO) 0.3 (0.0-0.4); EOSINOPHILS % 4.9 % (0.0-6.0); HEMATOCRIT 35.2 % (34.2-44.1); HEMOGLOBIN 11.2 g/dL (12.0-16.0); LYMPHOCYTES # (AUTO) 1.5 (1.0-3.2); LYMPHOCYTES % 27.3 % (18.0-39.1); MEAN CORPUSCULAR HEMOGLOBIN 31.3 pg (28-32); MEAN CORPUSCULAR HGB CONC 31.8 g/dL (31-35); MEAN CORPUSCULAR VOLUME 98.3 fL (81-99); MONOCYTES # (AUTO) 0.4 (0.2-0.8); MONOCYTES % 7.9 % (4.4-11.3); NEUTROPHILS # (AUTO) 3.2 (2.1-6.9); NEUTROPHILS % 58.8 % (38.7-80.0); PLATELET COUNT 225 x10e3/uL (140-360); RED BLOOD COUNT 3.58 x10e6/uL (3.6-5.1); RED CELL DISTRIBUTION WIDTH 13.8 % (11.7-14.4)
[2022-03-11] MEDS ORDERED: DIATRIZOATE MEGL/DIATRIZOA SOD 30 ML BTL PO ONE (16:13)
[2022-03-11 16:23] LABS: ALBUMIN 3.7 g/dL (3.5-5.0); ALBUMIN/GLOBULIN RATIO 1.5 (0.8-2.0); ANION GAP 13.1 mmol/L (8-16); CALCIUM 8.9 mg/dL (8.4-10.2); CREATININE, SERUM 1.19 mg/dL (0.57-1.11); POTASSIUM 3.1 mmol/L (3.5-5.1)
[2022-03-11 16:31] LABS: AMYLASE 38 U/L (25-125); LIPASE 25 U/L (8-78)
[2022-03-11] MEDS ORDERED: IOPAMIDOL 370 MG/ML 100 ML INFUS..BTL INJ ONE (16:59)
[2022-03-11] MEDS ORDERED: ONDANSETRON ODT4 MG PO (19:01)
[2022-03-15] MEDS ORDERED: BIOTIN2500 MCG PO (20:39)
[2022-03-15] MEDS ORDERED: VITAMIN B COMP1 EACH PO (20:39)
[2022-03-15] MEDS ORDERED: VITAMIN E1000 UNI1 PO (20:39)
[2022-03-15] MEDS ORDERED: [UNRECOGNIZED DRUG - OTHER] PO (20:39)
[2022-03-15] MEDS ORDERED: LISINOPRIL-HCT1 EAC2 PO (20:39)
[2022-03-15] MEDS ORDERED: EYE HEALTH COMPLEX PO (20:39)
== END 2022-03-11 19:15 | disposition home or self-care (01) ==
LOC: ER 15:40
DX: R11.2 Nausea with vomiting, unspecified (principal); E11.9 Type 2 diabetes mellitus without complications; J44.9 Chronic obstructive pulmonary disease, unspecified; E78.5 Hyperlipidemia, unspecified; I50.9 Heart failure, unspecified; I25.10 Atherosclerotic heart disease of native coronary artery without angina pectoris; D64.9 Anemia, unspecified
CPT/HCPCS: 36415; 74177; 80053; 82150; 83690; 85025; 99284; J2405; J7030; Q9963; Q9967

== ENCOUNTER 2022-04-30 11:46 | Inpatient (IN) | payer MEDICARE ==
[~2022-04-30] VITALS: Ht 157.5 cm; Wt 54.0 kg
[~2022-04-30 11:46] MED LIST changes: +MEGESTROL400 MG/10 PO; +ONDANSETRON ODT4 MG PO
[2022-04-30 12:39] LABS: BASOPHILS # (AUTO) 0.1 (0.0-0.1); BASOPHILS % 0.5 % (0.0-1.0); EOSINOPHILS # (AUTO) 0.4 (0.0-0.4); HEMATOCRIT 36.8 % (34.2-44.1); HEMOGLOBIN 11.4 g/dL (12.0-16.0); LYMPHOCYTES % 9.9 % (18.0-39.1); MEAN CORPUSCULAR VOLUME 96.8 fL (81-99); MONOCYTES # (AUTO) 0.7 (0.2-0.8); MONOCYTES % 7.4 % (4.4-11.3); NEUTROPHILS # (AUTO) 7.5 (2.1-6.9); NEUTROPHILS % 77.8 % (38.7-80.0); PLATELET COUNT 321 x10e3/uL (140-360); RED CELL DISTRIBUTION WIDTH 14.4 % (11.7-14.4)
[2022-04-30 12:54] LABS: ALBUMIN 3.1 g/dL (3.5-5.0); ALBUMIN/GLOBULIN RATIO 0.9 (0.8-2.0); ANION GAP 15.1 mmol/L (8-16); CALCIUM 8.8 mg/dL (8.4-10.2); CREATININE, SERUM 0.71 mg/dL (0.57-1.11); POTASSIUM 3.1 mmol/L (3.5-5.1)
[2022-04-30] MEDS ORDERED: IOPAMIDOL 370 MG/ML 100 ML INFUS..BTL INJ ONE (13:25)
[2022-04-30 14:03] LABS: CLARITY,URINE CLEAR (CLEAR); COLOR,URINE YELLOW (YELLOW); LEUKOCYTE ESTERASE ,URINE NEGATIVE (NEGATIVE); NITRITE,URINE NEGATIVE (NEGATIVE); PROTEIN,URINE DIPSTICK 1+ (NEGATIVE)
[2022-04-30 14:04] LABS: KETONES,URINE NEGATIVE (NEGATIVE); URINE UROBILINOGEN 1 mg/dL (0.2 - 1)
[2022-04-30 14:16] LABS: BACTERIA,URINE FEW /HPF; EPITHELIAL CELLS,URINE MANY /LPF; RBC,URINE 0-5 /HPF (0-5)
[2022-04-30] MEDS ORDERED: METRONIDAZOLE 500MG/NS 100ML 100 ML IV ONE (15:57)
[2022-04-30] MEDS ORDERED: ONDANSETRON HCL INJ 2MG/ML 2ML 2 MG/ML VIAL IV PRN (16:00)
[2022-04-30] MEDS ORDERED: CEFTRIAXONE 1 GM VIAL IV ONE (16:00)
[2022-04-30 17:50] VITALS: BP 159/64
[2022-04-30] MEDS: SODIUM CHLORIDE 0.9% 1000ML 1,000 ML IV SCH (18:35)
[2022-04-30] MEDS ORDERED: ATIVAN0.5 MG PO (19:45)
[2022-04-30] MEDS ORDERED: PROMETHAZINE HC25 M1 PO (19:50)
[2022-04-30] MEDS ORDERED: TYLENOL325 MG PO (19:53)
[2022-04-30 20:00] VITALS: BP 154/63
[2022-04-30] MEDS: LORAZEPAM INJ 2 MG/ML VIAL IV PRN (22:50)
[2022-05-01] VITALS (8 sets, daily range): BP systolic 111–152; BP diastolic 51–85
[2022-05-01 06:43] LABS: BASOPHILS # (AUTO) 0.1 (0.0-0.1); BASOPHILS % 0.6 % (0.0-1.0); EOSINOPHILS # (AUTO) 0.6 (0.0-0.4); EOSINOPHILS % 7.1 % (0.0-6.0); HEMATOCRIT 30.9 % (34.2-44.1); HEMOGLOBIN 10.1 g/dL (12.0-16.0); LYMPHOCYTES # (AUTO) 1.1 (1.0-3.2); LYMPHOCYTES % 14.5 % (18.0-39.1); MEAN CORPUSCULAR HEMOGLOBIN 30.1 pg (28-32); MEAN CORPUSCULAR HGB CONC 32.7 g/dL (31-35); MEAN CORPUSCULAR VOLUME 92.2 fL (81-99); MONOCYTES # (AUTO) 0.7 (0.2-0.8); MONOCYTES % 9.4 % (4.4-11.3); NEUTROPHILS # (AUTO) 5.3 (2.1-6.9); NEUTROPHILS % 67.9 % (38.7-80.0); PLATELET COUNT 302 x10e3/uL (140-360); RED BLOOD COUNT 3.35 x10e6/uL (3.6-5.1); RED CELL DISTRIBUTION WIDTH 14.4 % (11.7-14.4)
[2022-05-01 07:18] LABS: ALBUMIN 2.3 g/dL (3.5-5.0); ALBUMIN/GLOBULIN RATIO 0.8 (0.8-2.0); ANION GAP 13.8 mmol/L (8-16); CREATININE, SERUM 0.59 mg/dL (0.57-1.11)
[2022-05-01 07:19] LABS: POTASSIUM 2.8 mmol/L (3.5-5.1)
[2022-05-01] MEDS: SODIUM CHLORIDE 0.9% 1000ML 1,000 ML IV SCH ×3 (08:46→22:48)
[2022-05-01] MEDS ORDERED: KETOROLAC TROMETHAMINE 30 MG/ML VIAL IV PRN (13:45)
[2022-05-01] MEDS: POTASSIUM CHLORIDE 10MEQ/100ML 100 ML IV SCH ×4 (15:15→23:43)
[2022-05-01] MEDS: LORAZEPAM INJ 2 MG/ML VIAL IV PRN (20:33)
[2022-05-02] VITALS (8 sets, daily range): BP systolic 107–166; BP diastolic 37–71
[2022-05-02] MEDS: POTASSIUM CHLORIDE 10MEQ/100ML 100 ML IV SCH (02:14)
[2022-05-02 07:19] LABS: ANION GAP 11.4 mmol/L (8-16); CALCIUM 7.7 mg/dL (8.4-10.2); CREATININE, SERUM 0.55 mg/dL (0.57-1.11); MAGNESIUM 1.5 MG/DL (1.3-2.1); POTASSIUM 3.4 mmol/L (3.5-5.1)
[2022-05-02 07:40] LABS: PHOSPHORUS 2.1 MG/DL (2.3-4.7)
[2022-05-02] MEDS ORDERED: MAGNESIUM SULFATE 2GM/50ML 50 ML IV ONE (10:30)
[2022-05-02] MEDS ORDERED: PROPOFOL IV EMULSION 10 MG/ML 20 ML VIAL ONE (12:00)
[2022-05-02] MEDS ORDERED: HYDRALAZINE HCL 20 MG/ML VIAL ONE ×2 (12:00→16:03)
[2022-05-02] MEDS ORDERED: ETOMIDATE 2 MG/ML 10 ML INJ IV ONE (12:00)
[2022-05-02] MEDS ORDERED: POTASSIUM PHOSPHATE 15 MM in SODIUM CHLORIDE 0.9% 250ML 250 ML IV ONE (12:45)
[2022-05-02] MEDS ORDERED: PROPOFOL IV EMULSION 50 ML IV ONE (14:30)
[2022-05-02] MEDS ORDERED: ETOMIDATE 40 MG/ 20ML VIAL IV ONE (15:36)
[2022-05-02] MEDS ORDERED: BENZOCAINE/TETRACAINE/BUTAMBEN AERO SPRAY 56 GM CAN ONE (15:36)
[2022-05-02] MEDS ORDERED: DEXMEDETOMIDINE HCL 2 ML ONE (15:42)
[2022-05-02] MEDS: SODIUM CHLORIDE 0.9% 1000ML 1,000 ML IV SCH (16:00)
[2022-05-03] VITALS: BP 144/60
[2022-05-03 04:00] VITALS: BP 154/63
[2022-05-03] MEDS ORDERED: ALBUTEROL SULFATE HFA 8GM INHALATION AEROSOL INH PRN (04:15)
[2022-05-03] MEDS ORDERED: PROMETHAZINE HCL 25 MG TAB PO PRN (04:15)
[2022-05-03] MEDS: SODIUM CHLORIDE 0.9% 1000ML 1,000 ML IV SCH (06:18)
[2022-05-03 06:21] LABS: BASOPHILS % 0.6 % (0.0-1.0); EOSINOPHILS # (AUTO) 0.3 (0.0-0.4); EOSINOPHILS % 3.8 % (0.0-6.0); HEMATOCRIT 28.5 % (34.2-44.1); HEMOGLOBIN 9.6 g/dL (12.0-16.0); LYMPHOCYTES % 14.9 % (18.0-39.1); MEAN CORPUSCULAR HEMOGLOBIN 30.3 pg (28-32); MEAN CORPUSCULAR HGB CONC 33.7 g/dL (31-35); MEAN CORPUSCULAR VOLUME 89.9 fL (81-99); MONOCYTES # (AUTO) 0.6 (0.2-0.8); MONOCYTES % 8.7 % (4.4-11.3); NEUTROPHILS # (AUTO) 4.7 (2.1-6.9); NEUTROPHILS % 71.5 % (38.7-80.0); PLATELET COUNT 329 x10e3/uL (140-360); RED BLOOD COUNT 3.17 x10e6/uL (3.6-5.1); RED CELL DISTRIBUTION WIDTH 13.8 % (11.7-14.4)
[2022-05-03 06:55] LABS: ANION GAP 14.2 mmol/L (8-16); CALCIUM 7.5 mg/dL (8.4-10.2); CREATININE, SERUM 0.54 mg/dL (0.57-1.11); MAGNESIUM 1.8 MG/DL (1.3-2.1); PHOSPHORUS 2.2 MG/DL (2.3-4.7); POTASSIUM 3.2 mmol/L (3.5-5.1)
[2022-05-03] MEDS ORDERED: PANTOPRAZOLE SOD 40 MG TABEC PO SCH (07:30)
[2022-05-03 08:17] VITALS: BP 169/63
[2022-05-03] MEDS ORDERED: POTASSIUM CHLORIDE 20 MEQ TAB CR PO STA (08:52)
[2022-05-03] MEDS ORDERED: LORAZEPAM 0.5 MG TAB PO SCH (09:00)
[2022-05-03] MEDS ORDERED: NYSTATIN/TRIAMCINOLONE 30 GM CR TOP SCH (09:00)
[2022-05-03] MEDS ORDERED: DONEPEZIL HCL 5 MG TAB PO SCH (09:00)
[2022-05-03] MEDS ORDERED: METOPROLOL SUCCINATE 25 MG TAB XL PO SCH (09:00)
[2022-05-03] MEDS ORDERED: Nystatin/Triamcinolone TOP (09:59)
[2022-05-03 11:25] VITALS: BP 152/66
[2022-05-03] MEDS ORDERED: ONDANSETRON HCL 4 MG ORAL DISINTEGRATING TAB SL PRN (11:30)
[2022-05-03] MEDS ORDERED: TRAZODONE HCL 50 MG TAB PO SCH (21:00)
== END 2022-05-03 11:50 | disposition home or self-care (01) | DRG 394 ==
LOC: ER 12:03 → ERHOLD 16:05 → MED/SURG3 17:31 → OBSVTOIN 05-02 14:44
PROVIDERS: ADMIT Internal Medicine; ATTEND Internal Medicine
PROC: 0DH68UZ Insertion of Feeding Device into Stomach, Via Natural or Artificial Opening Endoscopic (ICD-10-PCS; 2022-05-02)
PROC: 0D758ZZ Dilation of Esophagus, Via Natural or Artificial Opening Endoscopic (ICD-10-PCS; 2022-05-02)
PROC: 02HV33Z Insertion of Infusion Device into Superior Vena Cava, Percutaneous Approach (ICD-10-PCS; 2022-05-02)
PROC: 0DP68UZ Removal of Feeding Device from Stomach, Via Natural or Artificial Opening Endoscopic (ICD-10-PCS; principal; 2022-05-02 15:33)
DX: Z43.1 Encounter for attention to gastrostomy (principal); K55.1 Chronic vascular disorders of intestine; K22.2 Esophageal obstruction; E83.42 Hypomagnesemia; E87.6 Hypokalemia; I10 Essential (primary) hypertension; E11.9 Type 2 diabetes mellitus without complications; E83.39 Other disorders of phosphorus metabolism; Z88.0 Allergy status to penicillin; Z88.8 Allergy status to other drugs, medicaments and biological substances; Z87.891 Personal history of nicotine dependence; K29.70 Gastritis, unspecified, without bleeding; Z66 Do not resuscitate; F03.90 Unspecified dementia, unspecified severity, without behavioral disturbance, psychotic disturbance, mood disturbance, and anxiety; J44.9 Chronic obstructive pulmonary disease, unspecified; Z85.118 Personal history of other malignant neoplasm of bronchus and lung; Z88.5 Allergy status to narcotic agent; Z20.822 Contact with and (suspected) exposure to COVID-19
CPT/HCPCS: 36415; 36568; 43450; 74177; 80048; 80053; 81001; 82948; 83690; 83735; 84100; 85025; 94799; 96361; 99252; 99284; G0378; J0360; J0696; J2060; J3475; J3480; J7030; J7050; Q9967

== ENCOUNTER 2022-05-26 21:22 | Observation (INO) | payer MEDICARE ==
[~2022-05-26] VITALS: Ht 157.5 cm; Wt 54.0 kg
[~2022-05-26 21:22] MED LIST changes: +ATIVAN0.5 MG PO; +Nystatin/Triamcinolone TOP; +PROMETHAZINE HC25 M1 PO; +TYLENOL325 MG PO
[2022-05-26 22:41] LABS: BASOPHILS # (AUTO) 0.1 (0.0-0.1); EOSINOPHILS # (AUTO) 0.4 (0.0-0.4); EOSINOPHILS % 7.1 % (0.0-6.0); HEMATOCRIT 40.2 % (34.2-44.1); MEAN CORPUSCULAR HEMOGLOBIN 29.3 pg (28-32); MEAN CORPUSCULAR HGB CONC 32.3 g/dL (31-35); MEAN CORPUSCULAR VOLUME 90.5 fL (81-99); MONOCYTES # (AUTO) 0.6 (0.2-0.8); MONOCYTES % 9.9 % (4.4-11.3); NEUTROPHILS # (AUTO) 3.1 (2.1-6.9); NEUTROPHILS % 49.5 % (38.7-80.0); PLATELET COUNT 252 x10e3/uL (140-360); RED BLOOD COUNT 4.44 x10e6/uL (3.6-5.1); RED CELL DISTRIBUTION WIDTH 14.9 % (11.7-14.4)
[2022-05-26 22:51] LABS: INR 0.98; PROTHROMBIN TIME 13.2 seconds (11.9-14.5)
[2022-05-26 22:52] LABS: PARTIAL THROMBOPLASTIN TIME 27.4 seconds (23.8-35.5)
[2022-05-26 22:57] LABS: ALBUMIN 3.7 g/dL (3.5-5.0); ALBUMIN/GLOBULIN RATIO 1.1 (0.8-2.0); ANION GAP 16.5 mmol/L (8-16); CALCIUM 9.7 mg/dL (8.4-10.2); CREATININE, SERUM 0.74 mg/dL (0.57-1.11)
[2022-05-26 22:59] LABS: POTASSIUM 5.5 mmol/L (3.5-5.1)
[2022-05-27] VITALS (11 sets, daily range): BP systolic 90–159; BP diastolic 47–87
[2022-05-27] MEDS ORDERED: SODIUM CHLORIDE 0.9% 1000ML 1,000 ML IV SCH
[2022-05-27] MEDS ORDERED: DEXTROSE 5%/0.45% SOD CHL 1,000 ML IV ONE (00:30)
[2022-05-27] MEDS: ONDANSETRON HCL INJ 2MG/ML 2ML 2 MG/ML VIAL IV PRN (01:25)
[2022-05-27] MEDS ORDERED: TEMAZEPAM15 MG PO (02:14)
[2022-05-27 07:30] LABS: BASOPHILS # (AUTO) 0.1 (0.0-0.1); EOSINOPHILS # (AUTO) 0.4 (0.0-0.4); EOSINOPHILS % 7.7 % (0.0-6.0); HEMATOCRIT 35.8 % (34.2-44.1); HEMOGLOBIN 11.9 g/dL (12.0-16.0); LYMPHOCYTES # (AUTO) 1.6 (1.0-3.2); LYMPHOCYTES % 30.2 % (18.0-39.1); MEAN CORPUSCULAR HEMOGLOBIN 29.2 pg (28-32); MEAN CORPUSCULAR HGB CONC 33.2 g/dL (31-35); MEAN CORPUSCULAR VOLUME 87.7 fL (81-99); MONOCYTES # (AUTO) 0.5 (0.2-0.8); MONOCYTES % 10.1 % (4.4-11.3); NEUTROPHILS # (AUTO) 2.6 (2.1-6.9); NEUTROPHILS % 50.8 % (38.7-80.0); PLATELET COUNT 232 x10e3/uL (140-360); RED BLOOD COUNT 4.08 x10e6/uL (3.6-5.1); RED CELL DISTRIBUTION WIDTH 14.5 % (11.7-14.4)
[2022-05-27 07:41] LABS: ALBUMIN 3.1 g/dL (3.5-5.0); ALBUMIN/GLOBULIN RATIO 1.2 (0.8-2.0); CALCIUM 8.8 mg/dL (8.4-10.2); CREATININE, SERUM 0.67 mg/dL (0.57-1.11)
[2022-05-27] MEDS ORDERED: PROPOFOL IV EMULSION 10 MG/ML 20 ML VIAL ONE (12:38)
[2022-05-27] MEDS ORDERED: POVIDONE IODINE 0.05% 0.05 % ML PO ONE (12:38)
[2022-05-27] MEDS ORDERED: Morphine 2mg Syringe 2 MG/ML SYR IV PRN (21:00)
[2022-05-27] MEDS ORDERED: LORAZEPAM INJ 2 MG/ML VIAL IV PRN (21:00)
[2022-05-27] MEDS: LORAZEPAM INJ 2 MG/ML VIAL IV PRN (21:06)
[2022-05-28] VITALS (7 sets, daily range): BP systolic 131–166; BP diastolic 50–70
[2022-05-28] MEDS: LACTATED RINGER'S 1,000 ML INJ SCH ×2 (02:19→14:20)
[2022-05-28] MEDS: ONDANSETRON HCL INJ 2MG/ML 2ML 2 MG/ML VIAL IV PRN (02:20)
[2022-05-28] MEDS: LORAZEPAM INJ 2 MG/ML VIAL IV PRN (10:55)
[2022-05-28] MEDS ORDERED: METOPROLOL SUCCINATE 25 MG TAB XL PO SCH (19:00)
== END 2022-05-28 21:15 | disposition home or self-care (01) ==
LOC: ER 21:30 → ERHOLD 23:51 → MED/SURG2 05-27 00:29
PROVIDERS: ADMIT Internal Medicine; ATTEND Internal Medicine
DX: T18.128A Food in esophagus causing other injury, initial encounter (principal); K94.23 Gastrostomy malfunction; F03.90 Unspecified dementia, unspecified severity, without behavioral disturbance, psychotic disturbance, mood disturbance, and anxiety; I10 Essential (primary) hypertension; Z20.822 Contact with and (suspected) exposure to COVID-19; J44.9 Chronic obstructive pulmonary disease, unspecified; I11.0 Hypertensive heart disease with heart failure; I50.9 Heart failure, unspecified; E11.69 Type 2 diabetes mellitus with other specified complication; E78.2 Mixed hyperlipidemia; K22.2 Esophageal obstruction
CPT/HCPCS: 36415 ×3; 36568; 36569; 43246; 43247; 43248; 80053 ×2; 82948; 85025 ×2; 85610; 85730; 99284; G0378 ×3; J2060 ×2; J2270; J2405 ×2; J2704; J7121; U0002; 43235; 43450